=== PATIENT | female | born 1990 | race Caucasian/White ===

== ENCOUNTER → 2019-11-21 10:37 | Outpatient (BNVA) | payer OTHER, SELFPAY | PROVIDERS: Family Provider Registered Nurse; PCP Nurse Practitioner; Referring Provider Obstetrics & Gynecology; Visit Provider Obstetrics & Gynecology | DX: Z32.01 Encounter for pregnancy test, result positive (principal) | CPT/HCPCS: 81025 ==

== ENCOUNTER → 2019-12-12 12:41 | Outpatient (BNVA) | payer OTHER, SELFPAY | PROVIDERS: Family Provider Registered Nurse; PCP Nurse Practitioner; Visit Provider Nurse Practitioner Women's Health | DX: Z01.89 Encounter for other specified special examinations (principal) | CPT/HCPCS: 84315 ==

== ENCOUNTER 2019-12-14 10:42 | Emergency (ER) | payer OTHER, SELFPAY ==
[2019-12-14 11:02] VITALS: BP 132/90; PULSE 96; RESP 17; TEMP 36.7; O2SAT 100; BMI 20.9
--- NOTE | 2019-12-14 11:08 | ED_ITS ---
Entered by Brian Trevino, acting as scribe for Fernando Almeida DO HPI - Abdominal Pain General: Chief Complaint: Abdominal Pain Stated Complaint: 8WEEKS AND CRAMPING Time Seen by Provider: 12/14/19 11:09 History of Present Illness: HPI narrative: 29 yo female presents with abd pain and spotting. Pt states that the spotting has stopped but her abdomen is still hurting. Pt states that she will have some nausea and vomiting. Patient is currently suspect she is about 6 to 8 weeks along. MD elicited complaint: abdominal pain Pertinent past history: none Pain Consistency: intermittent Location: LUQ Severity: mild Quality: cramping Migration to: no migration Exacerbating factors: nothing Relieving factors: nothing Associated Symptoms: Denies chills, coffee ground emesis, constipation, GI cramping, diarrhea, dysuria, fever(s), heartburn, hematochezia, hematuria, hematemesis, melena, nausea, syncope and vomiting Review of Systems Const: Denies: fever, chills, body aches, fatigue, malaise or night sweats Eyes: Denies: change in vision or blurry vision ENMT: Denies: throat pain, oral sores/lesions, dental pain, nasal discharge or nasal congestion Card: Denies: chest pain, palpitations, irregular heart rhythm, edema, syncope, shortness of breath on exertion, shortness of breath when lying down or leg pain with exertion Resp: Denies: shortness of breath, productive cough, non-productive cough or wheezing GI: Denies: abdominal pain, nausea, vomiting, vomiting blood, coffee grounds in vomit, difficulty swallowing, heartburn/indigestion, diarrhea, constipation, cramping, blood in stool or black tarry stool : Denies: flank pain, painful urination, urinary frequency, urinary urgency, urinary incontinence or blood in urine Musc: Denies: neck pain, back pain, extremity pain, extremity swelling, joint pain or joint swelling Skin/Breast: Denies: rash, itching or redness Neuro: Denies: headache, numbness in extremities, weakness in extremities, changes in sensation, lack of coordination, difficulty walking, frequent falls, dizziness, vertigo or confusion Psych: Denies: anxiety, depression, loss of interest, visual hallucinations, auditory hallucinations, suicidal ideation or homicidal ideation Endo: Denies: excessive urination, excessive thirst, tired all the time or cold intolerance Lb/Lymph: Denies: easy bruising, easy bleeding, petechiae, enlarged lymph nodes or tender lymph nodes PFSH ED PFSH: Medical History Endometriosis determined by laparoscopy (~2013) History of PID (~2017) Surgical History H/O laparoscopy 2013--ov cyst removal; caut of endometriosis 2014-- cautery of endometriosis History of appendectomy (~2017) History of cholecystectomy (~2011) Family History Mother Hyperlipidemia Hypertension Family history of thyroid problem Denies family history of Diabetes Cancer Stroke Social History Smoking and tobacco status: never smoked Alcohol intake: former Former alcohol use details: Social before Physical Exam Const: COMMON NORMALS: average body habitus, oriented x3 and alert GENERAL APPEARANCE: cooperative, comfortable, well kempt and well developed NUTRITIONAL APPEARANCE: not obese ORIENTATION/CONSCIOUSNESS: Yes awake, Yes oriented to person and Yes oriented to place HENMT: COMMON NORMALS: normocephalic, head/scalp atraumatic, EAC's normal, TM's normal bilaterally, external nose normal, moist oral mucous membranes and oropharynx normal HEAD & SCALP: normocephalic and atraumatic NOSE: external nose normal EXTERNAL AUDITORY CANAL: EAC's normal TYMPANIC MEMBRANE: TM's normal bilaterally MOUTH: oral and palatal mucosa normal, lip normal and tongue normal THROAT: posterior oropharynx normal and tonsils normal Eye: COMMON NORMALS: PERRL, EOMs intact bilaterally, conjunctivae normal and no scleral icterus CONJUNCTIVA: Yes conjunctivae normal PUPIL: Yes PERRL Neck/C-Spine: COMMON NORMALS: full ROM, no lymphadenopathy, supple, no meningeal signs and thyroid normal THYROID: thyroid normal and asymmetrical Lymph: LYMPHATIC: no lymphadenopathy noted Resp: COMMON NORMALS: normal respiratory effort, no retractions, no use of accessory muscles and clear to auscultation bilaterally AUSCULTATION: clear to auscultation bilaterally Cardio: COMMON NORMALS: regular rate and regular rhythm RATE: regular rate RHYTHM: regular rhythm HEART SOUNDS: no murmurs GI: COMMON NORMALS: normal to inspection, nondistended, normoactive bowel sounds and soft to palpation PALPATION: Yes soft and Yes tender (lower abdomen ) : COMMON NORMALS: Yes no CVA tenderness BLADDER/KIDNEY EXAM: Yes no CVA tenderness Back/Pelvis: COMMON NORMALS: no CVA tenderness LUMBAR SPINE/LOWER BACK: Yes normal to inspection Extremity: COMMON NORMALS: no clubbing, cyanosis or edema, no calf tenderness and no pedal edema Neuro: COMMON NORMALS: oriented x3 SENSORIUM/ORIENTATION: Yes alert, Yes oriented to person and Yes oriented to place MENINGEAL SIGNS: Yes no meningeal signs Psych: APPEARANCE: Yes well kempt Skin: COMMON NORMALS: no rashes or lesions noted and skin turgor normal GENERAL SKIN EXAM: no rashes or lesions noted and turgor normal Course ED course: Pelvic exam unremarkable there is no blood at the eyes ultrasound confirms intrauterine with subchorionic hemorrhage. Discussed findings with the patient follow-up with primary care doctor in the next within the next week fizzing worsening of bleeding or recurrent Kathrin recheck. Vital Signs: Vital signs: Vital Signs Temperature 98.1 F 12/14/19 11:02 Pulse Rate 87 12/14/19 12:32 Respiratory Rate 15 12/14/19 12:32 Blood Pressure 121/72 12/14/19 12:32 Pulse Oximetry 100 12/14/19 12:32 MDM - Abdominal Pain Lab Data: Labs: Lab Results 12/14/19 12/14/19 12/14/19 Range/Units 11:18 11:18 11:27 WBC (4.0-10.0) 10^3/ uL RBC (4.1-5.3) 10^6/u L Hgb (11.5-15.3) g/dL Hct (37.0-47.0) % MCV (81-99) fL MCH (28.0-34.0) pg MCHC (30.0-36.0) g/dL RDW (12.1-15.1) % Plt Count (130-400) 10^3/c mm MPV (7.4-10.4) fL Neut % (Auto) % Lymph % (Auto) % [place] % (Auto) % Eos % (Auto) % Baso % (Auto) % Neut # (Auto) (1.8-7.7) 10^3/u L Lymph # (Auto) (0.8-4.8) 10^3/u L [place] # (Auto) (0.2-0.9) 10^3/u L Eos # (Auto) (0.0-0.8) 10^3/u L Baso # (Auto) (0.0-0.1) 10^3/u L Nucleated RBC % (a uto) % Nucleated RBCs # /100WBC Sodium (136-145) mmol/L Potassium (3.5-5.1) mmol/L Chloride (98-107) mmol/L Carbon Dioxide (22-29) mmol/L Anion Gap (5-19) BUN (6-20) mg/dL Creatinine (0.5-0.9) mg/dL GFR Calculation (90-130) mL/min Glucose (65-115) mg/dL Calcium (8.5-10.5) mg/dL Total Bilirubin (0.15-1.2) mg/dL AST (0-32) U/L ALT (0-33) U/L Alkaline Phosphata se (35-105) IU/L Total Protein (6.6-8.7) g/dL Albumin (3.5-5.2) g/dL Globulin (1.3-4.6) g/dL HCG, Qual Positive H (Negative) Ser , Chaz i-Qnt mIU/mL Urine Color Straw (Yellow) Urine Appearance Clear (CLEAR) Urine pH 7.0 (5-7) Ur Specific Gravit y 1.010 (1.005-1.030) Urine Protein Neg (Negative) Urine Glucose (UA) Norm (Normal) Urine Ketones Negative (Negative) Urine Blood Neg (Negative) Urine Nitrate Negative (Negative) Urine Bilirubin Neg (NEGATIVE) Urine Urobilinogen Norm (Negative) mg/dL Ur Leukocyte Geovanna ase Negative (Negative) Rho(D) Type Positive 12/14/19 12/14/19 Range/Units 11:27 11:27 WBC 7.7 (4.0-10.0) 10^3/ uL RBC 3.88 L (4.1-5.3) 10^6/u L Hgb 11.8 (11.5-15.3) g/dL Hct 35.5 L (37.0-47.0) % MCV 91.5 (81-99) fL MCH 30.4 (28.0-34.0) pg MCHC 33.2 (30.0-36.0) g/dL RDW 12.5 (12.1-15.1) % Plt Count 202 (130-400) 10^3/c mm MPV 9.8 (7.4-10.4) fL Neut % (Auto) 69.9 % Lymph % (Auto) 18.2 % [place] % (Auto) 10.7 % Eos % (Auto) 0.7 % Baso % (Auto) 0.1 % Neut # (Auto) 5.4 (1.8-7.7) 10^3/u L Lymph # (Auto) 1.4 (0.8-4.8) 10^3/u L [place] # (Auto) 0.8 (0.2-0.9) 10^3/u L Eos # (Auto) 0.1 (0.0-0.8) 10^3/u L Baso # (Auto) 0.0 (0.0-0.1) 10^3/u L Nucleated RBC % (a uto) 0 % Nucleated RBCs # 0.0 /100WBC Sodium 136 (136-145) mmol/L Potassium 4.1 (3.5-5.1) mmol/L Chloride 102 (98-107) mmol/L Carbon Dioxide 22 (22-29) mmol/L Anion Gap 16.1 (5-19) BUN 7 (6-20) mg/dL Creatinine 0.6 (0.5-0.9) mg/dL GFR Calculation 118.2 (90-130) mL/min Glucose 96 (65-115) mg/dL Calcium 9.8 (8.5-10.5) mg/dL Total Bilirubin 0.4 (0.15-1.2) mg/dL AST 12 (0-32) U/L ALT 7 (0-33) U/L Alkaline Phosphata se 38 (35-105) IU/L Total Protein 7.5 (6.6-8.7) g/dL Albumin 4.3 (3.5-5.2) g/dL Globulin 3.2 (1.3-4.6) g/dL HCG, Qual (Negative) Ser , Chaz i-Qnt 04063.00 mIU/mL Urine Color (Yellow) Urine Appearance (CLEAR) Urine pH (5-7) Ur Specific Gravit y (1.005-1.030) Urine Protein (Negative) Urine Glucose (UA) (Normal) Urine Ketones (Negative) Urine Blood (Negative) Urine Nitrate (Negative) Urine Bilirubin (NEGATIVE) Urine Urobilinogen (Negative) mg/dL Ur Leukocyte Geovanna ase (Negative) Rho(D) Type Discharge Plan Discharge Patient Disposition: Home, Self-Care Clinical Impression: Subchorionic hemorrhage in first trimester Condition: Stable Prescriptions: No Action No Known Home Medications RF: 0 Discharge Orders: Discharge Order (Routine); Ordered 12/14/19 Ordered By: Fernando Almeida Referrals: Juliane Sood FNP [Primary Care Provider] - Faith Daniel FNP [Family Provider] - Discharge Diet: Usual diet Discharge Activity: Limit activity as instructed Activity Restrictions/Additional Instructions: Follow-up with your OB doctor early next week. Discharge Date/Time: 12/14/19 12:33 Coding Level of Care Code ED Automotive Technician for Chg Fwd Exam Comprehensive The documentation recorded by the Uriel miranda Kialy, accurately reflects the service I personally performed and the decisions made by Juan Pablo dumont Curtis L, DO Dec 14, 2019 10:42
[2019-12-14 11:12] VITALS: PULSE 76; RESP 16; O2SAT 97
[2019-12-14 11:14] VITALS: RESP 16
[2019-12-14 11:23] LABS: Add Urine Microscopic? NO
--- NOTE | 2019-12-14 11:27 | US_ITS ---
WS: [id number] OB ultrasound, 12/14/2019 Clinical Data: viability Comparison: None. Findings: There is a single intrauterine . There is an IUD in the endometrium. The crown-rump length i s 1.02 cm consistent with a 7 week 1 day gestational age with an SHARYN of 07/31/2020. heart rate is 144 bpm There is a small subchorionic hematoma which measures 0.38 x 0.46 x 0.99 cm. The uterus measures 4.1 x 8.1 cm. The right ovary is 2.26 x 2.49 x 3.83 cm with a simple cyst within measuring 1.0 x 1.7 x 1.68 cm. The left ovary measures 1.98 x 2.47 x 3.29 cm and has a small cyst lenny suring 1.09 x 1.12 x 1.89 cm. US/ OB limited [id number] Impression: 1. Single intrauterine .. 2. Estimated gestational age 7w1d with an SHARYN of 07/31/2020. 3. heart rate 144 beats per minute.
[2019-12-14 11:44] LABS: Basophils % 0.1 %; Eosinophils # 0.1 10^3/uL (0.0-0.8); Eosinophils % 0.7 %; Hematocrit 35.5 % (37.0-47.0); Hemoglobin 11.8 g/dL (11.5-15.3); Lymphocytes # 1.4 10^3/uL (0.8-4.8); Lymphocytes % 18.2 %; Mean Corpuscular HGB Conc 33.2 g/dL (30.0-36.0); Mean Corpuscular Hemoglobin 30.4 pg (28.0-34.0); Mean Corpuscular Volume 91.5 fL (81-99); Mean Platelet Volume 9.8 fL (7.4-10.4); Monocytes # 0.8 10^3/uL (0.2-0.9); Monocytes % 10.7 %; Neutrophils # 5.4 10^3/uL (1.8-7.7); Neutrophils % 69.9 %; Nucleated Red Blood Cells % 0 %; Platelet Count 202 10^3/cmm (130-400); Red Blood Count 3.88 10^6/uL (4.1-5.3); Red Cell Distribution Width 12.5 % (12.1-15.1); White Blood Count 7.7 10^3/uL (4.0-10.0)
[2019-12-14 11:51] LABS: HCG Qualitative Urine. Positive (Negative)
[2019-12-14 11:52] LABS: Bilirubin Urine Neg (NEGATIVE); Blood Urine Neg (Negative); Glucose Urine UA Norm (Normal); Ketones Urine Negative (Negative); Leukocyte Esterase Urine Negative (Negative); Nitrate Urine Negative (Negative); Protein Urine Neg (Negative); Urine Appearance Clear (CLEAR); Urine Color Straw (Yellow); Urobilinogen Urine Norm (Negative)
[2019-12-14 12:08] LABS: Alanine Aminotransferase 7 U/L (0-33); Albumin Level 4.3 g/dL (3.5-5.2); Alkaline Phosphatase 38 IU/L (35-105); Anion Gap 16.1 (5-19); Aspartate Amino Transferase 12 U/L (0-32); Blood Urea Nitrogen 7 mg/dL (6-20); Calcium 9.8 mg/dL (8.5-10.5); Carbon Dioxide 22 mmol/L (22-29); Chloride 102 mmol/L (98-107); Globulin 3.2 g/dL (1.3-4.6); Glomerular Filtration Rate 118.2 mL/min (90-130); Glucose 96 mg/dL (65-115); Potassium 4.1 mmol/L (3.5-5.1); Sodium 136 mmol/L (136-145); Total Bilirubin 0.4 mg/dL (0.15-1.2); Total Protein 7.5 g/dL (6.6-8.7)
[2019-12-14 12:32] VITALS: BP 121/72; PULSE 87; RESP 15; O2SAT 100
== END 2019-12-14 12:33 | disposition home or self-care (01) ==
PROVIDERS: Emergency Provider Family Medicine; Family Provider Registered Nurse; PCP Nurse Practitioner
DX: O46.8X1 Other antepartum hemorrhage, first trimester (principal); Z3A.01 Less than 8 weeks gestation of pregnancy
CPT/HCPCS: 36415; 76815; 80053; 81003; 81025; 84702; 85025; 87210; 87491; 87591; 87661; 99281; 99283; E0352

== ENCOUNTER → 2020-01-01 11:11 | Outpatient (BNVA) | payer OTHER, SELFPAY | PROVIDERS: Family Provider Registered Nurse; PCP Nurse Practitioner; Visit Provider Obstetrics & Gynecology | DX: Z01.89 Encounter for other specified special examinations (principal) | CPT/HCPCS: 84315 ==

== ENCOUNTER 2020-03-14 14:11 | Outpatient (CLI) | payer OTHER, MEDICAID, SELFPAY ==
--- NOTE | 2020-03-14 14:15 | US_ITS ---
WS: [id number] OBSTETRICAL ULTRASOUND COMPLETE HISTORY: ANATOMY COMPARISON: 12/14/2019 Single intrauterine gestation in variable presentation. Cervix is not well visualized. Normal amount of amniotic fluid surrounds the fetus. Placenta: Posterior and fundal. No previa or abruption. Placenta grade 0 Heart: 141 BPM. Four chambers are identified. Anatomy: Intracranial structures are limited due to positioning. Cervical spine is not well visualize d. The remaining spine is negative. kidneys, stomach and urinary bladder are unremarkable. Abdo jos wall, three-vessel cord and cord insertion site are normal. 4 extremities are present. profile: Not well visualized. Gender: Female. measurements: BPD = 4.7 cm = 20w1d HC = 17.6 cm = 20w1d AC = 14.7 cm = 20w0d FL = 3.3 cm = 20w1d EFW: 332 g., AGA by ultrasound: 20w1d SHARYN by ultrasound: 07/31/2020 US/US OB >= 14 weeks fetus [id number] IMPRESSION: 1. Single intrauterine gestation of 20w1d with an SHARYN of 07/31/2020. Appropria te growth since the prior ultrasound. 2. Poor evaluation of the cervix, profile, cervical spine and intracrani al structures. Recommend short-term follow-up. The remaining anatomy is negativ e.
== END 2020-03-14 14:12 | disposition home or self-care (01) ==
LOC: RAD 14:14
PROVIDERS: PCP Registered Nurse; Visit Provider Family Medicine
DX: Z34.80 Encounter for supervision of other normal pregnancy, unspecified trimester (principal); Z3A.20 20 weeks gestation of pregnancy
CPT/HCPCS: 76805

== ENCOUNTER 2020-04-18 13:27 | Outpatient (CLI) | payer OTHER, MEDICAID, SELFPAY ==
--- NOTE | 2020-04-18 13:33 | US_ITS ---
WS: [id number] ULTRASOUND OB LIMITED TECHNIQUE: Limited ultrasound examination of the fetus. CLINICAL INFORMATION: SUPERVISION NORMAL COMPARISON: March 14, 2020 FINDINGS: Intracranial contents appear normal today. Normal cervical spine. profile not seen to day. Cervix measures 2.5 cm. Single interuterine gestation. presentation is cephalic Placental location is posterior. Placenta grade: 0. heart rate 157 BPM. EGA by ultrasound: 25 weeks 1 day SHARYN by ultrasound: July 31, 2020 [place] [id number] IMPRESSION: 1. Intracranial contents appear normal today. Cervical spine normal. 2. profile again not well seen today. 3. Cervix measures 2.5 CM.
== END 2020-04-18 13:28 | disposition home or self-care (01) ==
LOC: RAD 13:29
PROVIDERS: PCP Registered Nurse; Visit Provider Family Medicine
DX: Z34.80 Encounter for supervision of other normal pregnancy, unspecified trimester (principal)
CPT/HCPCS: 76816

== ENCOUNTER 2020-05-06 08:50 | Observation (INO) | payer SELFPAY ==
[2020-05-06 09:05] VITALS: BMI 24.4
[2020-05-06 09:23] VITALS: RESP 20; TEMP 36.8
[2020-05-06 09:58] LABS: Basophils % 0.2 %; Eosinophils # 0.4 10^3/uL (0.0-0.8); Eosinophils % 4.3 %; Hematocrit 35.2 % (37.0-47.0); Hemoglobin 11.5 g/dL (11.5-15.3); Lymphocytes # 1.3 10^3/uL (0.8-4.8); Lymphocytes % 12.2 %; Mean Corpuscular HGB Conc 32.7 g/dL (30.0-36.0); Mean Corpuscular Hemoglobin 30.3 pg (28.0-34.0); Mean Corpuscular Volume 92.9 fL (81-99); Mean Platelet Volume 9.8 fL (7.4-10.4); Monocytes # 0.9 10^3/uL (0.2-0.9); Monocytes % 8.9 %; Neutrophils # 7.57 10^3/uL (1.8-7.7); Neutrophils % 73.5 %; Nucleated Red Blood Cells % 0 %; Platelet Count 171 10^3/cmm (130-400); Red Blood Count 3.79 10^6/uL (4.1-5.3); White Blood Count 10.3 10^3/uL (4.0-10.0)
[2020-05-06] MEDS: lactated ringers 1,000 ML 999 ML IV (09:58)
--- NOTE | 2020-05-06 10:06 | PC.NURSE ---
PT HERE WITH C/O SHORTNESS OF BREATH FOR PAST 2 DAYS. DENIES COUGHING ANYTHING UP, SOUNDS VERY NASAL CONGESTION, PT STATES BLEW HER NOSE THIS AM HAD CLEAR DISCHARGE. PT STATES CHEST FEELS TIGHT ACROSS STERNUM. SHE SAYS THIS SHORTNESS OF BREATH HAS BEEN GOING ON FOR THE PAST 2 DAYS.
[2020-05-06 10:25] LABS: Add Urine Culture? No; Bacteria Urine TRACE; Bilirubin Urine Neg (NEGATIVE); Blood Urine 2+ (Negative); Glucose Urine UA Norm (Normal); Ketones Urine Negative (Negative); Leukocyte Esterase Urine Negative (Negative); Nitrate Urine Negative (Negative); Protein Urine 1+ (Negative); Specific Gravity, Urine 1.015 (1.005-1.030); Squamous Epithelial Cell Urine 0-4 (0-5); Urine Appearance Clear (CLEAR); Urine Color Straw (Yellow); Urobilinogen Urine Norm (Negative); WBC Urine 0-4 /hpf (0-5); pH Urine 7 (5-7)
[2020-05-06 10:27] LABS: Alanine Aminotransferase 9 U/L (0-33); Albumin Level 3.8 g/dL (3.5-5.2); Alkaline Phosphatase 51 IU/L (35-105); Anion Gap 14.4 (5-19); Aspartate Amino Transferase 15 U/L (0-32); Blood Urea Nitrogen 6 mg/dL (6-20); Calcium 8.8 mg/dL (8.5-10.5); Carbon Dioxide 19 mmol/L (22-29); Chloride 106 mmol/L (98-107); Glomerular Filtration Rate 145.9 mL/min (90-130); Glucose 89 mg/dL (65-115); Osmolality Calculated 277 mOsm/kg (285-295); Potassium 3.4 mmol/L (3.5-5.1); Sodium 136 mmol/L (136-145); Total Bilirubin 0.3 mg/dL (0.15-1.2); Total Protein 6.8 g/dL (6.6-8.7)
[2020-05-06 11:38] VITALS: BP 113/67; PULSE 85; RESP 20; TEMP 36.8; O2SAT 100
== END 2020-05-06 11:20 | disposition home or self-care (01) ==
PROVIDERS: Admitting Provider Family Medicine; PCP Registered Nurse; Visit Provider Family Medicine
DX: O26.899 Other specified pregnancy related conditions, unspecified trimester (principal); Z3A.00 Weeks of gestation of pregnancy not specified; R06.02 Shortness of breath; R42 Dizziness and giddiness
CPT/HCPCS: 36415; 80053; 81001; 85025; 85378; 86141; 87635; 99211; G0378; G0379

== ENCOUNTER 2020-05-16 12:52 | Outpatient (CLI) | payer OTHER, MEDICAID, SELFPAY ==
--- NOTE | 2020-05-16 12:57 | XR_ITS ---
WS: [id number] CHEST 2 VIEWS HISTORY: DYSPNEA COMPARISON: 12/24/2010 Lungs: Clear with no abnormality. No pleural effusion or pneumothorax. Cardiac size: Normal. Mediastinum/Aorta: Normal mediastinum. Bones: Normal. Patient shielded. XR/XR chest 2V* [id number] IMPRESSION: Normal chest.
== END 2020-05-16 12:53 | disposition home or self-care (01) ==
LOC: RADWPI 12:56
PROVIDERS: Family Provider Registered Nurse; PCP Registered Nurse; Visit Provider Family Medicine
DX: R06.00 Dyspnea, unspecified (principal)
CPT/HCPCS: 71046

== ENCOUNTER 2020-05-17 12:40 | Outpatient (CLI) | payer OTHER, MEDICAID, SELFPAY ==
[2020-05-17 12:58] VITALS: BP 104/64; PULSE 80
[2020-05-17 13:13] VITALS: BP 104/67; PULSE 84
[2020-05-17 13:23] VITALS: BP 103/64; PULSE 88
[2020-05-17 13:31] VITALS: RESP 15; TEMP 36.7
[2020-05-17 13:31] LABS: Glucose Point of Care 93 mg/dL (70-110)
[2020-05-17 13:32] VITALS: BMI 23.9
[2020-05-17 13:33] VITALS: BP 100/59; PULSE 84
--- NOTE | 2020-05-17 13:35 | PC.NURSE ---
pt off monitors to be sent to ER for evaluation
[2020-05-17 13:36] VITALS: BP 105/67; PULSE 93
== END 2020-05-17 13:40 | disposition home or self-care (01) ==
LOC: OPOB 12:44 → OBGYN 12:45
PROVIDERS: Family Provider Registered Nurse; PCP Registered Nurse; Visit Provider Family Medicine
DX: O26.899 Other specified pregnancy related conditions, unspecified trimester (principal); Z3A.00 Weeks of gestation of pregnancy not specified; H54.7 Unspecified visual loss
CPT/HCPCS: 36416; 59025; 82962; 99211

== ENCOUNTER 2020-05-17 13:51 | Emergency (ER) | payer OTHER, MEDICAID, SELFPAY ==
[2020-05-17 13:57] VITALS: BP 111/67; PULSE 84; RESP 18; TEMP 36.9; O2SAT 100; BMI 24.6
--- NOTE | 2020-05-17 13:58 | ECG_ITS ---
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 Measurements Intervals [place] Rate: 78 P: 31 MD: 156 QRS: 27 QRSD: 96 T: 33 QT: 363 QTc: 413 Interpretive Statements SINUS RHYTHM No previous ECG available for comparison Electronically Signed On 05-17-2020 16:07:11 CDT by Julien Dickerson M.D. [id number]
--- NOTE | 2020-05-17 13:58 | CT_ITS ---
WS: [id number] CT HEAD TECHNIQUE: Noncontrast CT of the head obtained from the skullbase to the vertex. CLINICAL INFORMATION: Symptoms of Acute Stroke COMPARISON: None. DLP: 707.[address] scans at [facility] use at least one of these dose optimization techniques: automat ed exposure control; mA and/or kV adjustment per patient size (includes targeted exams where dose is matched to clinical indication); or iterative reconstruction. FINDINGS: No evidence of intracranial hemorrhage or mass effect. Ventricular system and basal cisterns are quijano nt. 2 small periventricular lesions in the periventricular white matter suspicious for chronic lacuna r infarcts or less likely sequelae from migraine headaches or demyelinating lesions. This could be fo llowed up with MRI. No other suspicious findings. Paranasal sinuses and mastoid air cells are well aerated. .Normal visualized soft tissues. Notified Fernando Almeida DO at 05/17/2020 2:[address]/CT head wo con* [id number] IMPRESSION: 1. No evidence of intracranial hemorrhage or mass effect 2. 2 small low-attenuation lesions in the bilateral periventricular white reese er suspicious for chronic ischemia/lacunar infarcts or less likely sequelae fro m migraine headaches or demyelinating disease. This can be followed up with MRI on an elective basis. 3. No acute intracranial findings.
--- NOTE | 2020-05-17 14:32 | W.ED.NEUROSD ---
HPI - Neuro Symptoms/Deficit General: Chief Complaint: Eye Problems Stated Complaint: blurred vision/29 weeks preg Time Seen by Provider: 05/17/20 13:58 History of Present Illness: HPI Narrative: 29-year-old female G5, P3 SAB 1 is at 29 weeks gestation sent in by her OB for acute vision changes symptoms. They are no longer present but she has had episodes where she has had scotoma and what she describes as wavy lines at the periphery of her vision. She is was evaluated in the office today for preeclampsia and had no significant findings in terms of blood pressure or proteinuria or edema. She had a known previous neuro deficits or strokes. Onset (ago): day(s) Timing confirmed by: family member Location: altered (Vision) History of same: Yes Severity: moderate Quality: weak Relieving factors: none Exacerbating factors: none Context: gradual onset On Anticoagulants: Yes Associated symptoms: Reports headache(s); Deny chest pain, malaise, nausea or vomiting Treatments Prior to Arrival: none Review of Systems Const: Denies: fever(s), chills, body aches, change in appetite, fatigue or malaise ENMT: Denies: throat pain, ear or mastoid pain, nasal discharge or nasal congestion Card: Denies: chest pain, edema, dyspnea on exertion or orthopnea Resp: Denies: dyspnea, productive cough or non-productive cough GI: Denies: abdominal pain, nausea, vomiting, hematemesis, coffee ground emesis, diarrhea, constipation, bloating, hematochezia or melena : Denies: flank pain, difficulty voiding, dysuria, urinary frequency or urinary urgency Skin/Breast: Denies: rash or pruritus Neuro: Reports: headache(s) PFSH ED PFSH: Medical History Endometriosis determined by laparoscopy (~2013) History of PID (~2017) Surgical History H/O laparoscopy 2013--ov cyst removal; caut of endometriosis 2014-- cautery of endometriosis History of appendectomy (~2017) laparosopic History of cholecystectomy (~2011) Laparoscopic Family History Mother Hyperlipidemia Hypertension Family history of thyroid problem Denies family history of Diabetes Cancer Stroke Social History Smoking and tobacco status: never smoked Alcohol intake: former Former alcohol use details: Social before Physical Exam Const: COMMON NORMALS: no acute distress GENERAL APPEARANCE: cooperative and comfortable ORIENTATION/CONSCIOUSNESS: Yes awake, Yes oriented to person, Yes oriented to place and Yes oriented to time HENMT: COMMON NORMALS: normocephalic, atraumatic, hearing grossly normal bilaterally, external ears normal, EAC's normal, TM's normal bilaterally, Normal nasal mucous membranes and turbinates present, moist oral mucous membranes and oropharynx normal HEAD & SCALP: normocephalic and atraumatic NOSE: Normal nasal mucous membranes and turbinates present EXTERNAL EAR: Yes external ears normal EXTERNAL AUDITORY CANAL: EAC's normal TYMPANIC MEMBRANE: TM's normal bilaterally Eye: COMMON NORMALS: Equal, round and reactive pupils present, EOMs intact bilaterally, conjunctivae normal and no scleral icterus CONJUNCTIVA: Yes conjunctivae normal PUPIL: Yes Equal, round and reactive pupils present Neck/C-Spine: COMMON NORMALS: full ROM, no lymphadenopathy, supple and no JVD Lymph: LYMPHATIC: no lymphadenopathy noted and no lymphedema noted Resp: COMMON NORMALS: normal respiratory effort, No retractions, No use of accessory muscles and clear to auscultation bilaterally AUSCULTATION: clear to auscultation bilaterally Cardio: COMMON NORMALS: no JVD, regular rate, regular rhythm and No murmurs present (Cardio) RATE: regular rate RHYTHM: regular rhythm GI: COMMON NORMALS: Soft to palpation and No hepatosplenomegaly present AUSCULTATION: Yes normoactive bowel sounds PALPATION: Yes Soft to palpation, No Tenderness to palpation present (GI), No Guarding due to palpation present (GI) and Yes No hepatosplenomegaly present Extremity: COMMON NORMALS: normal to inspection, capillary refill normal, no clubbing, cyanosis or edema, no calf tenderness and no pedal edema Neuro: SENSORIUM/ORIENTATION: Yes oriented to person, Yes oriented to place and Yes oriented to time Skin: COMMON NORMALS: no rashes or lesions noted GENERAL SKIN EXAM: no rashes or lesions noted Course Vital Signs: Vital signs: Vital Signs Temperature 98.5 F 05/17/20 13:57 Pulse Rate 87 05/17/20 17:36 Respiratory Rate 18 05/17/20 17:36 Blood Pressure 97/60 05/17/20 17:36 Pulse Oximetry 99 05/17/20 17:36 MDM - Neuro Symptoms/Deficit MDM Narrative: Medical decision making narrative: Discussed CT findings with the patient. Peter need an MRI and possible neurological consult after delivery. Called and discussed with Dr. Pennington. Made him aware of the CT findings and the concerns from radiology. Also made aware the recommendation with MRI of her head after she delivers. Suspect some of her visual symptoms may be due to migraine variant after discussion with Dr. isabella Pennington decided to start a low-dose amitriptyline and he may adjust dose to the office. Discussed with the patient she should do follow-up with Dr. Pennington within the next week. Lab Data: Labs: Lab Results 05/17/20 05/17/20 05/17/20 Range/Units 14:46 14:46 14:46 WBC 10.7 H (4.0-10.0) 10^3/ uL RBC 3.42 L (4.1-5.3) 10^6/u L Hgb 10.7 L (11.5-15.3) g/dL Hct 32.1 L (37.0-47.0) % MCV 93.9 (81-99) fL MCH 31.3 (28.0-34.0) pg MCHC 33.3 (30.0-36.0) g/dL RDW 12.7 (12.1-15.1) % Plt Count 163 (130-400) 10^3/c mm MPV 9.4 (7.4-10.4) fL Neut % (Auto) 77.9 % Lymph % (Auto) 13.4 % [place] % (Auto) 7.0 % Eos % (Auto) 0.9 % Baso % (Auto) 0.2 % Neut # (Auto) 8.37 H (1.8-7.7) 10^3/u L Lymph # (Auto) 1.4 (0.8-4.8) 10^3/u L [place] # (Auto) 0.8 (0.2-0.9) 10^3/u L Eos # (Auto) 0.1 (0.0-0.8) 10^3/u L Baso # (Auto) 0.0 (0.0-0.1) 10^3/u L Nucleated RBC % (a uto) 0 % Nucleated RBCs # 0.0 /100WBC PT 12.50 (10.5-13.3) SECO NDS INR 0.90 (0.8-1.2) APTT 28.1 (23.9-36.7) SECO NDS Sodium 135 L (136-145) mmol/L Potassium 3.6 (3.5-5.1) mmol/L Chloride 105 (98-107) mmol/L Carbon Dioxide 21 L (22-29) mmol/L Anion Gap 12.6 (5-19) BUN 6 (6-20) mg/dL Creatinine 0.5 (0.5-0.9) mg/dL GFR Calculation 145.9 H (90-130) mL/min Glucose 85 (65-115) mg/dL Calculated Osmolal ity 275 L (285-295) mOsm/k g Calcium 9.2 (8.5-10.5) mg/dL Total Bilirubin 0.5 (0.15-1.2) mg/dL AST 16 (0-32) U/L ALT 8 (0-33) U/L Alkaline Phosphata se 48 (35-105) IU/L Total Protein 6.7 (6.6-8.7) g/dL Albumin 4.0 (3.5-5.2) g/dL Globulin 2.7 (1.3-4.6) g/dL Discharge Plan Discharge Patient Disposition: Home Clinical Impression: Transient vision disturbance, Headache, variant migraine, Lacunar infarction Condition: Stable Prescriptions: New amitriptyline 10 mg tablet 10 mg PO DAILY Qty: 30 RF: 0 No Action prenat.vits,bi,[id number] Tablet 1 tab PO DAILY RF: 0 ferrous sulfate 325 mg (65 mg iron) tablet,delayed release (DR/EC) 325 mg PO DAILY RF: 0 Discharge Orders: Discharge Order (Routine); Ordered 05/17/20 Ordered By: Fernando Almeida Referrals: Faith Daniel, KARELY [Primary Care Provider] - Discharge Diet: Advance as tolerated Discharge Activity: Increase activity as tolerated Activity Restrictions/Additional Instructions: Follow-up with Dr. Pennington next week Discharge Date/Time: 05/17/20 17:36 Coding Level of Care Code ED Store Administrative Assistant for Chg Fwd Exam Comprehensive
[2020-05-17 14:56] LABS: Basophils % 0.2 %; Eosinophils # 0.1 10^3/uL (0.0-0.8); Eosinophils % 0.9 %; Hematocrit 32.1 % (37.0-47.0); Hemoglobin 10.7 g/dL (11.5-15.3); Lymphocytes # 1.4 10^3/uL (0.8-4.8); Lymphocytes % 13.4 %; Mean Corpuscular HGB Conc 33.3 g/dL (30.0-36.0); Mean Corpuscular Hemoglobin 31.3 pg (28.0-34.0); Mean Corpuscular Volume 93.9 fL (81-99); Mean Platelet Volume 9.4 fL (7.4-10.4); Monocytes # 0.8 10^3/uL (0.2-0.9); Neutrophils # 8.37 10^3/uL (1.8-7.7); Neutrophils % 77.9 %; Nucleated Red Blood Cells % 0 %; Platelet Count 163 10^3/cmm (130-400); Red Blood Count 3.42 10^6/uL (4.1-5.3); Red Cell Distribution Width 12.7 % (12.1-15.1); White Blood Count 10.7 10^3/uL (4.0-10.0)
[2020-05-17 15:03] VITALS: BP 105/69; PULSE 88; RESP 18; O2SAT 100
[2020-05-17 15:06] LABS: Partial Thromboplastin Time 28.1 SECONDS (23.9-36.7)
[2020-05-17 15:11] LABS: Alanine Aminotransferase 8 U/L (0-33); Alkaline Phosphatase 48 IU/L (35-105); Anion Gap 12.6 (5-19); Aspartate Amino Transferase 16 U/L (0-32); Blood Urea Nitrogen 6 mg/dL (6-20); Calcium 9.2 mg/dL (8.5-10.5); Carbon Dioxide 21 mmol/L (22-29); Chloride 105 mmol/L (98-107); Creatinine Clr Calc Pharmacy 148.4954; Globulin 2.7 g/dL (1.3-4.6); Glomerular Filtration Rate 145.9 mL/min (90-130); Glucose 85 mg/dL (65-115); Osmolality Calculated 275 mOsm/kg (285-295); Potassium 3.6 mmol/L (3.5-5.1); Sodium 135 mmol/L (136-145); Total Bilirubin 0.5 mg/dL (0.15-1.2); Total Protein 6.7 g/dL (6.6-8.7)
--- NOTE | 2020-05-17 15:56 | CTR_ITS ---
PROCEDURE INFORMATION: Exam: CT Angiography Head With Contrast Exam date and time: 05/17/2020 4:12 PM Age: 29 years old Clinical indication: Visual disturbance; Other visual defect; Patient HX: 29 wks preg C/O R frontal PICKETT and blurred vision; Additional info: Tia's TECHNIQUE: Imaging protocol: Computed tomography angiography of the head with intravenous contrast. 3D rendering: MIP and/or 3D reconstructed images were created by the technologist. Radiation optimization: All CT scans at this facility use at least one of these dose optimization techniques: automated exposure control; mA and/or kV adjustment per patient size (includes targeted exams where dose is matched to clinical indication); or iterative reconstruction. Contrast material: VISI 320; Contrast volume: 95 ml; Contrast route: INTRAVENOUS (IV); COMPARISON: CT head wo con* [id number] 05/17/2020 2:03 PM RADIATION DOSE METRICS: Total DLP (mGy-cm): 1504.43 FINDINGS: ANTERIOR CIRCULATION: Right internal carotid artery: Unremarkable. Intracranial segment is patent with no significant stenosis. No aneurysm. Right middle cerebral artery: Unremarkable. No occlusion or significant stenosis. No aneurysm. Right anterior cerebral artery: Unremarkable. No occlusion or significant stenosis. No aneurysm. Left internal carotid artery: Unremarkable. Intracranial segment is patent with no significant stenosis. No aneurysm. Left middle cerebral artery: Unremarkable. No occlusion or significant stenosis. No aneurysm. Left anterior cerebral artery: Unremarkable. No occlusion or significant stenosis. No aneurysm. POSTERIOR CIRCULATION: Right vertebral artery: Unremarkable. No occlusion or significant stenosis. No aneurysm. Left vertebral artery: Unremarkable. No occlusion or significant stenosis. No aneurysm. Basilar artery: Unremarkable. No occlusion or significant stenosis. No aneurysm. Right posterior cerebral artery: Unremarkable. No occlusion or significant stenosis. No aneurysm. Left posterior cerebral artery: Unremarkable. No occlusion or significant stenosis. No aneurysm. IMPRESSION: No large vessel stenosis or occlusion. PROCEDURE INFORMATION: Exam: CT Angiography Neck With Contrast Exam date and time: 05/17/2020 4:12 PM Age: 29 years old Clinical indication: Visual disturbance; Other visual defect; Patient HX: 29 wks preg C/O R frontal PICKETT and blurred vision; Additional info: Tia's TECHNIQUE: Imaging protocol: Computed tomography angiography of the neck with intravenous contrast. 3D rendering: MIP and/or 3D reconstructed images were created by the technologist. Radiation optimization: All CT scans at this facility use at least one of these dose optimization techniques: automated exposure control; mA and/or kV adjustment per patient size (includes targeted exams where dose is matched to clinical indication); or iterative reconstruction. Contrast material: VISI 320; Contrast volume: 95 ml; Contrast route: INTRAVENOUS (IV); COMPARISON: CT head wo con* [id number] 05/17/2020 2:03 PM RADIATION DOSE METRICS: Total DLP (mGy-cm): 1504.43 FINDINGS: Right common carotid artery: No stenosis. No dissection or occlusion. Right internal carotid artery: No stenosis of the extracranial segment. No dissection or occlusion. Right external carotid artery: No occlusion or stenosis of the origin. Right vertebral artery: No stenosis. No dissection or occlusion. Left common carotid artery: No stenosis. No dissection or occlusion. Left internal carotid artery: No stenosis of the extracranial segment. No dissection or occlusion. Left external carotid artery: No occlusion or stenosis of the origin. Left vertebral artery: The left vertebral artery origin is from the aortic arch. The artery is patent. There is no stenosis. Bones/joints: No acute fracture. Soft tissues: Normal. No significant soft tissue swelling. CT/CT angio headneck* [id number] IMPRESSION: No acute abnormality. REFERENCES: NASCET CRITERIA. The degree of internal carotid artery stenosis is based on NASCET criteria. Normal is no stenosis. Mild is less than 50% stenosis. Moderate is 50-69% stenosis. Severe is 70% to 99% stenosis. Total occlusion is no detectable patent lumen. Radiation Dose CTDIVOL = (mGy): DLP = 1504.43~1504.43 (mGy-cm)
[2020-05-17] MEDS: iodixanol 320 mg/mL 100mL Btl IV (16:18)
[2020-05-17 17:36] VITALS: BP 97/60; PULSE 87; RESP 18; O2SAT 99
--- NOTE | 2020-05-20 14:52 | PC.SOCIAL ---
Spoke with Samantha at Dr Ellison office regarding ED referral for vision changes. Appointment scheduled for June 12, 2020 4:30pm. Updated patient of this information.
--- NOTE | 2020-07-17 12:32 | DCPLANNER ---
Patient did not attend appointment scheduled for 06.12.[address] Ellison.
== END 2020-05-17 17:36 | disposition home or self-care (01) ==
PROVIDERS: Emergency Provider Family Medicine; PCP Registered Nurse
DX: H53.8 Other visual disturbances (principal); G43.809 Other migraine, not intractable, without status migrainosus; I63.81 Other cerebral infarction due to occlusion or stenosis of small artery
CPT/HCPCS: 12345; 70450; 70496; 70498; 80053; 85025; 85610; 85730; 93005; 99283; 99284; Q9967

== ENCOUNTER 2020-06-21 15:07 | Outpatient (CLI) | payer OTHER, MEDICAID, SELFPAY ==
--- NOTE | 2020-06-21 15:13 | US_ITS ---
WS: [id number] LIMITED OBSTETRICAL ULTRASOUND UMBILICAL ARTERY DOPPLER EVALUATION HISTORY: SMALL FOR GESTATIONAL AGE COMPARISON: 2019, 03/14/2020 and 12/14/2019 Presentation: Breech. Cervix: Closed and normal length. Placenta: Posterior and fundal. No previa or abruption. Grade: 1 HEART: FHR of 144 BPM. measurements: BPD = 8.6 cm = 34w4d HC = 31.5 cm = 35w3d AC = 29.6 cm = 33w4d FL = 6.5 cm = 33w2d MALINDA: 11.5 cm; near the 50th percentile. EFW: 2282 g; 50th %. AGA by ultrasound: 34w2d SHARYN by ultrasound: 07/31/2020 UMBILICAL ARTERY DOPPLER Waveform analysis: Normal systolic and diastolic velocities. Diastolic velocity remains above the bas ronnie. Normal upstroke of waveform. SD ratios: SD ratios range from 1.6 -2.0 Resistivity indices: 0.37-0.50 US/US OB F/U with umb art IMPRESSION: 1. Single intrauterine gestation of 34 weeks 2 days with an EDC of 07/31/2020. Appropriate growth since the first trimester ultrasound. 2. Estimated weight at the 50th percentile for age. 3. Normal amniotic fluid. 4. Normal umbilical artery Doppler evaluation.
== END 2020-06-21 15:08 | disposition home or self-care (01) ==
LOC: RAD 15:10
PROVIDERS: PCP Registered Nurse; Visit Provider Family Medicine
DX: Z36.4 Encounter for antenatal screening for fetal growth retardation (principal)
CPT/HCPCS: 76816; 76820

== ENCOUNTER 2020-06-24 11:10 | Outpatient (CLI) | payer OTHER, MEDICAID, SELFPAY ==
[2020-06-24] VITALS (8 sets, daily range): BP systolic 86–109; BP diastolic 59–74; PULSE 73–96; RESP 17; TEMP 36.5; BMI 25.8
--- NOTE | 2020-06-24 12:09 | USR_ITS ---
PROCEDURE INFORMATION: Exam: US Biophysical Profile Without Non-Stress Test Exam date and time: 06/24/2020 12:40 PM Age: 29 years old Clinical indication: Abnormal findings; Abnormal lab test; Other: Abnormal hr strip; Third; ; Additional info: Non reactive tracing after 28 minutes TECHNIQUE: Imaging protocol: US biophysical profile without non-stress testing. COMPARISON: US OB >= 14 weeks fetus [id number] 03/14/2020 2:16 PM FINDINGS: BIOPHYSICAL PROFILE: Breathin/2 Gross body movements: 2/2 tone: 2/2 Qualitative amniotic fluid: 2/2 Biophysical Profile Score: 8/8 US/US OB BPP wo NST [id number] IMPRESSION: 1. Biophysical profile score is 8 out of 8. 2. Normal 16.4 cm amniotic fluid index. 3. Cephalic presentation. 4. heart beat 144 bpm.
--- NOTE | 2020-06-24 12:40 | PC.NURSE ---
Gil from ultrasound BPP- 05/25, MALINDA 15
[2020-06-24 12:53] LABS: Add Urine Microscopic? YES; Bilirubin Urine Neg (NEGATIVE); Blood Urine 3+ (Negative); Glucose Urine UA Norm (Normal); Ketones Urine Negative (Negative); Leukocyte Esterase Urine 1+ (Negative); Nitrate Urine Negative (Negative); Protein Urine Neg (Negative); Urine Appearance Hazy (CLEAR); Urine Color Yellow (Yellow); Urobilinogen Urine Norm (Negative); pH Urine 7 (5-7)
[2020-06-24 12:58] LABS: RBC Urine 25-40 /hpf (0-2)
[2020-06-24 12:59] LABS: Squamous Epithelial Cell Urine 15-25 (0-5); WBC Urine 0-4 /hpf (0-5)
[2020-06-24 13:00] LABS: Add Urine Culture? No; Bacteria Urine 1+; Coarse Granular Casts Urine 0-4 /lpf; Mucus Urine TRACE; Red Blood Cell Casts Urine 0-4 /lpf
== END 2020-06-24 13:43 | disposition home or self-care (01) ==
LOC: OPOB 11:16 → OBGYN 11:17
PROVIDERS: PCP Registered Nurse; Visit Provider Family Medicine
DX: O26.899 Other specified pregnancy related conditions, unspecified trimester (principal); Z3A.00 Weeks of gestation of pregnancy not specified; R10.2 Pelvic and perineal pain
CPT/HCPCS: 76819; 81001; 99211

== ENCOUNTER → 2020-07-10 13:30 | Outpatient (BNVA) | payer OTHER, MEDICAID, SELFPAY | PROVIDERS: PCP Registered Nurse; Visit Provider Family Medicine | DX: Z20.828 Contact with and (suspected) exposure to other viral communicable diseases (principal) | CPT/HCPCS: 87635 ==

== ENCOUNTER 2020-07-18 09:27 | Outpatient (CLI) | payer OTHER, MEDICAID, SELFPAY ==
--- NOTE | 2020-07-18 09:35 | US_ITS ---
WS: [id number] LIMITED OBSTETRICAL ULTRASOUND HISTORY: SMALL FOR GESTATIONAL AGE COMPARISON: 12/14/2019, 03/14/2020 Presentation: Vertex. Cervix: Closed and normal length. Placenta: Fundal, no previa or abruption. Grade: 2 HEART: FHR of 153 BPM. measurements: BPD = 8.7 cm = 35w1d HC = 32.8 cm = 37w2d AC = 31.3 cm = 35w1d FL = 7.2 cm = 36w4d MALINDA: 12.8 cm EFW: 2771 g; 26 %. AGA by ultrasound: 36w0d SHARYN by ultrasound: 08/15/2020 Fetus measuring just greater than 2 weeks smaller in size in expected as compared to the [facility]. Up DOS circumference and BPD are concordant. Head circumference is measuring slightly greater than the remaining parameters but I believe this is due to the dolichocephalic appearance of the head US/[place] [id number] IMPRESSION: 1. Single intrauterine gestation of 36 weeks 0 days with an EDC of 08/15/2020. 2. weight measuring up to 26 percentile for age. 3. Fetus measuring approximately 2 weeks smaller than expected.
== END 2020-07-18 09:28 | disposition home or self-care (01) ==
LOC: RAD 09:33
PROVIDERS: PCP Registered Nurse; Visit Provider Family Medicine
DX: Z3A.36 36 weeks gestation of pregnancy (principal); O36.5930 Maternal care for other known or suspected poor fetal growth, third trimester, not applicable or unspecified
CPT/HCPCS: 76816

== ENCOUNTER → 2020-07-19 16:33 | Outpatient (BNVA) | payer OTHER, MEDICAID, SELFPAY | PROVIDERS: PCP Registered Nurse; Visit Provider Family Medicine | DX: Z20.828 Contact with and (suspected) exposure to other viral communicable diseases (principal) | CPT/HCPCS: 87635 ==

== ENCOUNTER 2020-07-20 22:20 | Inpatient (IN) | payer OTHER, MEDICAID, SELFPAY ==
[2020-07-20] VITALS (8 sets, daily range): BP systolic 0–132; BP diastolic 0–85; PULSE 72–88; RESP 16–18; TEMP 36.8–36.9; BMI 27.4
[2020-07-20] MEDS: ondansetron 2 mg/ML SDV 2 mL 4 MG IVP (23:08)
[2020-07-20] MEDS: dextrose 5%-lactated ringers 1,000 ML 125 ML IV (23:11)
[2020-07-20] MEDS: ampicillin 2,000 MG in sodium chloride 0.9% (plus) 50 ML 100 MG IV (23:11)
[2020-07-20 23:25] LABS: Basophils % 0.3 %; Eosinophils # 0.1 10^3/uL (0.0-0.8); Eosinophils % 1.1 %; Hematocrit 33.8 % (37.0-47.0); Hemoglobin 10.7 g/dL (11.5-15.3); Lymphocytes # 1.9 10^3/uL (0.8-4.8); Lymphocytes % 16.8 %; Mean Corpuscular HGB Conc 31.7 g/dL (30.0-36.0); Mean Corpuscular Hemoglobin 28.3 pg (28.0-34.0); Mean Corpuscular Volume 89.4 fL (81-99); Mean Platelet Volume 10.2 fL (7.4-10.4); Monocytes % 8.9 %; Neutrophils # 8.31 10^3/uL (1.8-7.7); Neutrophils % 72.5 %; Nucleated Red Blood Cells % 0 %; Platelet Count 214 10^3/cmm (130-400); Red Blood Count 3.78 10^6/uL (4.1-5.3); Red Cell Distribution Width 12.5 % (12.1-15.1); White Blood Count 11.5 10^3/uL (4.0-10.0)
[2020-07-20] MEDS: alum-mag-hydroxide-sime 30 mL UDC PO (23:52)
[2020-07-21] VITALS (91 sets, daily range): BP systolic 0–159; BP diastolic 0–110; PULSE 66–102; RESP 14–18; TEMP 36.6–36.9; O2SAT 91–100
[2020-07-21] MEDS: ampicillin 1,000 MG in sodium chloride 0.9% (plus) 50 ML 100 MG IV ×2 (03:01→07:27)
[2020-07-21] MEDS: alum-mag-hydroxide-sime 30 mL UDC PO (04:25)
[2020-07-21] MEDS: dextrose 5%-lactated ringers 1,000 ML 125 ML IV (07:23)
[2020-07-21] MEDS: oxytocin 30 UNIT/500 ML BAG 4 UNIT IV (07:24)
[2020-07-21] MEDS: lactated ringers 1,000 ML 999 ML IV ×2 (08:10→09:27)
--- NOTE | 2020-07-21 09:42 | ANES.PREANE2 ---
Pre-Anesthetic Assessment Pre-Anesthetic Assessment: Height/Weight: Height 1.6 m Weight 70.307 kg Temp Pulse Resp BP Pulse Ox 98.2 F 70 18 107/67 98 07/21/20 06:30 07/21/20 09:40 07/21/20 06:30 07/21/20 09:40 07/21/20 09:16 Preop Diagnosis: IUP Was Beta Ade taken within 24 hours: N/A Social: Social History: Tobacco and No alcohol Exam: Pre-Anes Outpt Exam: alert and oriented x 3 Airway: Submandibular: WNL History/ROS: No significant history except as noted Pulmonary: Pulmonary: None reported CV/HEM: CV/HEM: HTN : : None reported Hepatic: Hepatic: None reported GI: GI: None reported Metabolic: Metabolic: None reported Musc/skel: Musc/skel: None reported Neuropsych: Neuropsych: Depression Anesthetic Plan: ASA status: 2 Anesthesia: Regional (specify below) Other: Labor Epidural Risk of > 500 ml blood loss (7ml/kg in children): Yes, adequate IV access and fluids planned Meds/Allergies Current Medications: Current Medications Generic Name Dose Route Start Last Admin Trade Name Freq PRN Reason Stop Dose Admin Al Hydrox/Mg [place] x/Simethicone 30 ml 07/20/20 22:13 07/21/20 04:25 Maalox PO 30 ml Q4H PRN Administration INDIGESTION Dextrose/Lactated Ringer's 1,000 mls @ 125 m ls/hr 07/20/20 22:15 07/21/20 07:23 Dextrose 5%-Lact ated Ringers IV 125 mls/hr .Q8H ROLANDA Administration Ampicillin Sodium 1,000 mg/ 50 mls @ 100 mls/ hr 07/21/20 02:27 07/21/20 07:27 Sodium Chloride IV 100 mls/hr Q4H ROLANDA Administration Protocol Oxytocin 30 unit in 500 ml s @ 4 mls/hr 07/21/20 07:30 07/21/20 07:24 Pitocin IV 4 milliunit/min .Q24H ROLANDA 4 mls/hr Administration Protocol 4 MILLIUNIT/MIN Ropivacaine 200 mg in 100 mls @ 13 mls/hr 07/21/20 08:30 07/21/20 09:20 Naropin Premix EPIDURAL 13 mls/hr .Q7H42M ROLANDA Administration Ondansetron HCl 4 mg 07/20/20 22:13 07/20/20 23:08 Zofran IVP 4 mg Q4H PRN Administration NAUSEA AND VOMITI NG PFSH Anesthesia PFSH: Medical History (Updated 05/25/20 @ 00:00 by ) Endometriosis determined by laparoscopy (~2013) History of PID (~2017) Surgical History H/O laparoscopy 2013--ov cyst removal; caut of endometriosis 2014-- cautery of endometriosis History of appendectomy (~2017) laparosopic History of cholecystectomy (~2011) Laparoscopic Family History Mother Hyperlipidemia Hypertension Family history of thyroid problem Denies family history of Diabetes Cancer Stroke Social History Smoking and tobacco status: never smoked Alcohol intake: former Former alcohol use details: Social before Female Reproductive History: : 5 Data Anesthesia CBC & Chem 7: 07/20/20 22:47 Other Labs: Laboratory Results - last 48 hr 07/20/20 22:47 WBC 11.5 H RBC 3.78 L Hgb 10.7 L Hct 33.8 L MCV 89.4 MCH 28.3 MCHC 31.7 RDW 12.5 Plt Count 214 MPV 10.2 Neut % (Auto) 72.5 Lymph % (Auto) 16.8 [place] % (Auto) 8.9 Eos % (Auto) 1.1 Baso % (Auto) 0.3 Neut # (Auto) 8.31 H Lymph # (Auto) 1.9 [place] # (Auto) 1.0 H Eos # (Auto) 0.1 Baso # (Auto) 0.0 Nucleated RBC % (auto) 0 Nucleated RBCs # 0.0 Cardiac Studies: No Data to Display
--- NOTE | 2020-07-21 09:44 | ANES.PROC ---
Anesthesia Procedures Procedure/Date: 07/21/20 Epidural: Time Out Performed: Yes Consents Signed: Procedure Consent Consent: requested by attending/covering physician, risks and benefits reviewed and patient agrees to proceed Lumbar Level: L3-L4 Epidural position: sitting Epidural procedure: sterile prep of area, 1% lidocaine to numb the area, negative for paresthesia passed, neg for paresthesia, test dose given, 1.5% xylocaine 1:200k epi, no systemic response and 0.2% Ropiavacaine @ mls/hr Additional Comments: Epidural placed with ease at L4/5 but blood noted to return on aspiration of epidural catheter. Catheter was placed without difficulty at L3/4. No paresthesia or complication. Pt required repeated local anesthetic injections to remain comfortable during procedure. Of note is that her previous epidural produced one sided reaction which persisted for 24 hours.
--- NOTE | 2020-07-21 10:20 | P.HP_ITS ---
Providers/Chief Complaint Admitting Physician: Adonay Pennington MD Primary Care Provider: KARELY Sandoval Chief Complaint: contractions History of Present Illness Sangeeta Daniel is a 29 year old at 38.4 weeks gestation by 7-week ultrasound inconsistent with LMP. Her is complicated by history of kidney stones, history of hyperthyroidism, syncopal episode x2 at 19 weeks gestation, anemia, migraine on amitriptyline, GBS positive, elevated 1 hour GTT with normal 3-hour GTT. The patient began having contractions on 07/20/2020. These gradually increased and got to the point where she was having more strong contractions starting around 5:30 PM. They continued, so she presented to labor delivery triage for further evaluation. Upon admission she was 1 cm dilated, and changed to 2 cm dilation in 1 hour. For this reason she was admitted for spontaneous labor. The patient denies any chest pains, cough, shortness of breath, fever, nausea, vomiting, diarrhea, constipation, dysuria, leakage of fluid, vaginal bleeding. She had a negative screening COVID test on 07/10/2020. The test was done then because she typically delivers between 37 and 38 weeks gestation with spontaneous labor. The patient was scheduled for induction of labor on 07/24/2020 and had another COVID swab pending from 07/19/2020 since the other would have been too old to be valid. Medications/Allergies Home Medications Medication Instructions Recorded Confirmed Last Taken Type amitriptyline 10 mg PO DAILY #30 tab 05/17/20 07/20/20 07/19/20 21:00 Rx ferrous sulfate 325 mg (65 mg 325 mg PO DAILY 05/17/20 07/20/20 07/19/20 21:00 History iron) tablet,delayed release Allergies Allergy/AdvReac Type Severity Reaction Status Date / Time latex Allergy ALGY-Rash Verified 05/17/20 14:01 metoclopramide [From Reglan] AdvReac ADR-Anxiety Verified 05/17/20 14:01 PFSH Acute PFSH: Medical History (Updated 07/21/20 @ 10:29 by Adonay Pennington MD) Endometriosis determined by laparoscopy (~2013) History of PID (~2017) Migraine Surgical History H/O laparoscopy 2013--ov cyst removal; caut of endometriosis 2014-- cautery of endometriosis History of appendectomy (~2017) laparosopic History of cholecystectomy (~2011) Laparoscopic Family History Mother Hyperlipidemia Hypertension Family history of thyroid problem Denies family history of Diabetes Cancer Stroke Social History Smoking and tobacco status: never smoked Alcohol intake: former Former alcohol use details: Social before Female Reproductive History: : 5 Vitals/I&O/Wt Last Vital Signs Temp 98.2 F 07/21/20 06:30 Pulse 77 07/21/20 10:19 Resp 18 07/21/20 06:30 BP 96/57 07/21/20 10:19 Pulse Ox 98 07/21/20 09:16 07/20/20 07/21/20 07/21/20 22:59 06:59 14:59 Intake Total 50 / 50 1999 Balance 50 / 50 1999 Weight last 48 hrs Weight 155 lb Weight 155 lb Physical Exam Narrative: EXAM NARRATIVE: General: Alert and oriented x3 Eyes: Pupils equal round and reactive to light and accommodation Mouth: Mucous membranes moist, pharynx non-erythematous Cardiac: Regular rate and rhythm without murmurs Lungs: Clear to auscultation bilaterally without wheezes, crackles or rhonchi Abdomen: Soft, non-tender, fundus is small for gestational age Extremities: +1 pitting edema in the bilateral lower extremities Data : 07/20/20 22:47 A&P Assessment and plan (1) Intrauterine : Status: Acute (2) Positive GBS test: Status: Acute (3) Spontaneous onset of labor: Status: Acute Additional A&P Information Sangeeta Daniel is a 29 year old at 38.4 weeks gestation by 7-week ultrasound inconsistent with LMP. Her is complicated by history of kidney stones, history of hyperthyroidism, syncopal episode x2 at 19 weeks gestation, anemia, migraine on amitriptyline, GBS positive, elevated 1 hour GTT with normal 3-hour GTT. The patient was admitted with spontaneous labor overnight. She is changed from 1 cm upon admission to 4 cm this morning. The patient is currently 4 to 5 cm dilation. She is on IV Pitocin for augmentation of labor at this time. She currently has bulging bag of fluid. heart tones are category 1 with good accelerations and moderate variability. Contractions are every 3 to 5 minutes. We will continue with routine intrapartum management. All questions were answered. Attestations Medical Necessity Statement*: The patient will be here for greater than 2 midnights due to routine intrapartum and management of labor and delivery. Coding Level of Care Code Acute Community Outreach Manager for Chg Fwd Diagnoses Intrauterine Z34.90 Positive GBS test B95.1 Spontaneous onset of labor
[2020-07-21] MEDS: hyDROXYzine 25 mg Capsule 50 MG PO (10:35)
[2020-07-21] MEDS: ampicillin 1,000 MG in sodium chloride 0.9% (plus) 50 ML 50 MG IV (10:35)
--- NOTE | 2020-07-21 11:50 | P.PCNOB_ITS ---
Delivery Note: Date of delivery: July 21, 2020 Pre-delivery diagnoses: 1. Intrauterine at 38.4 weeks gestation 2. Syncopal episode x2 at 19 weeks 3. Migraine headache on amitriptyline 4. Anemia 5. GBS positive 6. Elevated 1 hour GTT with normal 3-hour GTT Post-delivery diagnoses: 1. Intrauterine status post spontaneous vaginal delivery at 38.4 weeks gestation 2. Syncopal episode x2 at 19 weeks 3. Migraine headache on amitriptyline 4. Anemia 5. GBS positive 6. Elevated 1 hour GTT with normal 3-hour GTT 7. Delivery of healthy infant female weighing 6 pounds 11 ounces with Apgars of 8 and 8 Procedure: Spontaneous vaginal delivery Op report anesthesia: Epidural Delivering Physician: Adonay Pennington MD Estimated blood loss (mL): 125 Findings: Sangeeta Daniel is a 29 year old G5 now P4 status post spontaneous vaginal delivery at 38.4 weeks gestation by 7-week ultrasound inconsistent with LMP. Her was complicated by history of kidney stones, history of hyperthyroidism, syncopal episode x2 at 19 weeks gestation, anemia, migraine on amitriptyline, GBS positive, elevated 1 hour GTT with normal 3-hour GTT. Pre-Delivery Course: The patient presented to labor and delivery with spontaneous contractions that started on the evening of 07/20/2020. She made steady change on her own to approximately 4 cm by the morning of 07/21/2020. The patient was placed on IV Pitocin to augment labor and was given a laboring epidural. The patient's heart tones remained with a category 1 tracing throughout the process. The patient had SROM at approximately 1104 on 07/21/2020. Clear fluid was noted. She was complete at the same time. Delivery: The patient began pushing at 11:12 AM on 07/21/2020. The patient pushed well and the delivered in the OA position at 11:23 AM on 07/21/2020. The left shoulder was the anterior shoulder and it delivered with ease. Rest of the delivered without complication. The 's mouth and nose were bulb suctioned by myself and the was crying immediately after delivery. The infant was placed on the mother's chest where the nurses were waiting to care for her. The cord was clamped by myself after approximately 1 minute and cut by the infant's father. The cord blood was obtained. The cord was then drained of blood and traction was placed on the umbilical cord. Uterine massage was done and the placenta delivered without complication at 11:27 AM on 07/21/2020. The placenta was noted to be intact with a central umbilical cord insertion site. The uterus was massaged and there was little bleeding. The cervix was inspected and no lacerations were noted. The vaginal wall was inspected and there was a mild abrasion in the perineal region. This did not need suturing. Currently both the mother and are doing well. A&P Assessment and plan (1) Intrauterine : Status: Acute (2) Positive GBS test: Status: Acute (3) Spontaneous onset of labor: Status: Acute Coding Level of Care Code Acute [place] Worker for g Fwd Diagnoses Intrauterine Z34.90 Positive GBS test B95.1 Spontaneous onset of labor
[2020-07-21] MEDS: benzocaine-menthol 78 gm Canister 1 SPRAY TOPICAL (14:48)
[2020-07-21] MEDS: ibuprofen 800 mg tablet PO ×2 (14:48→20:30)
[2020-07-21] MEDS: lanolin oint 7 gm 1 APPLIC TOPICAL (14:49)
[2020-07-21] MEDS: acetaminophen 325 mg Tablet 650 MG PO (16:08)
[2020-07-21] MEDS: HYDROcodone-acetaminophen 5-325 mg Tablet PO ×2 (17:29→20:30)
[2020-07-21] MEDS: docusate sodium 100 mg Capsule PO (17:29)
[2020-07-21 23:23] LABS: Hematocrit 28.5 % (37.0-47.0); Hemoglobin 9.1 g/dL (11.5-15.3); Mean Corpuscular HGB Conc 31.9 g/dL (30.0-36.0); Mean Corpuscular Hemoglobin 28.8 pg (28.0-34.0); Mean Corpuscular Volume 90.2 fL (81-99); Mean Platelet Volume 10.1 fL (7.4-10.4); Platelet Count 168 10^3/cmm (130-400); Red Blood Count 3.16 10^6/uL (4.1-5.3); Red Cell Distribution Width 12.6 % (12.1-15.1); White Blood Count 11.5 10^3/uL (4.0-10.0)
[2020-07-22 01:30] VITALS: BP 109/72; PULSE 79; RESP 16; O2SAT 97
[2020-07-22] MEDS: HYDROcodone-acetaminophen 5-325 mg Tablet PO (01:53)
[2020-07-22 04:30] VITALS: BP 111/70; PULSE 78; RESP 16; O2SAT 98
--- NOTE | 2020-07-22 07:50 | PM.DCS ---
Discharge Providers Date of Admission: 07/20/20 22:20 Date of Discharge: July 22, 2020 Attending Provider at Admission: Adonay Pennington MD Attending Provider at Discharge: Adonay Pennington MD Primary Care Provider: KARELY Sandoval Diagnoses at Discharge Discharge Diagnosis (1) Intrauterine : Status: Acute (2) Positive GBS test: Status: Acute (3) Spontaneous onset of labor: Status: Acute Other Information Additional DC diagnoses/information: 1. Intrauterine status post spontaneous vaginal delivery at 38.4 weeks gestation 2. Syncopal episode x2 at 19 weeks 3. Migraine headache on amitriptyline 4. Anemia 5. GBS positive 6. Elevated 1 hour GTT with normal 3-hour GTT 7. Delivery of healthy infant female weighing 6 pounds 11 ounces with Apgars of 8 and 8 Reason for Visit Reason for Visit: contractions Hospital Course Hospital Course: Pre-Delivery Course: The patient presented to labor and delivery with spontaneous contractions that started on the evening of 07/20/2020. She made steady change on her own to approximately 4 cm by the morning of 07/21/2020. The patient was placed on IV Pitocin to augment labor and was given a laboring epidural. The patient's heart tones remained with a category 1 tracing throughout the process. The patient had SROM at approximately 1104 on 07/21/2020. Clear fluid was noted. She was complete at the same time. Delivery: The patient began pushing at 11:12 AM on 07/21/2020. The patient pushed well and the infant delivered in the OA position at 11:23 AM on 07/21/2020. The left shoulder was the anterior shoulder and it delivered with ease. Rest of the delivered without complication. The 's mouth and nose were bulb suctioned by myself and the was crying immediately after delivery. The was placed on the mother's chest where the nurses were waiting to care for her. The cord was clamped by myself after approximately 1 minute and cut by the infant's father. The cord blood was obtained. The cord was then drained of blood and traction was placed on the umbilical cord. Uterine massage was done and the placenta delivered without complication at 11:27 AM on 07/21/2020. The placenta was noted to be intact with a central umbilical cord insertion site. The uterus was massaged and there was little bleeding. The cervix was inspected and no lacerations were noted. The vaginal wall was inspected and there was a mild abrasion in the perineal region. This did not need suturing. : The patient has done very well without any complications. Her bleeding is well controlled. Her pain is well controlled other than some mild to moderate pain in the back at the site of the epidural. She is ambulating, voiding, tolerating food and passing gas. Her bleeding has been very little. Overall the patient is doing well and can be discharged home later today at 24 hours post-delivery. Routine instructions were discussed. All questions were answered. Physical Exam Narrative: EXAM NARRATIVE: General: Alert and oriented x3 Cardiac: Regular rate and rhythm without murmurs Lungs: Clear to auscultation bilaterally without wheezes, crackles or rhonchi Abdomen: Soft, nontender, uterus is firm and 3 cm below the umbilicus. Extremities: +1 pitting edema in the bilateral lower extremities Back: Tenderness over the site of the epidural. Urinary Catheter Management^: Mancia Latex Free: Cath Placed During This Visit: yes, but has since been removed by the nurse Reason for Continuing Indwelling Catheter: Decision to DC Catheter Urinary Catheter Date of Insertion: 07/21/20 Urinary Catheter Time of Insertion: 09:50 Date Urinary Catheter Removed: 07/21/20 Time Urinary Catheter Discontinued: 10:15 Discharge Data Data Completed and Pending: Labs from last 24 hours 07/21/20 22:25 WBC 11.5 H RBC 3.16 L Hgb 9.1 L Hct 28.5 L MCV 90.2 MCH 28.8 MCHC 31.9 RDW 12.6 Plt Count 168 MPV 10.1 Vitals: Last Vital Signs Temp 98.2 F 07/21/20 21:30 Pulse 78 07/22/20 04:30 Resp 16 07/22/20 04:30 BP 111/70 07/22/20 04:30 Pulse Ox 98 07/22/20 04:30 Discharge Plan Discharge Patient Disposition: Home Condition: Good Prescriptions: New ibuprofen 800 mg Tablet 800 mg PO TID Qty: 60 RF: 0 Continued amitriptyline 10 mg tablet 10 mg PO DAILY Qty: 30 RF: 0 Changed ferrous sulfate 325 mg (65 mg iron) tablet,delayed release (DR/EC) 325 mg PO BID Qty: 60 RF: 0 Discharge Orders: Discharge Order (Routine); Ordered 07/22/20 Ordered By: Adonay Pennington Referrals: Adonay Pennington MD [Physician] - 6 Weeks Discharge Diet: Regular Discharge Activity: Increase activity as tolerated Activity Restrictions/Additional Instructions: Nothing per vagina for 6 weeks. If you have any concerns prior to your follow-up appointment, please call for sooner appointment. Discharge Attestations Time Spent in Discharge Care*: greater than 30 min Quality Metrics Clinical Quality Measures During this hospital stay, did patient experience: None Coding Level of Care Code Acute Right Of [employer] for [employer]g Fwd Diagnoses Intrauterine Z34.90 Positive GBS test B95.1 Spontaneous onset of labor
[2020-07-22] MEDS: docusate sodium 100 mg Capsule PO (09:36)
[2020-07-22] MEDS: ibuprofen 800 mg tablet PO (09:36)
[2020-07-22] MEDS: prenatal vitamin Capsule 1 CAP PO (09:36)
[2020-07-22 10:44] VITALS: BP 112/74; PULSE 82; RESP 16; TEMP 36.8
[2020-07-22 14:42] VITALS: BP 113/79; PULSE 87; RESP 16
[2020-07-22 14:52] VITALS: BP 113/79; PULSE 87; RESP 16
== END 2020-07-22 14:55 | disposition home or self-care (01) | DRG 807 ==
LOC: OBGYN 22:27 → OPOB 22:27 → OBGYN 22:27
PROVIDERS: Admitting Provider Family Medicine; PCP Registered Nurse; Visit Provider Family Medicine
DX: O42.02 Full-term premature rupture of membranes, onset of labor within 24 hours of rupture (principal); Z37.0 Single live birth; O99.824 Streptococcus B carrier state complicating childbirth; Z3A.38 38 weeks gestation of pregnancy; O99.02 Anemia complicating childbirth; D64.9 Anemia, unspecified
CPT/HCPCS: 12345; 36415; 51702; 59025; 59409; 85025; 85027; 96375; 99211; J0290; J2405; J2795

== ENCOUNTER → 2020-08-29 12:20 | Outpatient (BNVA) | payer OTHER, MEDICAID, SELFPAY | PROVIDERS: PCP Registered Nurse; Visit Provider Obstetrics & Gynecology | DX: Z20.828 Contact with and (suspected) exposure to other viral communicable diseases (principal); Z01.812 Encounter for preprocedural laboratory examination | CPT/HCPCS: 87635 ==

== ENCOUNTER 2020-09-03 05:45 | Day surgery (SDC) | payer OTHER, MEDICAID, SELFPAY ==
--- NOTE | 2020-08-30 12:21 | ANES.PREANE2 ---
Pre-Anesthetic Assessment Pre-Anesthetic Assessment: Height/Weight: Height 1.6 m Weight 59.874 kg Preop Diagnosis: IUP Proposed Procedure: Operation Date: 09/03/20 07:00 Proposed Procedures p Laparoscopic Tubal Fulguration 71406 z30.09(Bilateral) - Thierry Rich MD s Salpingectomy(Not Applicable) - Thierry Rich MD Social: Social History: No alcohol and No tobacco Exam: Pre-Anes Outpt Exam: alert, oriented x 3, clear to auscultation bilaterally and regular rate & rhythm Airway: Submandibular: WNL Cervical ROM: WNL History/ROS: No significant history except as noted and No significant complaints Pulmonary: Pulmonary: None reported CV/HEM: CV/HEM: None reported : : None reported Hepatic: Hepatic: None reported GI: GI: None reported Metabolic: Metabolic: None reported Musc/skel: Musc/skel: None reported Neuropsych: Neuropsych: None reported Anesthetic Plan: ASA status: 1 Anesthesia: Anesthesia Evaluation and General Risk of > 500 ml blood loss (7ml/kg in children): No PFSH Anesthesia PFSH: Medical History Endometriosis determined by laparoscopy (~2013) History of PID (~2017) Migraine Surgical History H/O laparoscopy 2013--ov cyst removal; caut of endometriosis 2014-- cautery of endometriosis History of appendectomy (~2017) laparosopic History of cholecystectomy (~2011) Laparoscopic Family History Mother Hyperlipidemia Hypertension Family history of thyroid problem Denies family history of Diabetes Cancer Stroke Social History (Updated 08/29/20 @ 10:00 by Peng Gridley) Smoking and tobacco status: never smoked Alcohol intake: former Former alcohol use details: Social before Data Anesthesia Cardiac Studies: No Data to Display
[2020-09-03] VITALS (9 sets, daily range): BP systolic 120–139; BP diastolic 68–97; PULSE 49–78; RESP 18–25; TEMP 36.1–37.1; O2SAT 98–100
[2020-09-03 06:12] LABS: OR HCG Qualitative Urine Negative (Negative)
[2020-09-03] MEDS: sodium chloride 0.9% 1,000 ML 30 ML IV (06:32)
[2020-09-03] MEDS: ketorolac 30 mg/mL INJ IVP (06:33)
[2020-09-03] MEDS: gabapentin 300 mg Capsule PO (06:33)
--- NOTE | 2020-09-03 06:38 | P.ANESUD_ITS ---
Pre-Anesthetic Update Pre-Anesthetic Assessment: Date of Surgery/Procedure: 09/03/20 Preop Dawna gnosis: Undesired fertility Proposed Procedure: Operation Date: 09/03/20 07:00 Proposed Procedures p Laparoscopic Tubal Fulguration 10179 z30.09(Bilateral) - Thierry Rich MD s Salpingectomy(Not Applicable) - Thierry Rich MD Any changes to Pre-Anesthetic Assessment?: No Last Intake: Intake Last Liquid Date 09/02/20 Last Liquid Time 18:00 Last Solid Date 09/02/20 Last Solid Time 18:00 Labs Last 48hrs: Laboratory Results - last 48 hr 09/03/20 06:02 Urine HCG, Qual Negative Vitals: Temperature 97 F L 09/03/20 06:16 Temperature Source Temporal Artery S can 09/03/20 06:16 Pulse Rate 73 09/03/20 06:16 Pulse Rhythm 09/03/20 06:13 Pulse Strength 3+ Normal 09/03/20 06:13 Respiratory Rate 18 09/03/20 06:16 Blood Pressure 134/94 09/03/20 06:16 Blood Pressure Jing n 107 09/03/20 06:16 Pulse Oximetry 98 09/03/20 06:16 Oxygen Delivery Me thod 09/03/20 06:16 Exam: Pre-Anes Outpt Exam: alert, oriented x 3, clear to auscultation bilaterally and regular rate & rhythm Cardiac Studies: No Data to Display
--- NOTE | 2020-09-03 06:44 | P.HPUD_ITS ---
Surgery/Procedure H&P Update DATE OF PROCEDURE: September 03, 2020 DATE H&P PERFORMED: 08/29/20 H&P UPDATE INFORMATION: I have reviewed H&P completed within last 30 days, I have examined patient prior to procedure, No changes to prior documentation and H&P is in [facility] EMR on date indicated PREOP DIAGNOSIS: Undesired fertility PLANNED PROCEDURE: Operation Date: 09/03/20 07:00 Proposed Procedures p Laparoscopic Tubal Fulguration 82315 z30.09(Bilateral) - Thierry Rich MD s Salpingectomy(Not Applicable) - Thierry Rich MD
--- NOTE | 2020-09-03 07:54 | PM.OP ---
Operative Report Date of procedure: September 03, 2020 Pre-op Diagnosis: Undesired fertility Post-op Diagnosis: Undesired fertility, Pelvic endometriosis Procedure Done: Laparoscopic bilateral tubal fulguration with complete salpingectomy, Cauterization of pelvic peritoneal endometriosis Specimens removed/disposition: Right and left fallopian tubes Surgeon: Thierry Rich Affirmative Action Specialist: None Anesthesia: General Estimated blood loss (mL): 2 IV fluids (mL): 300 Urine output (mL): 20 Complications: None Findings: First to second-degree uterine prolapse under anesthesia. Normal-appearing uterus, tubes, and ovaries. A small right ovarian fibroma noted. Within the posterior cul-de-sac were 3 areas of powder burn lesion with clear areas surrounding it. Consistent with endometriosis. No other areas of endometriosis noted. Brief History: Patient is a 29-year-old female 5, para 4-0-1-4 who is approximately 6 weeks from a vaginal delivery. She had decided during the that she did not want any further children and was wanting to proceed with sterilization. Medicaid consent form has been signed on 05/17/2020. She is presenting for laparoscopic sterilization with complete removal of tubes at this time. I have reviewed with her that this is considered a permanent and not reversible method. Failure rates and risk for ectopic were reviewed. Questions were answered. She still wished to proceed with the surgery. Procedure: Patient was taken to the operating room were general anesthesia was obtained. She was prepped and draped in the usual sterile fashion in the dorsal supine position with legs in Brock style stirrups. Sequential compression boots were placed prior to starting the case. Catheter was inserted and bladder was drained. Exam under anesthesia was performed and patient was found to have first to second-degree uterine prolapse. Weighted speculum was placed in the vagina and the cervix was grasped with a single-tooth tenaculum. A ZUMI was placed. The infraumbilical region was injected with 2% lidocaine with epinephrine. Skin incision was made with the knife in the lower edge of the navel and a size 5 trocar and sheath were inserted under direct visualization using an Optiview type technique. Trocar was removed and replaced with a laparoscope confirming intra-abdominal placement. The abdomen was inflated with carbon dioxide. The anterior abdominal wall was inspected and noted to be free of adhesions. In the left and right lower quadrants lateral to the inferior epigastric vessels, the skin was injected with 2% lidocaine with epinephrine. Skin incisions were made with a knife and a 5 mm trocar and sheath were inserted under direct visualization at each site. The pelvis was thoroughly inspected and she was noted to have powder burn and clear lesions within the posterior cul-de-sac, consistent with endometriosis. No other areas of endometriosis noted. The uterus, tubes, and ovaries were normal in appearance. She did have a small right ovarian fibroma noted.. Using the Voyant sealing device, starting on the right side at the fimbriated end of the tube, the mesosalpinx was sealed and cut along the length of the tube. At the proximal end of the tube, the tube itself was sealed and cut. The fallopian tube was brought out through the port. Using the Voyant sealing device, starting on the left side at the fimbriated end of the tube, the mesosalpinx was sealed and cut along the length of the tube. At the proximal end of the tube, the tube itself was sealed and cut. The fallopian tube was brought out through the port. The dissection area was thoroughly inspected and noted to be hemostatic. The abdomen was deflated and the ports removed. The 5 mm sites were closed with single stitches of 4-0 Vicryl suture. Skin glue was applied. The ZUMI was removed and there was minimal bleeding from the tenaculum site. Patient tolerated the procedure well. Sponge, needle and instrument counts were correct. DRAINS: None POSTOPERATIVE STATUS: The patient was transferred to the recovery room in satisfactory condition. DISPOSITION: Discharge to home when criteria was met. FOLLOWUP APPOINTMENT: Followup appointment is scheduled in my office on 09/20/2020. MEDICATIONS: Patient received prescriptions for: [place] 5/325 mg, 1 to 2 tablets every 6 hours as needed for pain, #20, 0 refills Ibuprofen 800 mg, 1 tablet 3 times a day as needed for pain, #30, 0 refills
[2020-09-03] MEDS: fentaNYL 50 mcg/mL INJ 2mL IVP (08:04)
[2020-09-03] MEDS: HYDROcodone-acetaminophen 5-325 mg Tablet 1 TAB PO (08:46)
--- NOTE | 2020-09-03 14:26 | ANE.PACU2 ---
Inpatient post-anesthesia follow up: Airway intact: Yes Vital signs: Temperature 97.4 F Pulse Rate 66 Respiratory Rate 18 Blood Pressure 125/86 Pulse Oximetry 98 Oxygen Delivery Me thod Room Air Oxygen Flow Rate 8 Fraction of Inspir ed Oxygen Hydration adequate: Yes Nausea and vomiting: No Pain level: 3 Mental status: Baseline
== END 2020-09-03 09:07 | disposition home or self-care (01) ==
PROVIDERS: PCP Registered Nurse; Visit Provider Obstetrics & Gynecology
PROC: (CPT 58999; 2020-09-03 07:00)
PROC: (CPT 58661; 2020-09-03 07:00)
DX: Z30.2 Encounter for sterilization (principal); N80.3 Endometriosis of pelvic peritoneum
CPT/HCPCS: 58670; 12345; 81025; 84703; 88302; 96374; J0131; J1885; J2710; J3010; J3490; J7030

== ENCOUNTER → 2020-09-07 14:48 | Outpatient (BNVA) | payer OTHER, MEDICAID, SELFPAY | PROVIDERS: PCP Registered Nurse; Visit Provider Nurse Practitioner | DX: S92.912A Unspecified fracture of left toe(s), initial encounter for closed fracture (principal); X58.XXXA Exposure to other specified factors, initial encounter | CPT/HCPCS: 73630 ==

== ENCOUNTER → 2020-10-21 10:33 | Outpatient (BNVA) | payer OTHER, MEDICAID, SELFPAY | PROVIDERS: PCP Registered Nurse | DX: Z20.828 Contact with and (suspected) exposure to other viral communicable diseases (principal) | CPT/HCPCS: 87635 ==

== ENCOUNTER 2020-12-24 11:34 | Emergency (ER) | payer OTHER, SELFPAY ==
--- NOTE | 2020-12-24 11:46 | XRR_ITS ---
PROCEDURE INFORMATION: Exam: XR Abdomen Exam date and time: 12/24/2020 11:47 AM Age: 30 years old Clinical indication: Abdominal pain; Additional info: Abd pain, ? kidney stone TECHNIQUE: Imaging protocol: XR of the abdomen. Views: Frontal supine view of the abdomen. 1 View. COMPARISON: ES surgery / GI images 09/03/2020 7:20 AM FINDINGS: Gastrointestinal tract: bowel gas pattern is nonspecific. Air filled large bowel including distal rectal gas. Moderate amount stool throughout the large bowel. Intraperitoneal space: Limited exam as much of the pelvis is not included on the radiograph. Organs: Surgical clips are present in the region of the gallbladder fossa. No clearly visualized renal calculus. Bowel gas and stool limits this exam. Bones/joints: Unremarkable. XR/XR KUB [id number] IMPRESSION: Limited exam. Pelvis not included. 1. Bowel gas pattern is nonspecific. Air filled large bowel including distal rectal gas. 2. Moderate amount stool throughout the large bowel. 3. No clearly visualized renal calculus. Bowel gas and stool limits this exam.
[2020-12-24 12:06] VITALS: BP 132/87; PULSE 79; RESP 18; TEMP 36.3; O2SAT 95; BMI 23.0
--- NOTE | 2020-12-24 13:19 | CT_ITS ---
WS: [id number] CT ABDOMEN AND PELVIS NONCONTRAST HISTORY: flank pain, RIGHT lower quadrant pain. TECHNIQUE: Imaging performed through the abdomen and pelvis. Coronal and sagittal reformats are submi tted. All CT scans at [facility] use at least one of these dose optimization techniques: automated exposure control; mA and/or kV adjustment per patient size (includes targeted exams where d ose is matched to clinical indication); or iterative reconstruction. DLP: 768.3 mGy.cm COMPARISON: None available. Lower thorax: Lung bases are clear. Visualized heart is normal. No hiatal hernia. Liver: Normal size liver. No mass or bile duct dilatation. Gallbladder: Prior cholecystectomy. Pancreas: Normal size and attenuation. Normal pancreatic duct. No pancreatitis or mass. Spleen: Normal. Adrenal glands: Normal. No mass. Right kidney: Normal size RIGHT kidney. There is very mild dilatation of the renal pelvis and the bi yces. No stones are identified. There is very mild dilatation of the proximal and mid RIGHT ureter. B ecause of the mild dilatation is not evident. Left kidney: Numerous nonobstructing calcifications in the LEFT kidney. The largest in the lower pole measures 9 mm. No hydronephrosis or hydroureter. Aorta: Normal abdominal aorta, no aneurysm or atherosclerosis. No free fluid, intraperitoneal air or significant lymphadenopathy. GI tract: The appendix is been surgically removed. Diffuse moderate fecal retention with no obstructi on. No acute inflammatory process. Abdominal wall: Negative. No hernia. Pelvis: Small amount of free fluid in the pelvis. Uterus is mildly enlarged measuring approximately 1 0 cm in length. RIGHT ovarian cyst measures 2.5 x 2.3 cm. Smaller follicles in the LEFT ovary. Normal ly distended urinary bladder. Osseous structures: Unremarkable. CT/CT kidney stone [id number] IMPRESSION: 1. Prior appendectomy. 2. Very mild dilatation of the RIGHT renal pelvis and ureter. No obstructing c alcification identified. Cause of the mild hydronephrosis and hydroureter is no t evident. Possible etiologies to consider are nonradiopaque ureteral calcifica tion, transient dilatation of the pelvis or obstructing neoplasm/stricture of t he distal ureter. Consider follow-up ultrasound of the kidneys in 1-2 weeks if symptoms persist. 3. Nonobstructing calcifications LEFT kidney. 4. Prior cholecystectomy. 5. Diffuse constipation. 6. Mild uterine enlargement and RIGHT ovarian cyst.
--- NOTE | 2020-12-24 13:20 | ED_ITS ---
HPI - General Adult General: Chief complaint: General Medical Stated complaint: AB PAIN, SUSPECTS KIDNEY STONE Time Seen by Provider: 12/24/20 12:47 History of Present Illness: HPI narrative: 30-year-old female presents with right-sided flank pain. She thought she had passed a kidney stone at home 2 days ago and then began having more symptoms again. She did have a little bit of hematuria late last week. This is been going on for about the last 4 days no w. She has previously had a cholecystectomy and an appendectomy. She is also had a tubal ligation. She denies any fever sweats or chills no shortness of breath. She has had some nausea and vomiting. Mild dysuria no fever. Onset (ago): day(s) (4) Location: back, abdomen and right Severity: moderate Quality: stabbing Relieving factors: none Exacerbating factors: none Associated symptoms: Reports decreased appetite, nausea and vomiting; Deny chest pain, confusion, cough, diaphoresis, dyspnea, fevers/chills, headache(s), malaise, rash, palpitations, seizures, short of breath, syncope or weakness Treatments prior to arrival: none Review of Systems Const: Denies: malaise or diaphoresis ENMT: Denies: throat pain, ear or mastoid pain, nasal discharge or nasal conge stion Card: Denies: chest pain, palpitations or syncope Resp: Denies: dyspnea GI: Reports: nausea and vomiting : Denies: flank pain, difficulty voiding, dysuria, urinary frequency or urinary urgency Skin/Breast: Denies: rash Neuro: Denies: headache(s) or confusion PFS ED PFSH: Medical History Endometriosis determined by laparoscopy (~2013) Initially diagnosed with endometriosis in 2013 by laparoscopy. 09/03/2020: Laparoscopy with cauterization of endometriosis History of PID (~2017) Migraine Surgical History H/O laparoscopy 2013--ov cyst removal; caut of endometriosis 2014-- cautery of endometriosis H/O tubal ligation (09/03/20) Laparoscopic bilateral complete salpingectomy, cauterization of pelvic peritoneal endometriosis. Performed by Dr. Rich at [facility] in [place], [place] History of appendectomy (~2017) laparosopic History of cholecystectomy (~2011) Laparoscopic Family History Mother Hyperlipidemia Hypertension Family history of thyroid problem Social History Smoking and tobacco status: never smoked Alcohol intake: former Former alcohol use details: Social before Physical Exam Const: COMMON NORMALS: no acute distress GENERAL APPEARANCE: cooperative and comfortable ORIENTATION/CONSCIOUSNESS: Yes awake, Yes oriented to person, Yes oriented to place and Yes oriented to time HENMT: COMMON NORMALS: normocephalic, atraumatic, hearing grossly normal bilaterally, external ears normal, EAC's normal, TM's normal bilaterally, Normal nasal mucous membranes and turbinates present, moist oral mucous membranes and oropharynx normal HEAD & SCALP: normocephalic and atraumatic NOSE: Normal nasal mucous membranes and turbinates present EXTERNAL EAR: Yes external ears normal EXTERNAL AUDITORY CANAL: EAC's normal TYMPANIC MEMBRANE: TM's normal bilaterally Eye: COMMON NORMALS: Equal, round and reactive pupils present, EOMs intact bilaterally, conjunctivae normal and no scleral icterus CONJUNCTIVA: Yes conjunctivae normal PUPIL: Yes Equal, round and reactive pupils present Neck/C-Spine: COMMON NORMALS: full ROM, no lymphadenopathy, supple and no JVD Lymph: LYMPHATIC: no lymphadenopathy noted and no lymphedema noted Resp: COMMON NORMALS: normal respiratory effort, No retractions, No use of accessory muscles and clear to auscultation bilaterally AUSCULTATION: clear to auscultation bilaterally Cardio: COMMON NORMALS: no JVD, regular rate, regular rhythm and No murmurs present (Cardio) RATE: regular rate RHYTHM: regular rhythm GI: COMMON NORMALS: Soft to palpation and No hepatosplenomegaly present AUSCULTATION: Yes normoactive bowel sounds PALPATION: Yes Soft to palpation, No Tenderness to palpation present (GI), No Guarding due to palpation present (GI) and Yes No hepatosplenomegaly present Extremity: COMMON NORMALS: normal to inspection, capillary refill normal, no clubbing, cyanosis or edema, no calf tenderness and no pedal edema Neuro: SENSORIUM/ORIENTATION: Yes oriented to person, Yes oriented to place and Yes oriented to time Skin: COMMON NORMALS: no rashes or lesions noted GENERAL SKIN EXAM: no rashes or lesions noted Course Vital Signs: Vital signs: Vital Signs Temperature 97.4 F L 12/24/20 12:06 Pulse Rate 78 12/24/20 14:52 Respiratory Rate 18 12/24/20 14:52 Blood Pressure 129/81 12/24/20 14:52 Pulse Oximetry 997 H 12/24/20 14:52 MDM - General Adult MDM Narrative: Medical decision making narrative: T shows right hydronephrosis but no infection urine does not show any sign infection white count is normal at this point equal discharge home with pain medications with renal colic we will get her set up to follow-up with Calvin will have her strain her urine she reports having an episode of that she sounds like she essentially passed a stone is also possible that is still showing some hydronephrosis from that. Lab Data: Labs: Lab Results 12/24/20 12/24/20 12/24/20 Range/Units 12:52 12:52 12:52 WBC 5.7 (4.0-10.0) 10^3/ uL RBC 4.07 L (4.1-5.3) 10^6/u L Hgb 12.6 (11.5-15.3) g/dL Hct 37.3 (37.0-47.0) % MCV 91.6 (81-99) fL MCH 31.0 (28.0-34.0) pg MCHC 33.8 (30.0-36.0) g/dL RDW 12.0 L (12.1-15.1) % Plt Count 186 (130-400) 10^3/c mm MPV 9.6 (7.4-10.4) fL Neut % (Auto) 58.4 % Lymph % (Auto) 28.8 % Hendry % (Auto) 9.3 % Eos % (Auto) 3.0 % Baso % (Auto) 0.5 % Neut # (Auto) 3.34 (1.8-7.7) 10^3/u L Lymph # (Auto) 1.7 (0.8-4.8) 10^3/u L Hendry # (Auto) 0.5 (0.2-0.9) 10^3/u L Eos # (Auto) 0.2 (0.0-0.8) 10^3/u L Baso # (Auto) 0.0 (0.0-0.1) 10^3/u L Nucleated RBC % (a uto) 0 % Nucleated RBCs # 0.0 /100WBC Sodium 134 L (136-145) mmol/L Potassium 3.3 L (3.5-5.1) mmol/L Chloride 102 (98-107) mmol/L Carbon Dioxide 24 (22-29) mmol/L Anion Gap 11.3 (5-19) BUN 8 (6-20) mg/dL Creatinine 0.7 (0.5-0.9) mg/dL GFR Calculation 98.3 (90-130) mL/min Glucose 75 (65-115) mg/dL Calculated Osmolal ity 275 L (285-295) mOsm/k g Calcium 8.7 (8.5-10.5) mg/dL Total Bilirubin 0.5 (0.15-1.2) mg/dL AST 13 (0-32) U/L ALT 9 (0-33) U/L Alkaline Phosphata se 46 (35-105) IU/L Total Protein 7.0 (6.6-8.7) g/dL Albumin 4.4 (3.5-5.2) g/dL Globulin 2.6 (1.3-4.6) g/dL HCG, Qual Negative (Negative) Urine Color (Yellow) Urine Appearance (CLEAR) Urine pH (5-7) Ur Specific Gravit y (1.005-1.030) Urine Protein (Negative) Urine Glucose (UA) (Normal) Urine Ketones (Negative) Urine Blood (Negative) Urine Nitrate (Negative) Urine Bilirubin (Negative) Urine Urobilinogen (Negative) mg/dL Ur Leukocyte Geovanna ase (Negative) Urine RBC (0-2) /hpf Urine WBC (0-5) /hpf Ur Squamous Epith Cells (0-5) /hpf Amorphous Sediment Urine Bacteria (NONE) /hpf 12/24/20 Range/Units 13:13 WBC (4.0-10.0) 10^3/ uL RBC (4.1-5.3) 10^6/u L Hgb (11.5-15.3) g/dL Hct (37.0-47.0) % MCV (81-99) fL MCH (28.0-34.0) pg MCHC (30.0-36.0) g/dL RDW (12.1-15.1) % Plt Count (130-400) 10^3/c mm MPV (7.4-10.4) fL Neut % (Auto) % Lymph % (Auto) % Hendry % (Auto) % Eos % (Auto) % Baso % (Auto) % Neut # (Auto) (1.8-7.7) 10^3/u L Lymph # (Auto) (0.8-4.8) 10^3/u L Hendry # (Auto) (0.2-0.9) 10^3/u L Eos # (Auto) (0.0-0.8) 10^3/u L Baso # (Auto) (0.0-0.1) 10^3/u L Nucleated RBC % (a uto) % Nucleated RBCs # /100WBC Sodium (136-145) mmol/L Potassium (3.5-5.1) mmol/L Chloride (98-107) mmol/L Carbon Dioxide (22-29) mmol/L Anion Gap (5-19) BUN (6-20) mg/dL Creatinine (0.5-0.9) mg/dL GFR Calculation (90-130) mL/min Glucose (65-115) mg/dL Calculated Osmolal ity (285-295) mOsm/k g Calcium (8.5-10.5) mg/dL Total Bilirubin (0.15-1.2) mg/dL AST (0-32) U/L ALT (0-33) U/L Alkaline Phosphata se (35-105) IU/L Total Protein (6.6-8.7) g/dL Albumin (3.5-5.2) g/dL Globulin (1.3-4.6) g/dL HCG, Qual (Negative) Urine Color Yellow (Yellow) Urine Appearance Clear (CLEAR) Urine pH 5 (5-7) Ur Specific Gravit y 1.015 (1.005-1.030) Urine Protein Neg (Negative) Urine Glucose (UA) Norm (Normal) Urine Ketones Negative (Negative) Urine Blood 2+ H (Negative) Urine Nitrate Negative (Negative) Urine Bilirubin Neg (Negative) Urine Urobilinogen Norm (Negative) mg/dL Ur Leukocyte Geovanna ase Negative (Negative) Urine RBC 0-4 H (0-2) /hpf Urine WBC 0-4 H (0-5) /hpf Ur Squamous Epith Cells 5-10 H (0-5) /hpf Amorphous Sediment Not Reportable Urine Bacteria Trace (NONE) /hpf Discharge Plan Discharge Patient Disposition: Home Clinical Impression: Hydronephrosis of right kidney, Renal colic Condition: Stable Prescriptions: New hydrocodone-acetaminophen 5-325 mg tablet 1 tab PO Q6H PRN (Reason: pain) Qty: 2 RF: 0 No Action amitriptyline 10 mg Tablet 10 mg PO BEDTIME RF: 0 Iron (ferrous sulfate) 325 mg (65 mg iron) Tablet 325 mg PO BEDTIME RF: 0 ibuprofen 800 mg tablet 800 mg PO TID PRN (Reason: pain) Qty: 30 RF: 0 Discharge Orders: Discharge ED (Routine); Ordered 12/24/20 Ordered By: Fernando Almeida Referrals: Adonay Pennington MD [Primary Care Provider] - Patient Instructions: Opioid Safety Activity Restrictions/Additional Instructions: Follow-up with Dr. Simpson later this week. Coding Level of Care Code ED Charger Operator for Zenaida Fwd Exam Comprehensive
[2020-12-24 13:29] LABS: Basophils % 0.5 %; Eosinophils # 0.2 10^3/uL (0.0-0.8); Hematocrit 37.3 % (37.0-47.0); Hemoglobin 12.6 g/dL (11.5-15.3); Lymphocytes # 1.7 10^3/uL (0.8-4.8); Lymphocytes % 28.8 %; Mean Corpuscular HGB Conc 33.8 g/dL (30.0-36.0); Mean Corpuscular Volume 91.6 fL (81-99); Mean Platelet Volume 9.6 fL (7.4-10.4); Monocytes # 0.5 10^3/uL (0.2-0.9); Monocytes % 9.3 %; Neutrophils # 3.34 10^3/uL (1.8-7.7); Neutrophils % 58.4 %; Nucleated Red Blood Cells % 0 %; Platelet Count 186 10^3/cmm (130-400); Red Blood Count 4.07 10^6/uL (4.1-5.3); White Blood Count 5.7 10^3/uL (4.0-10.0)
[2020-12-24 13:36] LABS: Alanine Aminotransferase 9 U/L (0-33); Albumin Level 4.4 g/dL (3.5-5.2); Alkaline Phosphatase 46 IU/L (35-105); Anion Gap 11.3 (5-19); Aspartate Amino Transferase 13 U/L (0-32); Blood Urea Nitrogen 8 mg/dL (6-20); Calcium 8.7 mg/dL (8.5-10.5); Carbon Dioxide 24 mmol/L (22-29); Chloride 102 mmol/L (98-107); Creatinine Clr Calc Pharmacy 102.0834; Globulin 2.6 g/dL (1.3-4.6); Glomerular Filtration Rate 98.3 mL/min (90-130); Glucose 75 mg/dL (65-115); Osmolality Calculated 275 mOsm/kg (285-295); Potassium 3.3 mmol/L (3.5-5.1); Sodium 134 mmol/L (136-145); Total Bilirubin 0.5 mg/dL (0.15-1.2)
[2020-12-24 13:38] LABS: Add Urine Microscopic? YES; Bilirubin Urine Neg (Negative); Blood Urine 2+ (Negative); Glucose Urine UA Norm (Normal); Ketones Urine Negative (Negative); Leukocyte Esterase Urine Negative (Negative); Nitrate Urine Negative (Negative); Protein Urine Neg (Negative); Specific Gravity, Urine 1.015 (1.005-1.030); Urine Appearance Clear (CLEAR); Urine Color Yellow (Yellow); Urobilinogen Urine Norm (Negative); pH Urine 5 (5-7)
[2020-12-24 13:41] LABS: HCG, Serum Qual Negative (Negative)
[2020-12-24 13:51] LABS: Add Urine Culture? No; Bacteria Urine TRACE /hpf; RBC Urine 0-4 /hpf (0-2); WBC Urine 0-4 /hpf (0-5)
[2020-12-24 14:48] VITALS: RESP 18
[2020-12-24] MEDS: morphine 4 mg/mL SDV 1 mL IVP (14:48)
[2020-12-24] MEDS: ondansetron 2 mg/ML SDV 2 mL 4 MG IVP (14:48)
[2020-12-24 14:52] VITALS: BP 129/81; PULSE 78; RESP 18; O2SAT 997
== END 2020-12-24 15:16 | disposition home or self-care (01) ==
PROVIDERS: Nurse Practitioner Family; Emergency Provider Family Medicine; PCP Family Medicine
DX: N13.30 Unspecified hydronephrosis (principal); N23 Unspecified renal colic
CPT/HCPCS: 74018; 74176; 80053; 81001; 84703; 85025; 96374; 96375; 99283; J2270; J2405

== ENCOUNTER 2020-12-30 13:06 | Outpatient (CLI) | payer OTHER, SELFPAY ==
--- NOTE | 2020-12-30 15:00 | XR_ITS ---
WS: [id number] XR KUB [id number] REASON FOR EXAM: HYDRONEPHROSIS FINDINGS: Previous cholecystectomy. Unremarkable bowel gas pattern. No findings for urinary tract calculi. The exam is limited due to the large amount of fecal material in the colon overlying the kidneys. Left renal calculi were identified on the CT scan of 12/24/2020. There is significant distention of the urinary bladder. XR/XR KUB [id number] IMPRESSION: Urinary calculi are not identified on this examination.
== END 2020-12-30 13:07 | disposition home or self-care (01) ==
LOC: RAD 13:08
PROVIDERS: PCP Family Medicine; Visit Provider Nurse Practitioner Family
DX: N13.30 Unspecified hydronephrosis (principal)
CPT/HCPCS: 74018; 81003

== ENCOUNTER 2021-01-15 07:51 | Outpatient (CLI) | payer OTHER, SELFPAY ==
--- NOTE | 2021-01-15 08:00 | US_ITS ---
WS: [id number] RENAL ULTRASOUND HISTORY: HYDRONEPHROSIS OF KIDNEY COMPARISON: None available. TECHNIQUE: 2-D and color Doppler imaging of the kidney submitted. Right kidney: 10.9 cm x 5.3 cm x 3.9 cm. Normal size kidney. There is no residual hydronephrosis identified. Very mild diffuse cortical thinni ng. No mass or calcification. Left kidney: 9.5 cm x 3.9 cm x 4.4 cm. Normal echogenicity with no hydronephrosis or mass. Aorta: Normal. Urinary Bladder: Normal distention. US/US renal BI* [id number] IMPRESSION: 1. No residual RIGHT hydronephrosis. 2. Negative renal ultrasound.
== END 2021-01-15 07:52 | disposition home or self-care (01) ==
PROVIDERS: PCP Family Medicine; Visit Provider Urology
DX: N13.30 Unspecified hydronephrosis (principal)
CPT/HCPCS: 76770; 81003

== ENCOUNTER 2021-01-23 13:39 | Outpatient (CLI) | payer OTHER, SELFPAY ==
--- NOTE | 2021-01-23 13:44 | MR_ITS ---
WS: [id number] MRI HEAD WITHOUT CONTRAST TECHNIQUE: Sagittal T1, T2 axial, T2 axial FLAIR, axial and coronal T1 images, axial susceptibility w eighted imaging, axial diffusion weighted images, and coronal T2 images were obtained. CLINICAL INFORMATION: LACUNAR STROKE COMPARISON: CT May 17, 2020 FINDINGS: Correlation to prior CT May 17, 2020 No evidence of restricted diffusion to suggest acute ischemia. Ventricular system and basal cisterns are patent. Normal barriga-white differentiation. Again seen are the small periventricular white matter lesions in the bilateral parietal white matter. No evidence of surrounding gliosis. Appearance is con sistent with benign incidental perivascular spaces. No lacunar infarcts or other suspicious lesions. Normal posterior fossa. Normal vascular flow voids at the skull base. No extra axial fluid collection s. Paranasal sinuses and mastoid air cells are well aerated. No hemosiderin on susceptibly weighted images. Normal optic chiasm and pituitary infundibulum. Cavernous sinuses and Meckel's cave are normal in jonatan earance. Temporal lobes and hippocampal formations are normal in appearance. Proximal 7th and 8th crane engineer nial nerves appear normal. MR/MR head wo con* [id number] IMPRESSION: 1. No evidence of restricted diffusion to suggest acute ischemia. 2. Incidental benign prominent perivascular spaces in the periventricular hermila etal white matter correspond to the lesion seen on the recent CT. These are inc idental and benign. 3. No suspicious intracranial signal abnormalities. 4. No hemosiderin on the susceptibility images. 5. Mild mucosal thickening in the sphenoid sinus. Paranasal sinuses and mastoi d air cells are otherwise well aerated.
== END 2021-01-23 13:40 | disposition home or self-care (01) ==
LOC: RADSHAW 13:41
PROVIDERS: PCP Family Medicine; Visit Provider Family Medicine
DX: I63.9 Cerebral infarction, unspecified (principal)
CPT/HCPCS: 70551

== ENCOUNTER 2021-04-08 14:22 | Outpatient (CLI) | payer OTHER, SELFPAY ==
--- NOTE | 2021-04-08 14:45 | XRR_ITS ---
PROCEDURE INFORMATION: Exam: XR Abdomen Exam date and time: 04/08/2021 2:45 PM Age: 30 years old Clinical indication: Condition or disease; Kidney or ureter condition; Calculus (stone) in kidney; Prior surgery; Surgery type: Tubal, gb, appendectomy, edeometriosis; Additional info: Stones, kub ozh 04/08/21 @ 2:45 pm appt to follow TECHNIQUE: Imaging protocol: XR of the abdomen. Views: Frontal supine view of the abdomen. 1 View. COMPARISON: 1. CT abdomen pelvis wo con [id number] 04/07/2021 8:34 AM 2. CR XR KUB [id number] 12/30/2020 1:23 PM 3. CR XR KUB [id number] 12/24/2020 12:[address] kidney stone [id number] 12/24/2020 2:09 PM FINDINGS: Gastrointestinal tract: There is nonspecific dilated bowel loops in the right lower quadrant . Status post cholecystectomy. Otherwise negative examination Bones/joints: Unremarkable. XR/XR KUB [id number] IMPRESSION: 1. Dilated bowel loop right lower quadrant 2. Status post cholecystectomy 3. No acute findings.
== END 2021-04-08 14:23 | disposition home or self-care (01) ==
LOC: RAD 14:25
PROVIDERS: PCP Family Medicine; Visit Provider Urology
DX: N20.0 Calculus of kidney (principal); Z90.49 Acquired absence of other specified parts of digestive tract
CPT/HCPCS: 74018; 81003

== ENCOUNTER 2021-04-09 10:28 | Day surgery (SDC) | payer OTHER, SELFPAY ==
[2021-04-08 16:50] VITALS: BMI 22.8
--- NOTE | 2021-04-09 | SCC_ITS ---
Procedure Done: 1. Cystoscopy with left retrograde ureteropyelogram 2. Left ureteroscopy, laser lithotripsy, stent 32.3 seconds of fluoroscopic guidance, for a cumulative dose of 3.77 mGy, was provided to Dr. Simpson by the radiology department. C-arm images of the abdomen were saved for the patient's permanent record. [facility]
--- NOTE | 2021-04-09 10:58 | XR_ITS ---
WS: [id number] KUB, AP view, 04/09/2021 Clinical Data: Preop left ureteroscopy Comparison: KUB, 04/08/2021. Findings: No abnormal intraabdominal masses are seen. There is no dilatated small bowel or evidence of obstruct ion. There is a moderate amount of fecal material throughout the colon. There is a 0.6 cm calcification on the left side of the true pelvis. There are clips overlying the le ft ilium which were not present yesterday. There are right upper quadrant clips from a cholecystectom y. The bladder is full. XR/XR KUB [id number] Impression: 1. 0.6 cm calcification on the left side of the true pelvis which could be in t he distal left ureter. 2. Fecal material and colon gas obscure detail over both kidneys.
--- NOTE | 2021-04-09 11:37 | SC_ITS ---
WS: [id number] C-arm fluoroscopy for left ureteral stent placement, 04/09/2021 Clinical Data: intra-op Comparison: KUB, 04/09/2021 Findings: Left retrograde urogram was performed. A left ureteral stent was inserted. SC/C-arm FL for Urology Impression: Left ureteral stent insertion.
[2021-04-09 11:44] VITALS: BP 144/109; PULSE 82; RESP 18; TEMP 36.7; O2SAT 100
--- NOTE | 2021-04-09 11:58 | P.OP_ITS ---
Operative Report Date of procedure: April 09, 2021 Pre-op Diagnosis: Refractory 6 to 7 mm left distal ureteral stone Post-op diagnosis: same Procedure Done: 1. Cystoscopy with left retrograde ureteropyelogram 2. Left ureteroscopy, laser lithotripsy, stent Implants: Left ureteral stent Pathology: Stone fragments Surgeon: Calvin Anesthesia: General Estimated blood loss: Minimal Urine output: Not measured Complications: None Findings: Stone in the expected position. Fragmented with laser lithotripsy. Condition: stable Disposition: PACU Brief History: Sangeeta is a very pleasant 30-year-old white female recently diagnosed with a large left distal ureteral stone with refractory symptoms. She tried to pass a stone but could not during the conservative trial and was having refractory pain requiring persistent narcotics. No evidence of systemic infectious concerns. Due to the uncontrolled pain she requested intervention and she is admitted today for an URGENT endoscopic treatment of the stone. Procedure: After urgent evaluation examination and obtaining of informed consent she was taken to the operating suite on 04/09/2021 where general anesthesia was administered without difficulty after appropriate timeout was performed, SCDs confirmed to be functioning, preoperative antibiotics administered, beta-irene protocol confirmed. Prepped and draped in usual sterile fashion in dorsolithotomy position paying careful attention to avoiding pressure points. 21 St Helenian cystoscope with 30 degree lens was introduced into urethra meatus and advanced into the bladder under videoscopy. The bladder was systematically examined and found to be within normal limits. No stones were seen in the bladder. An 8 [place] Helenian cone-tip catheter was intubated to the left ureteral orifice for a left retrograde ureteropyelogram which demonstrated normal ureter caliber and course distal to the stone, filling defect consistent with a stone seen on plain x-ray, and ureter proximal to the stone was dilated. No other obvious stones were identified. A flexible tip guidewire was then advanced up the left ureter bypassing the stone. The ureter distal to the ureter was then dilated with a 15 St Helenian 4 cm balloon to just below the stone. Maximum of 4 kitty of pressure. The wire was secured to the drapes as a safety wire. A 7 [place] Helenian offset semirigid ureteroscope was then advanced up the left ureter to the level of the stone which was encountered in its expected position. A 365 ?m thulium superpulse laser fiber was utilized to fragment the stone on dusting settings into fragments that were flushed free from the ureter and removed with a combination of grasping forceps and parachute basket. Final inspection showed no residual stones as the scope was passed into the proximal ureter. The area where the stone had been located was quite edematous and for that reason a stent was left indwelling. A 7 St Helenian by 24 cm double-pigtail stent was advanced over the guidewire through the cystoscope into appropriate position as confirmed via fluoroscopy and cystoscopy. The bladder was drained and the procedure was completed. She tolerated procedure well without complications and was awakened in the operating room and returned to the room in stable condition. PLANS: 1. Anticipate discharge from outpatient surgery today with stent indwelling 2. Follow-up early next week for cystoscopy and stent removal 3. Refill pain medication for use as indicated postop pain and stent pain Associated Problem List Diagnoses (1) Left ureteral calculus:
--- NOTE | 2021-04-09 11:58 | W.PM.OPSUD ---
Surgery/Procedure H&P Update DATE OF PROCEDURE: April 09, 2021 DATE H&P PERFORMED: 04/09/21 H&P UPDATE INFORMATION: I have reviewed H&P completed within last 30 days, I have examined patient prior to procedure, No changes to prior documentation and H&P is in [facility] EMR on date indicated CHANGES TO PREVIOUS DOCUMENTATION: KUB today confirms the roughly same position of the stone seen yesterday. PREOP DIAGNOSIS: Refractory left ureteral calculus PLANNED PROCEDURE: Operation Date: 04/09/21 12:20 Proposed Procedures p Laser Lithotripsy 58591 [id number] n20.0(Not Applicable) - Chinedu Simpson MD s Cystoscopy(Not Applicable) - MD deric Rhodes Ureteral Stent Placement(Not Applicable) - MD deric Rhodes left Retrograde Pyelogram(Left) - MD deric Rhodes Ureteroscopy(Not Applicable) - Chinedu Simpson MD
--- NOTE | 2021-04-09 11:59 | ANES.PREANE2 ---
Pre-Anesthetic Assessment Pre-Anesthetic Assessment: Height/Weight: Height 1.6 m Weight 58.513 kg Temp Pulse Resp BP Pulse Ox 98.1 F 82 18 144/109 100 04/09/21 11:44 04/09/21 11:44 04/09/21 11:44 04/09/21 11:44 04/09/21 11:44 Preop Diagnosis: Refractory left ureteral calculus Proposed Procedure: Operation Date: 04/09/21 12:20 Proposed Procedures p Laser Lithotripsy 89586 [id number] 30097 n20.0(Not Applicable) - Chinedu Simpson MD s Cystoscopy(Not Applicable) - Chinedu Simpson MD s Ureteral Stent Placement(Not Applicable) - Chinedu Simpson MD s left Retrograde Pyelogram(Left) - MD deric Rhodes Ureteroscopy(Not Applicable) - Chinedu Simpson MD Familial anesthetic complications: none Was Beta Ade taken within 24 hours: N/A Was Clonidine taken within 24 hours: N/A Last intake: Intake Last Liquid Date 04/09/21 Last Liquid Time 06:30 Last Solid Date 04/08/21 Last Solid Time 22:00 Social: Social History: No alcohol and No tobacco Exam: Pre-Anes Outpt Exam: alert, oriented x 3, clear to auscultation bilaterally and regular rate & rhythm Airway: Cervical ROM: WNL MP: 1 Dentition: Full Anesthetic Plan: ASA status: 1 Anesthesia: General Risk of > 500 ml blood loss (7ml/kg in children): No PFSH Anesthesia PFSH: Medical History Endometriosis determined by laparoscopy (~2013) Initially diagnosed with endometriosis in 2013 by laparoscopy. 09/03/2020: Laparoscopy with cauterization of endometriosis History of PID (~2017) Migraine Nausea and vomiting Recurrent UTI Renal stones Surgical History H/O laparoscopy 2013--ov cyst removal; caut of endometriosis 2014-- cautery of endometriosis H/O tubal ligation (09/03/20) Laparoscopic bilateral complete salpingectomy, cauterization of pelvic peritoneal endometriosis. [place]. [place] [facility] [place] History of appendectomy (~2017) laparosopic History of cholecystectomy (~2011) Laparoscopic Family History Mother Hyperlipidemia Hypertension Family history of thyroid problem Social History Smoking and tobacco status: never smoked Alcohol intake: former Former alcohol use details: Social before Marital status: Current occupational status: employed History of recent travel: No Data Anesthesia Cardiac Studies: No Data to Display
[2021-04-09] MEDS: sodium chloride 0.9% 1,000 ML 30 ML IV (12:00)
[2021-04-09] MEDS: levofloxacin-dextrose 5 % 500 MG/100 ML PREMIX 100 MG IV (12:05)
[2021-04-09 12:50] VITALS: BP 106/66; PULSE 74; RESP 16; TEMP 36.9; O2SAT 99
[2021-04-09 12:55] VITALS: BP 103/71; PULSE 72; RESP 20; TEMP 36.9; O2SAT 98
[2021-04-09 13:11] VITALS: RESP 17
[2021-04-09] MEDS: morphine 4 mg/mL SDV 1 mL IVP (13:11)
[2021-04-09] MEDS: ondansetron 2 mg/ML SDV 2 mL 4 MG IVP (13:25)
[2021-04-09 13:45] VITALS: RESP 18; O2SAT 98
[2021-04-09] MEDS: oxyCODONE-APAP 5-325 mg Tablet 1 TAB PO (13:45)
[2021-04-09 13:46] VITALS: BP 126/83; PULSE 68; RESP 18; TEMP 36.9; O2SAT 99
--- NOTE | 2021-04-09 15:45 | ANE.PACU2 ---
Inpatient post-anesthesia follow up: Airway intact: Yes Vital signs: Temperature 98.5 F Pulse Rate 68 Respiratory Rate 18 Blood Pressure 126/83 Pulse Oximetry 99 Oxygen Delivery Me thod Room Air Oxygen Flow Rate Fraction of Inspir ed Oxygen Hydration adequate: Yes Nausea and vomiting: No Pain level: 3 Mental status: Baseline
[2021-04-14 01:57] LABS: Stone Source LEFT URETER
== END 2021-04-09 13:58 | disposition home or self-care (01) ==
PROVIDERS: PCP Family Medicine; Visit Provider Urology
PROC: (CPT 52356; principal; 2021-04-09 12:00)
PROC: 0TJB8ZZ Inspection of Bladder, Via Natural or Artificial Opening Endoscopic (ICD-10-PCS; CPT 52000; 2021-04-09 12:00)
PROC: (CPT 50605; 2021-04-09 12:00)
PROC: (CPT 74420; 2021-04-09 12:00)
PROC: 0TJ98ZZ Inspection of Ureter, Via Natural or Artificial Opening Endoscopic (ICD-10-PCS; CPT 52351; 2021-04-09 12:00)
DX: N20.1 Calculus of ureter (principal)
CPT/HCPCS: 52356; 74018; 76000; 82365; 88300; 96365; 96374; 96375; C2625; J1100; J1885; J1956; J2270; J2405; J2710; J3010; J3490; J7030

== ENCOUNTER → 2021-04-11 17:17 | Outpatient (BNVA) | payer OTHER, SELFPAY | PROVIDERS: PCP Family Medicine; Visit Provider Nurse Practitioner Family | DX: N20.1 Calculus of ureter (principal); N20.0 Calculus of kidney; N39.0 Urinary tract infection, site not specified; R50.9 Fever, unspecified | CPT/HCPCS: 81003 ==

== ENCOUNTER 2021-04-14 08:29 | Outpatient (CLI) | payer OTHER, SELFPAY ==
--- NOTE | 2021-04-14 08:35 | XRR_ITS ---
PROCEDURE INFORMATION: Exam: XR Abdomen Exam date and time: 04/14/2021 8:35 AM Age: 30 years old Clinical indication: Condition or disease; Kidney or ureter condition; Calculus (stone) in kidney; Prior surgery; Surgery type: Gb, kidney stones appy tubal; Additional info: N20.0 - calculus of kidney TECHNIQUE: Imaging protocol: XR of the abdomen. Views: Frontal supine view of the abdomen. 1 View. COMPARISON: CR XR KUB [id number] 04/09/2021 11:35 AM FINDINGS: Tubes, catheters and devices: A left ureteral stent projects in satisfactory position. Gastrointestinal tract: Normal. No bowel dilation. Organs: Clips are present in the right upper quadrant consistent with cholecystectomy. Bilateral tubal ligation clips are present. Tiny calcifications project on the left kidney measuring up to 1 mm in diameter. No stones are seen in the course of the ureters. Bones/joints: Unremarkable. XR/XR KUB [id number] IMPRESSION: 1. Satisfactory left ureteral stent position. 2. Left nephrolithiasis. 3. No ureteral calculi are seen.
== END 2021-04-14 08:30 | disposition home or self-care (01) ==
PROVIDERS: PCP Family Medicine; Visit Provider Urology
DX: N20.0 Calculus of kidney (principal)
CPT/HCPCS: 74018; 81003

== ENCOUNTER → 2021-05-01 13:49 | Outpatient (BNVA) | payer OTHER, SELFPAY | PROVIDERS: PCP Family Medicine; Visit Provider Registered Nurse | DX: R50.9 Fever, unspecified (principal); Z20.822 Contact with and (suspected) exposure to COVID-19 | CPT/HCPCS: 87635 ==

== ENCOUNTER 2021-07-03 07:31 | Outpatient (CLI) | payer OTHER, SELFPAY ==
--- NOTE | 2021-07-03 07:15 | XR_ITS ---
WS: [id number] XR KUB [id number] REASON FOR EXAM: URETERAL STENT FINDINGS: No free air or retroperitoneal air. Normal bowel gas pattern. 3. Very small calculi within the mid and lower left kidney correlating with recent CT scan. No other urinary tract calculi identified. Calculus previously demonstrated in the distal left ureter no longe r identifiable. Mild rotatory scoliosis of the lumbar spine convex left. Bony pelvis intact. XR/XR KUB [id number] IMPRESSION: Small left renal calculi as above.
== END 2021-07-03 07:32 | disposition home or self-care (01) ==
PROVIDERS: PCP Family Medicine; Visit Provider Urology
DX: Z96.0 Presence of urogenital implants (principal); N20.0 Calculus of kidney
CPT/HCPCS: 74018; 81003; 87086

== ENCOUNTER 2021-08-04 19:41 | Emergency (ER) | payer OTHER, SELFPAY ==
[2021-08-04 20:12] VITALS: BP 127/85; PULSE 110; RESP 18; TEMP 36.4; O2SAT 100; BMI 22.4
--- NOTE | 2021-08-05 00:07 | W.ED.BACK ---
HPI - Back Pain/Injury General: Chief Complaint: Back Pain/Injury Stated Complaint: Lower Back Pain Time Seen by Provider: 08/04/21 23:54 Source: patient Mode of arrival: wheelchair Limitations: no limitations History of Present Illness: HPI Narrative: Patient is a 30-year-old female who presents to ED today with a complaint of severe lower back pain. Patient tells me symptoms initially began approximately 4 to 5 days ago. She has not had any injury or trauma. She describes the pain as midline to her mid to lower lumbar. She states she was seen at [facility] ED and had lumbar XR performed which was reportedly normal. She states she was discharged home with Flexeril. She saw her PCP today and given IM Toradol and a prescription for Gabapentin. Patient tells me pain is continuing to increase. She has now noticed tingling to her right anteriomedial thigh. She does not complain of saddle anesthesia. No urinary retention or bowel incontinence. No fevers. No history of IV drug use. MD elicited complaint: back pain Onset (ago): day(s) Timing: constant Severity: severe Pain scale (0-10): 8 Similar Symptoms Previously: No Quality: burning and sharp Location: lumbar spine Radiation: right upper leg Exacerbating factors: movement and walking Relieving factors: none Associated symptoms: Reports tingling/numbness/burning (R thigh); Deny abdominal pain, chills, dysuria, fatigue, fever(s) or urinary urgency Work related injury: No Review of Systems Const: Denies: fever(s), chills, body aches, fatigue or malaise Card: Denies: chest pain Resp: Denies: dyspnea GI: Denies: abdominal pain : Denies: flank pain, dysuria, urinary frequency or urinary urgency Musc: Reports: back pain; Denies: neck pain, extremity pain, extremity swelling, joint pain, joint swelling, joint redness or joint warmth Skin/Breast: Denies: rash Neuro: Reports: sensory changes (R thigh); Denies: headache(s), weakness in extremities, lack of coordination or dizziness [facility] PFSH: Medical History Endometriosis determined by laparoscopy (~2013) Initially diagnosed with endometriosis in 2013 by laparoscopy. 09/03/2020: Laparoscopy with cauterization of endometriosis History of PID (~2017) Migraine Nausea and vomiting Recurrent UTI Renal stones Multiple small stones left kidney Surgical History H/O laparoscopy 2013--ov cyst removal; caut of endometriosis 2014-- cautery of endometriosis H/O tubal ligation (09/03/20) Laparoscopic bilateral complete salpingectomy, cauterization of pelvic peritoneal endometriosis. Performed by Dr. Rich at [facility] in [place], [place] History of appendectomy (~2017) laparosopic History of cholecystectomy (~2011) Laparoscopic Family History Mother Hyperlipidemia Hypertension Family history of thyroid problem Social History Smoking and tobacco status: never smoked Alcohol intake: former Former alcohol use details: Social before Marital status: Current occupational status: employed History of recent travel: No Physical Exam Const: COMMON NORMALS: no acute distress, average body habitus, patient oriented x3, no limitations, healthy appearing, alert and well nourished GENERAL APPEARANCE: cooperative and other (appears mildly uncomfortable ) ORIENTATION/CONSCIOUSNESS: Yes awake, Yes oriented to person, Yes oriented to place and Yes oriented to time HENMT: COMMON NORMALS: normocephalic and atraumatic HEAD & SCALP: normocephalic and atraumatic Back/Pelvis: LUMBAR SPINE/LOWER BACK: Yes lumbar spinal tenderness (mid L spine), No paraspinal muscle tenderness, No paraspinal muscle spasm and Yes straight leg raise positive right PELVIS: Yes buttocks normal and No sciatic notch tenderness SACROILIAC JOINTS: Yes SI joints normal Extremity: COMMON NORMALS: normal to inspection, full ROM, capillary refill normal, no joint enlargement, no clubbing, cyanosis or edema, no calf tenderness and no pedal edema GENERAL: Yes normal exam except as noted Neuro: LOU COMA SCALE: document GCS findings [place] coma scale eye opening: Spontaneous [place] coma scale verbal response: Orientated Lou coma scale motor response: Obey commands Lou coma scale total score: 15 COMMON NORMALS: patient oriented x3, moves all extremities, no focal motor deficits and no sensory deficits noted SENSORIUM/ORIENTATION: Yes alert, Yes oriented to person, Yes oriented to place and Yes oriented to time MOTOR EXAM: 5/5 motor strength present throughout Skin: COMMON NORMALS: no rashes or lesions noted GENERAL SKIN EXAM: no rashes or lesions noted TRAUMA: no lacerations or abrasions Course Vital Signs: Vital signs: Vital Signs Temperature 97.6 F 08/04/21 20:12 Pulse Rate 76 08/05/21 01:39 Respiratory Rate 18 08/05/21 01:39 Blood Pressure 136/70 08/05/21 01:39 Pulse Oximetry 97 08/05/21 01:39 MDM - Back Pain/Injury MDM Narrative: Medical decision making narrative: Patient had no acute neurological deficits on her exam however seeing now this is patient's third visit for medical evaluation in regards to her back pain CT imaging was obtained. This is completely normal. She has normal vital signs. Will place patient on steroids and give pain medications for home she may use for severe pain. Strict return to ED precautions given. Recommend follow up with PCP in 3-5 days if symptoms are not improving. Lab Data: Labs: Lab Results 08/05/21 08/05/21 00:00 00:00 Urine Color Yellow (Yellow) Urine Appearance Clear (CLEAR) Urine pH 5 (5-7) Ur Specific Gravit y 1.025 (1.005-1.030) Urine Protein Neg (Negative) Urine Glucose (UA) Norm (Normal) Urine Ketones 1+ H (Negative) Urine Blood Neg (Negative) Urine Nitrate Negative (Negative) Urine Bilirubin 1+ H (Negative) Urine Urobilinogen 1 mg/dL H mg/dL (Negative) Ur Leukocyte Geovanna ase Negative (Negative) Urine HCG, Qual Negative (Negative) Imaging Data^: CT lumbar: Radiologist's impression: [address] [address] [address] Scan Report Signed Patient: Sangeeta Daniel Unit #: [id number] : 1990 Age/Sex: 30 / F ADM Date: 08/04/21 Loc: ER Room/Bed: Attending Dr: Ordering Provider/Ordering MD: Nettie Humphrey Date of Service: 08/05/21 Procedure(s): CT lumbar spine wo con* [id number] Accession Number(s): [id number] Report Number: [id number] PROCEDURE INFORMATION: Exam: CT Lumbar Spine Without Contrast Exam date and time: 08/05/2021 12:06 AM Age: 30 years old Clinical indication: Low back pain; Prior surgery; Surgery type: Gb, appy; Additional info: Severe lumbar back pain; R leg paresthesias TECHNIQUE: Imaging protocol: Computed tomography images of the lumbar spine without contrast. Radiation optimization: All CT scans at this facility use at least one of these dose optimization techniques: automated exposure control; mA and/or kV adjustment per patient size (includes targeted exams where dose is matched to clinical indication); or iterative reconstruction. COMPARISON: CT abdomen pelvis wo con [id number] 04/07/2021 8:34 AM RADIATION DOSE METRICS: Total DLP (mGy-cm): 1494.89 FINDINGS: Vertebrae: No acute fracture. Normal alignment. No canal stenosis or neural foraminal narrowing is seen in the lumbar spine Kidneys and ureters: Several small renal stones are again seen in the left kidney. No hydronephrosis. Soft tissues: Unremarkable. CT/CT lumbar spine wo con* [id number] IMPRESSION: 1. No acute finding. No canal stenosis or neural foraminal narrowing is visualized in the lumbar spine. 2. Nephrolithiasis. Radiation Dose CTDIVOL = (mGy): DLP = 1494.89 (mGy-cm) Dictated By: Marcial Hancock MD Signed By: Marcial Hancock MD Signed Date/Time: 08/05/21215 DD/ 0006 Discharge Plan Discharge Patient Disposition: Home Clinical Impression: Acute lumbar radiculopathy Condition: Stable Prescriptions: New prednisone 10 mg tablet 60 mg PO DAILY 5 Days Qty: 30 RF: 0 hydrocodone-acetaminophen 5-325 mg tablet 1 tab PO Q6H PRN (Reason: pain) Qty: 14 RF: 0 No Action amoxicillin 500 mg capsule 500 mg PO TID Qty: 30 RF: 0 Discharge Orders: Discharge ED (Routine); Ordered 08/05/21 Ordered By: Nettie Humphrey Referrals: Adonay Pennington MD [Primary Care Provider] - Patient Instructions: Opioid Safety Activity Restrictions/Additional Instructions: [facility] is committed to fighting the nationwide opiate epidemic. We are providing ALL patients with information regarding opiate safety. If you received opiate pain medication during your stay or if you received a prescription for opiate pain medication-please review this handout. If not, you may disregard. Thank you. As we discussed please contact your primary care provider for follow-up appointment in 3 to 5 days if symptoms do not seem to be improving. You need to return the emergency department for severe or uncontrollable pain, inability to urinate, losing control of your bowels, fevers greater than 100.4, generally feeling unwell, or any other concerns you may have. I hope you begin to feel better soon. Coding Level of Care Code ED Lead Supply Worker for Zenaida Fwanisa Exam Detailed
[2021-08-05 00:31] LABS: Add Urine Microscopic? NO; Charge for UA Resulting for Rev
[2021-08-05 00:38] VITALS: RESP 18; O2SAT 99
[2021-08-05] MEDS: morphine 4 mg/mL SDV 1 mL IM (00:38)
[2021-08-05] MEDS: orphenadrine 30 mg/mL Inj 2 mL 60 MG IM (00:44)
[2021-08-05 00:50] LABS: Bilirubin Urine 1+ (Negative); Blood Urine Neg (Negative); Glucose Urine UA Norm (Normal); Ketones Urine 1+ (Negative); Leukocyte Esterase Urine Negative (Negative); Nitrate Urine Negative (Negative); Protein Urine Neg (Negative); Specific Gravity, Urine 1.025 (1.005-1.030); Urine Appearance Clear (CLEAR); Urine Color Yellow (Yellow); Urobilinogen Urine 1 mg/dL (Negative); pH Urine 5 (5-7)
[2021-08-05 01:39] VITALS: BP 136/70; PULSE 76; RESP 18; O2SAT 97
--- NOTE | 2021-08-05 01:40 | PC.NURSE ---
pt states pain is improved. no needs at this time. call light in reach
[2021-08-05] MEDS: HYDROcodone-acetaminophen 5-325 mg Tablet 1 TAB PO (04:06)
== END 2021-08-05 03:00 | disposition home or self-care (01) ==
PROVIDERS: Emergency Provider Physician Assistant; PCP Family Medicine
DX: M54.16 Radiculopathy, lumbar region (principal)
CPT/HCPCS: 72131; 81003; 81025; 96372; 99283; J2270; J2360

== ENCOUNTER 2021-09-28 18:14 | Emergency (ER) | payer OTHER, SELFPAY ==
[2021-09-28 19:49] VITALS: BP 129/86; PULSE 100; RESP 18; TEMP 36.7; O2SAT 100; BMI 23.0
[2021-09-28 20:31] LABS: Bilirubin Urine Neg (Negative); Blood Urine 2+ (Negative); Glucose Urine UA Norm (Normal); Ketones Urine Negative (Negative); Nitrate Urine Negative (Negative); Protein Urine Neg (Negative); Specific Gravity, Urine 1.015 (1.005-1.030); Urine Appearance Clear (CLEAR); Urine Color Yellow (Yellow); Urobilinogen Urine 1 mg/dL (Negative); pH Urine 7 (5-7)
[2021-09-28 20:32] LABS: Add Urine Culture? No; Add Urine Microscopic? YES; Bacteria Urine TRACE /hpf; Leukocyte Esterase Urine 1+ (Negative); Mucus Urine TRACE /hpf; RBC Urine 0-4 /hpf (0-2); WBC Urine 0-4 /hpf (0-5)
--- NOTE | 2021-09-28 21:49 | CTR_ITS ---
PROCEDURE INFORMATION: Exam: CT Abdomen And Pelvis Without Contrast Exam date and time: 09/28/2021 9:49 PM Age: 30 years old Clinical indication: Abdominal pain; Flank; Left; Prior surgery; Surgery date: 6+ months; Surgery type: Tubal, gb, appy; Additional info: Left flank pain, history of kidney stones TECHNIQUE: Imaging protocol: Computed tomography of the abdomen and pelvis without contrast. Total images: 419 Radiation optimization: All CT scans at this facility use at least one of these dose optimization techniques: automated exposure control; mA and/or kV adjustment per patient size (includes targeted exams where dose is matched to clinical indication); or iterative reconstruction. COMPARISON: CT abdomen pelvis wo con [id number] 04/07/2021 8:34 AM RADIATION DOSE METRICS: Total DLP (mGy-cm): 562.96 FINDINGS: Lungs: Limited assessment of the lung bases fails to reveal evidence for active cardiopulmonary process. Liver: No visible hepatic mass or cystic structure. Gallbladder and bile ducts: Status post cholecystectomy. Pancreas: Pancreas is unremarkable. No visible pancreatic ductal ectasia. Spleen: Spleen unremarkable. Adrenal glands: Adrenal glands unremarkable. Kidneys and ureters: No hydronephrosis or perinephric fluid. Three small nonobstructing calyceal nephrolithiasis foci inferior pole left kidney all under 3 mm. No visible ureterolithiasis bilaterally. No nephrolithiasis right kidney. Stomach and bowel: Nonobstructive bowel pattern. No visible adynamic or reactive ileus. Heavy fecal residue consistent with constipation. Appendix: Status post appendectomy. Intraperitoneal space: No visible pneumoperitoneum or intraperitoneal ascites. Vasculature: The abdominal aorta is nonaneurysmal. Stable phlebolith near the left ureter true pelvis since 04/07/2021. Lymph nodes: Unremarkable. No enlarged lymph nodes. Urinary bladder: Urinary bladder unremarkable. No visible bladder stone. Reproductive: Unremarkable as visualized. Bones/joints: No visible acute osseous abnormality. Soft tissues: Unremarkable. CT/CT kidney stone [id number] IMPRESSION: 1. Currently no visible evidence for acute abdominal or pelvic pathologic process. 2. Left nephrolithiasis. 3. No visible ureterolithiasis bilaterally. 4. Constipation. COMMENTS: Consistent with the [place] [employer]'s Incidental Findings Committee white paper (J Am Joe Radiol 2018): Any incidental renal lesion less than 1 cm or classified as too small to characterize, or any incidental cystic renal lesion characterized as simple-appearing, is likely benign. No follow-up imaging is recommended for these lesions per consensus recommendations based on imaging criteria.
[2021-09-28 22:22] VITALS: BP 125/75; PULSE 94; RESP 18; TEMP 36.7; O2SAT 100
--- NOTE | 2021-09-28 23:01 | W.ED.FEMALGU ---
HPI - Female Genitourinary General: Chief complaint: Urogenital-Female Stated complaint: Left Side and Back Pain Time Seen by Provider: 09/28/21 23:00 History of Present Illness: HPI Narrative: Patient is a 30-year-old female comes to the ED with UTI symptoms and left flank pain. Patient says she has a history of past kidney stones. Symptoms started on last night. She said she was having an acute left flank pain. Says the pain was similar to her past kidney stone. Pain has continued through the night and into today she endorses some nausea as well. Pain radiates down into the front of the abdomen and to the left lower quadrant. Patient also reports some pain and discomfort when she urinates. Patient does endorse having some chronic constipation but no acute change. Associated symptoms: Deny abdominal pain, headache(s) or nausea Review of Systems Const: Denies: fever(s), chills or fatigue Eyes: Denies: change in vision or eye discomfort ENMT: Denies: throat pain, odynophagia, nasal discharge or nasal congestion Card: Denies: chest pain, palpitations, edema, swelling of feet/ankles, dyspnea on exertion or orthopnea Resp: Denies: dyspnea, productive cough or non-productive cough GI: Denies: abdominal pain, nausea, vomiting, diarrhea, constipation or hematochezia : Reports: flank pain (left ) and dysuria; Denies: hematuria Musc: Denies: neck pain, back pain or extremity swelling Skin/Breast: Denies: rash or new lesions Neuro: Denies: headache(s), numbness in extremities or weakness in extremities PFSH ED PFSH: Medical History Endometriosis determined by laparoscopy (~2013) Initially diagnosed with endometriosis in 2013 by laparoscopy. 09/03/2020: Laparoscopy with cauterization of endometriosis History of PID (~2017) Migraine Nausea and vomiting Psychiatric care Recurrent UTI Renal stones Multiple small stones left kidney Surgical History H/O laparoscopy 2013--ov cyst removal; caut of endometriosis 2014-- cautery of endometriosis H/O tubal ligation (09/03/20) Laparoscopic bilateral complete salpingectomy, cauterization of pelvic peritoneal endometriosis. Performed by Dr. Rich at [facility] in [place], [place] History of appendectomy (~2017) laparosopic History of cholecystectomy (~2011) Laparoscopic Family History Mother Hyperlipidemia Hypertension Family history of thyroid problem Social History Smoking and tobacco status: never smoked Alcohol intake: former Former alcohol use details: Social before Marital status: Current occupational status: employed History of recent travel: No Physical Exam Const: COMMON NORMALS: no acute distress, patient oriented x3, healthy appearing and alert GENERAL APPEARANCE: cooperative and comfortable HENMT: COMMON NORMALS: normocephalic HEAD & SCALP: normocephalic MOUTH: Normal oral and palatal mucosa present THROAT: posterior oropharynx normal and uvula midline Eye: COMMON NORMALS: Equal, round and reactive pupils present PUPIL: Yes Equal, round and reactive pupils present Neck/C-Spine: COMMON NORMALS: supple GENERAL: Yes normal visual inspection Resp: COMMON NORMALS: normal respiratory effort, No retractions, No use of accessory muscles and clear to auscultation bilaterally AUSCULTATION: clear to auscultation bilaterally Cardio: COMMON NORMALS: regular rate, regular rhythm, S1 normal heart sound present, S2 normal heart sound present, No gallops present (Cardio), No clicks present (Cardio), No murmurs present (Cardio) and Peripheral pulses 2+ throughout RATE: regular rate RHYTHM: regular rhythm HEART SOUNDS: S1 normal heart sound present and S2 normal heart sound present PERIPHERAL PULSES: Peripheral pulses 2+ throughout GI: COMMON NORMALS: Normal to inspection, nondistended, normoactive bowel sounds present, Soft to palpation, non-tender and no masses PALPATION: Yes Soft to palpation : BLADDER/KIDNEY EXAM: Yes CVA tenderness Back/Pelvis: GENERAL BACK: Yes CVA tenderness CVA tenderness: left Extremity: COMMON NORMALS: normal to inspection Neuro: COMMON NORMALS: patient oriented x3 and moves all extremities SENSORIUM/ORIENTATION: Yes alert Skin: GENERAL SKIN EXAM: dry skin Course Vital Signs: Vital signs: Vital Signs Temperature 98.1 F 09/28/21 23:41 Pulse Rate 94 09/28/21 23:41 Respiratory Rate 18 09/28/21 23:41 Blood Pressure 125/75 09/28/21 23:41 Pulse Oximetry 100 09/28/21 23:41 MDM - Female MDM Narrative: Medical decision making narrative: Patient is a 30-year-old female comes to the ED with left flank pain and UTI symptoms. Vitals stable. Patient appears nontoxic and in no acute distress or pain. She does have some left CVA tenderness. UA shows some blood. CT kidney stone shows no acute abdominal or pelvic process noted. Patient does have some left nephrolithiasis that is nonobstructive. Patient was diagnosed with UTI symptoms and left nephrolithiasis. She was given a dose of hydrocodone, Zofran and Rocephin while here in the ED. Patient was discharged home with a prescription for Bactrim, Zofran and some hydrocodone for pain. She was told to follow-up with her PCP in 5 to 7 days reevaluation. Return ED precautions given. Patient understood agree with plan. Lab Data: Attestation: I reviewed the patient's lab results. Labs: Lab Results 09/28/21 20:03 Urine Color Yellow (Yellow) Urine Appearance Clear (CLEAR) Urine pH 7 (5-7) Ur Specific Gravit y 1.015 (1.005-1.030) Urine Protein Neg (Negative) Urine Glucose (UA) Norm (Normal) Urine Ketones Negative (Negative) Urine Blood 2+ H (Negative) Urine Nitrate Negative (Negative) Urine Bilirubin Neg (Negative) Urine Urobilinogen 1 mg/dL H mg/dL (Negative) Ur Leukocyte Geovanna ase 1+ H (Negative) Urine RBC 0-4 /hpf H /hpf (0-2) Urine WBC 0-4 /hpf H /hpf (0-5) Ur Squamous Epith Cells 5-10 /hpf H /hpf (0-5) Amorphous Sediment Not Reportable Urine Bacteria Trace /hpf /hpf (NONE) Urine Mucus Trace /hpf /hpf Imaging Data: CT Abd/Pel: Attestation: I personally reviewed and interpreted this imaging study as follows: Radiologist's impression: [address] [address] [address] Scan Report Signed Patient: Sangeeta Daniel Unit #: [id number] : 1990 Age/Sex: 30 / F ADM Date: 09/28/21 Loc: ER Room/Bed: Attending Dr: Ordering Provider/Ordering MD: Adonay Spears Date of Service: 09/28/21 Procedure(s): CT kidney stone [id number] Accession Number(s): [id number] Report Number: [id number] PROCEDURE INFORMATION: Exam: CT Abdomen And Pelvis Without Contrast Exam date and time: 09/28/2021 9:49 PM Age: 30 years old Clinical indication: Abdominal pain; Flank; Left; Prior surgery; Surgery date: 6+ months; Surgery type: Tubal, gb, appy; Additional info: Left flank pain, history of kidney stones TECHNIQUE: Imaging protocol: Computed tomography of the abdomen and pelvis without contrast. Total images: 419 Radiation optimization: All CT scans at this facility use at least one of these dose optimization techniques: automated exposure control; mA and/or kV adjustment per patient size (includes targeted exams where dose is matched to clinical indication); or iterative reconstruction. COMPARISON: CT abdomen pelvis wo con [id number] 04/07/2021 8:34 AM RADIATION DOSE METRICS: Total DLP (mGy-cm): 562.96 FINDINGS: Lungs: Limited assessment of the lung bases fails to reveal evidence for active cardiopulmonary process. Liver: No visible hepatic mass or cystic structure. Gallbladder and bile ducts: Status post cholecystectomy. Pancreas: Pancreas is unremarkable. No visible pancreatic ductal ectasia. Spleen: Spleen unremarkable. Adrenal glands: Adrenal glands unremarkable. Kidneys and ureters: No hydronephrosis or perinephric fluid. Three small nonobstructing calyceal nephrolithiasis foci inferior pole left kidney all under 3 mm. No visible ureterolithiasis bilaterally. No nephrolithiasis right kidney. Stomach and bowel: Nonobstructive bowel pattern. No visible adynamic or reactive ileus. Heavy fecal residue consistent with constipation. Appendix: Status post appendectomy. Intraperitoneal space: No visible pneumoperitoneum or intraperitoneal ascites. Vasculature: The abdominal aorta is nonaneurysmal. Stable phlebolith near the left ureter true pelvis since 04/07/2021. Lymph nodes: Unremarkable. No enlarged lymph nodes. Urinary bladder: Urinary bladder unremarkable. No visible bladder stone. Reproductive: Unremarkable as visualized. Bones/joints: No visible acute osseous abnormality. Soft tissues: Unremarkable. CT/CT kidney stone [id number] IMPRESSION: 1. Currently no visible evidence for acute abdominal or pelvic pathologic process. 2. Left nephrolithiasis. 3. No visible ureterolithiasis bilaterally. 4. Constipation. COMMENTS: Consistent with the [place] [employer]'s Incidental Findings Committee white paper (J Am Joe Radiol 2018): Any incidental renal lesion less than 1 cm or classified as too small to characterize, or any incidental cystic renal lesion characterized as simple-appearing, is likely benign. No follow-up imaging is recommended for these lesions per consensus recommendations based on imaging criteria. Dictated By: Omer Tsai Signed By: Omer Tsai Signed Date/Time: 09/28/212249 DD/ 48 Discharge Plan Discharge Patient Disposition: Home Clinical Impression: UTI symptoms, Left nephrolithiasis Condition: Stable Prescriptions: New Zofran 4 mg tablet 4 mg PO Q8H PRN (Reason: nausea and vomiting) Qty: 15 RF: 0 Bactrim DS 800-160 mg tablet 1 tab PO BID 5 Days Qty: 10 RF: 0 No Action amoxicillin 500 mg capsule 500 mg PO TID Qty: 30 RF: 0 venlafaxine [Effexor XR] 75 mg capsule,extended release 24hr 50 mg PO BID RF: 0 quetiapine [Seroquel] 25 mg tablet 25 mg PO DAILY RF: 0 gabapentin 100 mg capsule 100 mg PO TID RF: 0 hydrocodone-acetaminophen 5-325 mg tablet 1 tab PO Q6H PRN (Reason: pain) Qty: 14 RF: 0 Discharge Orders: Discharge ED (Routine); Ordered 09/28/21 Ordered By: Adonay Spears Referrals: Adonay Pennington MD [Primary Care Provider] - Discharge Diet: Regular Discharge Activity: Increase activity as tolerated Patient Instructions: Kidney Stones (ED), Urinary Tract Infection in Women (DC), Opioid Safety Activity Restrictions/Additional Instructions: Follow-up with medical provider as directed. Contact your PCP to schedule follow-up with them in the next 5 to 7 days. You can also contact Dr. Simpson to get an appointment set up with them for further evaluation as well. Drink plenty of fluids and stay hydrated. Take medications as prescribed. Return to the ER or your medical provider if condition worsens. Please read and understand discharge instructions. Thank you for choosing [facility] for your healthcare needs today. Please realize this is an emergency room and that we are providing you with a medical screening exam and this may not be complete and all inclusive of all the testing and or work up that you may need to determine your ailment or severity of your illness. It is very important that you follow up as instructed or that you return to the Emergency Department should you have concerns or if your condition changes or worsens in any way. Coding Level of Care Code ED Manager [employer] for Zenaida Hairston Exam Comprehensive
[2021-09-28] MEDS: cefTRIAXone 1,000 MG in lidocaine 1% 2.1 ML 2 MG IM (23:18)
[2021-09-28] MEDS: ondansetron 4 MG Tablet PO (23:20)
[2021-09-28] MEDS: HYDROcodone-acetaminophen 7.5-325 mg Tablet 1 TAB PO (23:20)
[2021-09-28] MEDS: HYDROcodone-acetaminophen 5-325 mg Tablet 1 TAB PO (23:26)
[2021-09-28 23:41] VITALS: BP 125/75; PULSE 94; RESP 18; TEMP 36.7; O2SAT 100
== END 2021-09-28 23:43 | disposition home or self-care (01) ==
PROVIDERS: Emergency Provider Physician Assistant; PCP Family Medicine
DX: N20.0 Calculus of kidney (principal); Z87.440 Personal history of urinary (tract) infections; Z87.442 Personal history of urinary calculi
CPT/HCPCS: 74176; 81001; 96372; 99283; J0696; Q0162

== ENCOUNTER 2022-04-24 13:25 | Emergency (ER) | payer OTHER, BC, MEDICAID, SELFPAY ==
[2022-04-24 14:12] VITALS: BP 128/84; PULSE 85; RESP 16; TEMP 36.6; O2SAT 100; BMI 22.1
--- NOTE | 2022-04-24 14:44 | CT_ITS ---
WS: [id number] CT ABDOMEN PELVIS TECHNIQUE: Noncontrast CT of the abdomen and pelvis with coronal and sagittal reformatted images. CLINICAL INFORMATION: L flank pain COMPARISON: CT April 22, 2022 DLP: 790.[address] scans at [facility] use at least one of these dose optimization techniques: automated e xposure control; mA and/or kV adjustment per patient size (includes targeted exams where dose is matc hed to clinical indication); or iterative reconstruction. FINDINGS: Prior cholecystectomy. Subcentimeter nonobstructing LEFT calyceal tip calculi. No obstructing renal o r ureteral calculi bilaterally. Prominent RIGHT extrarenal pelvis is unchanged. No hydronephrosis in either kidney. Adrenal glands are normal. Normal caliber abdominal aorta. Tiny fat-containing umbilic al hernia. Prior appendectomy. Urine distended bladder. Prominent uterus with thickened endometrium. Lung bases are well aerated. Mu ltifollicular ovaries bilaterally. Noncontrast spleen is normal. Rectosigmoid constipation. CT/CT kidney stone 40488 IMPRESSION: 1. No obstructing renal or ureteral calculi. 2. Nonobstructing tiny subcentimeter LEFT calyceal calculi unchanged from prev ious. 3. Prominent urinary distention of the bladder. 4. Multifollicular ovaries bilaterally. 5. Prominent uterus with thickened endometrium. 6. No free fluid in the pelvis. 7. Rectosigmoid constipation.
--- NOTE | 2022-04-24 14:44 | ED_ITS ---
HPI - Female Genitourinary General: Chief complaint: Back Pain/Injury Stated complaint: lower back pain Time Seen by Provider: 04/24/22 14:37 Source: patient Mode of arrival: ambulatory Limitations: no limitations History of Present Illness: Patient is a 31-year-old female presents to ED today with a complaint of left flank pain that began yesterday. Patient states she does have a history of left kidney and ureter stones and states her pain feels similar today. She is not complaining of any dysuria or hematuria. She does complain of feeling nauseous but has not had any episodes of emesis. She is having normal bowel movements. No fever/chills. MD elicited complaint: flank pain Pertinent past history: other (kidney/ureter stones) Onset (ago): day(s) (yesterday) Severity: severe Female Urogenital Radiation: L Flank Quality of pain: sharp Consistency: constant Vaginal discharge: none Vaginal bleeding: none Urinary symptoms: Flank Pain Exacerbating factors: none Relieving factors: none Associated symptoms: Reports nausea; Deny abdominal pain or headache(s) Treatment prior to arrival: none Patient : No Review of Systems Const: Denies: fever(s), chills, body aches, fatigue or malaise Card: Denies: chest pain Resp: Denies: dyspnea GI: Reports: nausea; Denies: abdominal pain, vomiting, diarrhea or change in bowel habits : Reports: flank pain; Denies: difficulty voiding, dysuria or hematuria Musc: Reports: back pain (L flank); Denies: neck pain, extremity pain or joint pain Skin/Breast: Denies: rash Neuro: Denies: headache(s), numbness in extremities, weakness in extremities or sensory changes PFS ED PFSH: Medical History Endometriosis determined by laparoscopy (~2013) Initially diagnosed with endometriosis in 2013 by laparoscopy. 09/03/2020: Laparoscopy with cauterization of endometriosis History of PID (~2017) Migraine Nausea and vomiting Psychiatric care Recurrent UTI Renal stones Multiple small stones left kidney Surgical History H/O laparoscopy 2013--ov cyst removal; caut of endometriosis 2014-- cautery of endometriosis H/O tubal ligation (09/03/20) Laparoscopic bilateral complete salpingectomy, cauterization of pelvic peritoneal endometriosis. Performed by Dr. Rich at [facility] in [place], [place] History of appendectomy (~2017) laparosopic History of cholecystectomy (~2011) Laparoscopic Family History Mother Hyperlipidemia Hypertension Family history of thyroid problem Social History Smoking and tobacco status: never smoked Second hand smoke exposure: Yes Alcohol intake: former Former alcohol use details: Social before Marital status: Current occupational status: employed History of recent travel: No Physical Exam Const: COMMON NORMALS: patient oriented x3, no limitations and alert GENERAL APPEARANCE: cooperative and in distress (appears uncomfortable) ORIENTATION/CONSCIOUSNESS: Yes awake, Yes oriented to person and Yes oriented to time HENMT: COMMON NORMALS: normocephalic and atraumatic HEAD & SCALP: normal to inspection, normocephalic and atraumatic Resp: COMMON NORMALS: normal respiratory effort and clear to auscultation bilaterally AUSCULTATION: clear to auscultation bilaterally Cardio: COMMON NORMALS: regular rate and regular rhythm RATE: regular rate RHYTHM: regular rhythm GI: COMMON NORMALS: Normal to inspection, nondistended, normoactive bowel sounds present, Soft to palpation, non-tender, No hepatosplenomegaly present and no masses INSPECTION: Yes normal to inspection PALPATION: Yes Soft to palpation and Yes No hepatosplenomegaly present : BLADDER/KIDNEY EXAM: Yes CVA tenderness on the left Back/Pelvis: COMMON NORMALS: thoracic and lumbar spine normal to inspection, no thoracic nor lumbar tenderness and thoraco-lumbar ROM normal GENERAL BACK: Yes CVA tenderness Extremity: COMMON NORMALS: normal to inspection GENERAL: Yes normal exam except as noted Neuro: LOU COMA SCALE: document GCS findings Lou coma scale eye opening: Spontaneous Lou coma scale verbal response: Orientated Baudette coma scale motor response: Obey commands Lou coma scale total score: 15 COMMON NORMALS: patient oriented x3, moves all extremities, no focal motor deficits, no sensory deficits noted and gait normal SENSORIUM/ORIENTATION: Yes alert, Yes oriented to person and Yes oriented to time Skin: COMMON NORMALS: no rashes or lesions noted GENERAL SKIN EXAM: no rashes or lesions noted Course Vital Signs: Vital signs: Vital Signs Temperature 97.8 F 04/24/22 14:12 Pulse Rate 85 04/24/22 14:12 Respiratory Rate 16 04/24/22 15:39 Blood Pressure 128/84 04/24/22 14:12 Pulse Oximetry 100 04/24/22 14:12 MDM - Female Medical Decision Making Patient CT scan does not show any obstructing renal or ureter calculi. She does have chronic left calyceal calculi unchanged from previous exams. CT was otherwise normal. Her vital signs are stable. She has a normal white count. Chemistry panel is unremarkable. UA is negative. I suspect her symptoms are secondary to some left renal colic. We will have her follow-up with Dr. Simpson who she has seen previously. We will treat her with pain/nausea medications. Return to ED precautions given. Lab Data : 04/24/22 15:02 04/24/22 15:02 Radiology Impressions Abdomen/Pelvis CT 04/24/22 14:44 IMPRESSION: 1. No obstructing renal or ureteral calculi. 2. Nonobstructing tiny subcentimeter LEFT calyceal calculi unchanged from previous. 3. Prominent urinary distention of the bladder. 4. Multifollicular ovaries bilaterally. 5. Prominent uterus with thickened endometrium. 6. No free fluid in the pelvis. 7. Rectosigmoid constipation. Laboratory Results WBC 7.4 10^3/uL (4.0-10.0) 04/24/22 15:02 RBC 4.89 10^6/uL (4.1-5.3) 04/24/22 15:02 Hgb 15.6 g/dL (11.5-15.3) H 04/24/22 15:02 Hct 45.0 % (37.0-47.0) 04/24/22 15:02 MCV 92.0 fl (81-99) 04/24/22 15:02 MCH 31.9 pg (28.0-34.0) 04/24/22 15:02 MCHC 34.7 g/dL (30.0-36.0) 04/24/22 15:02 RDW 11.9 % (12.1-15.1) L 04/24/22 15:02 Plt Count 261 10^3/cmm (130-400) 04/24/22 15:02 MPV 9.4 fL (7.4-10.4) 04/24/22 15:02 Neut % (Auto) 73.0 % 04/24/22 15:02 Lymph % (Auto) 20.6 % 04/24/22 15:02 [place] % (Auto) 4.6 % 04/24/22 15:02 Eos % (Auto) 1.4 % 04/24/22 15:02 Baso % (Auto) 0.3 % 04/24/22 15:02 Neut # (Auto) 5.40 10^3/uL (1.8-7.7) 04/24/22 15:02 Lymph # (Auto) 1.5 10^3/uL (0.8-4.8) 04/24/22 15:02 [place] # (Auto) 0.3 10^3/uL (0.2-0.9) 04/24/22 15:02 Eos # (Auto) 0.1 10^3/uL (0.0-0.8) 04/24/22 15:02 Baso # (Auto) 0.0 10^3/uL (0.0-0.1) 04/24/22 15:02 Nucleated RBC % (auto) 0 % 04/24/22 15:02 Nucleated RBCs # 0.0 /100WBC 04/24/22 15:02 Sodium 139 mmol/L (136-145) 04/24/22 15:02 Potassium 3.8 mmol/L (3.5-5.1) 04/24/22 15:02 Chloride 101 mmol/L (98-107) 04/24/22 15:02 Carbon Dioxide 24 mmol/L (22-29) 04/24/22 15:02 Anion Gap 17.8 (5-19) 04/24/22 15:02 BUN 9 mg/dL (6-20) 04/24/22 15:02 Creatinine 0.6 mg/dL (0.5-0.9) 04/24/22 15:02 GFR Calculation 116.6 mL/min (90-130) 04/24/22 15:02 Glucose 95 mg/dL (65-115) 04/24/22 15:02 Calculated Osmolality 286 mOsm/kg (285-295) 04/24/22 15:02 Calcium 9.9 mg/dL (8.5-10.5) 04/24/22 15:02 Total Bilirubin 0.5 mg/dL (0.15-1.2) 04/24/22 15:02 AST 15 U/L (0-32) 04/24/22 15:02 ALT 8 U/L (0-33) 04/24/22 15:02 Alkaline Phosphatase 49 IU/L (35-105) 04/24/22 15:02 Total Protein 8.9 g/dL (6.6-8.7) H 04/24/22 15:02 Albumin 5.5 g/dL (3.5-5.2) H 04/24/22 15:02 Globulin 3.4 g/dL (1.3-4.6) 04/24/22 15:02 HCG, Qual Negative (Negative) 04/24/22 15:30 Urine Color Yellow (Yellow) 04/24/22 15:02 Urine Appearance Clear (CLEAR) 04/24/22 15:02 Urine pH 6 (5-7) 04/24/22 15:02 Ur Specific [place] 1.015 (1.005-1.030) 04/24/22 15:02 Urine Protein Neg (Negative) 04/24/22 15:02 Urine Glucose (UA) Norm (Normal) 04/24/22 15:02 Urine Ketones Negative (Negative) 04/24/22 15:02 Urine Blood Neg (Negative) 04/24/22 15:02 Urine Nitrate Negative (Negative) 04/24/22 15:02 Urine Bilirubin 1+ (Negative) H 04/24/22 15:02 Urine Urobilinogen Norm mg/dL (Negative) 04/24/22 15:02 Ur Leukocyte Esterase Negative (Negative) 04/24/22 15:02 Discharge Plan Discharge Patient Disposition: Home Clinical Impression: Renal colic on left side Condition: Stable Prescriptions: New hydrocodone-acetaminophen 5-325 mg tablet 1 tab PO Q6H PRN (Reason: pain) Qty: 14 0RF ondansetron 4 mg tablet,disintegrating 4 mg PO Q8H PRN (Reason: nausea and vomiting) Qty: 14 0RF No Action venlafaxine [Effexor XR] 37.5 mg capsule,extended release 24hr 37.5 mg PO DAILY Qty: 30 0RF duloxetine [Cymbalta] 30 mg capsule,delayed release(DR/EC) 30 mg PO DAILY Qty: 30 2RF trazodone 100 mg tablet 200 mg PO .HS PRN (Reason: insomnia) Qty: 60 2RF Discharge Orders: Discharge ED (Routine); Ordered 04/24/22 Ordered By: Nettie Humphrey Referrals: Adonay Pennington MD [Primary Care Provider] - Patient Instructions: Kidney Stones (ED), Renal Colic (ED), Opioid Safety Coding Level of Care Code ED Certified Ophthalmic Assistant for Zenaida Hairston
[2022-04-24 15:17] LABS: Add Urine Microscopic? NO; Charge for UA Resulting for Rev
[2022-04-24 15:18] LABS: Basophils % 0.3 %; Eosinophils # 0.1 10^3/uL (0.0-0.8); Eosinophils % 1.4 %; Hemoglobin 15.6 g/dL (11.5-15.3); Lymphocytes # 1.5 10^3/uL (0.8-4.8); Lymphocytes % 20.6 %; Mean Corpuscular HGB Conc 34.7 g/dL (30.0-36.0); Mean Corpuscular Hemoglobin 31.9 pg (28.0-34.0); Mean Platelet Volume 9.4 fL (7.4-10.4); Monocytes # 0.3 10^3/uL (0.2-0.9); Monocytes % 4.6 %; Nucleated Red Blood Cells % 0 %; Platelet Count 261 10^3/cmm (130-400); Red Blood Count 4.89 10^6/uL (4.1-5.3); Red Cell Distribution Width 11.9 % (12.1-15.1); White Blood Count 7.4 10^3/uL (4.0-10.0)
[2022-04-24 15:23] LABS: Bilirubin Urine 1+ (Negative); Blood Urine Neg (Negative); Glucose Urine UA Norm (Normal); Ketones Urine Negative (Negative); Leukocyte Esterase Urine Negative (Negative); Nitrate Urine Negative (Negative); Protein Urine Neg (Negative); Specific Gravity, Urine 1.015 (1.005-1.030); Urine Appearance Clear (CLEAR); Urine Color Yellow (Yellow); Urobilinogen Urine Norm (Negative); pH Urine 6 (5-7)
[2022-04-24 15:36] LABS: Alanine Aminotransferase 8 U/L (0-33); Albumin Level 5.5 g/dL (3.5-5.2); Alkaline Phosphatase 49 IU/L (35-105); Anion Gap 17.8 (5-19); Aspartate Amino Transferase 15 U/L (0-32); Blood Urea Nitrogen 9 mg/dL (6-20); Calcium 9.9 mg/dL (8.5-10.5); Carbon Dioxide 24 mmol/L (22-29); Chloride 101 mmol/L (98-107); Globulin 3.4 g/dL (1.3-4.6); Glomerular Filtration Rate 116.6 mL/min (90-130); Glucose 95 mg/dL (65-115); Osmolality Calculated 286 mOsm/kg (285-295); Potassium 3.8 mmol/L (3.5-5.1); Sodium 139 mmol/L (136-145); Total Bilirubin 0.5 mg/dL (0.15-1.2); Total Protein 8.9 g/dL (6.6-8.7)
[2022-04-24 15:39] VITALS: RESP 16
[2022-04-24] MEDS: morphine 4 mg/mL SDV 1 mL IVP (15:39)
[2022-04-24] MEDS: sodium chloride 0.9% 1,000 ML 999 ML IV (15:40)
[2022-04-24] MEDS: ondansetron 2 mg/ML SDV 2 mL 4 MG IVP (15:40)
[2022-04-24 15:57] LABS: HCG, Serum Qual Negative (Negative)
--- NOTE | 2022-04-27 15:38 | DCPLANNER ---
Addendum entered by Michelle Szymanski 05/11/22 18:19: Patient had a follow up appointment scheduled for 04.29.22 with urology - patient did attend appointment. Original Note: manager in home had message to schedule a follow up appointment for patient with urology. manager in home sent patients information to the front office staff at urology. Patients information will be printed and reviewed. Clinic will call patient with appointment information.
== END 2022-04-24 16:34 | disposition home or self-care (01) ==
PROVIDERS: Emergency Provider Physician Assistant; PCP Family Medicine
DX: N23 Unspecified renal colic (principal)
CPT/HCPCS: 74176; 80053; 81003; 84703; 85025; 96374; 96375; 99284; J2270; J2405; J7030

== ENCOUNTER 2022-04-29 12:33 | Outpatient (CLI) | payer OTHER, BC, MEDICAID, SELFPAY ==
--- NOTE | 2022-04-29 12:30 | XR_ITS ---
WS: [id number] KUB, AP view, 04/29/2022 Clinical Data: Kidney Stone Comparison: KUB, 07/03/2021. Findings: No abnormal intraabdominal masses or calcifications are seen. There is no dilatated small bowel or ev idence of obstruction. There is a large amount of fecal material throughout the colon which obscures detail over the left ki dney. There are clips in the right upper quadrant from a cholecystectomy. XR/XR KUB [id number] Impression: Negative KUB.
== END 2022-04-29 12:34 | disposition home or self-care (01) ==
LOC: RAD 12:33
PROVIDERS: PCP Family Medicine; Visit Provider Nurse Practitioner Family
DX: N23 Unspecified renal colic (principal); N39.0 Urinary tract infection, site not specified
CPT/HCPCS: 74018; 81003; 87086

== ENCOUNTER 2022-08-19 10:51 | Emergency (ER) | payer BC, MEDICAID, SELFPAY ==
[2022-08-19] VITALS (8 sets, daily range): BP systolic 111–138; BP diastolic 68–91; PULSE 87–128; RESP 16–18; TEMP 36.6; O2SAT 100; BMI 21.2
--- NOTE | 2022-08-19 11:38 | ED_ITS ---
HPI - Female Genitourinary General: Chief complaint: Urogenital-Female Stated complaint: abd pain/back pains Time Seen by Provider: 08/19/22 11:30 Source: patient and family Mode of arrival: ambulatory Limitations: no limitations History of Present Illness: This patient comes to the emergency department with left flank pain that began last evening and continues today. She states the pain begins in her left back left abdomen and radiates down to her left groin. She states is very similar to pain she is experienced in the past when she had a kidney stone. She has had 2 known kidney stones in the past last summer in a year prior with the latter of the 2 requiring urologic intervention. She denies any fevers. She denies any back injury. She denies numbness weakness etc. She dates her urine does not appear normal in color appears to be pinkish in tinge. Her last menstrual period was last week. She had a prior appendectomy as well as a cholecystectomy as well as lysis of adhesions from endometriosis. No known exposure to infectious disease no diarrhea. Has been nauseated and vomited. Location of symptoms: flank Severity: moderate Female Urogenital Radiation: LLQ Quality of pain: sharp and aching Consistency: progressively worsening Vaginal discharge: none Vaginal bleeding: none Urinary symptoms: Hematuria Associated symptoms: Reports abdominal pain and nausea; Deny headache(s) or vaginal discharge Treatment prior to arrival: NSAIDs Patient : No Date of Last Menstrual Period: 08/14/22 Review of Systems Const: Denies: fever(s) or chills Eyes: Denies: change in vision ENMT: Denies: throat pain, odynophagia, nasal discharge or nasal congestion Card: Denies: chest pain or palpitations Resp: Denies: dyspnea, productive cough or non-productive cough GI: Reports: abdominal pain, nausea and vomiting : Reports: flank pain and hematuria; Denies: vaginal bleeding or vaginal discharge Musc: Reports: back pain; Denies: neck pain, extremity pain or extremity swelling Skin/Breast: Denies: rash or pruritus Neuro: Denies: headache(s), numbness in extremities or weakness in extremities Lb/Lymph: Denies: easy bruising or easy bleeding PFSH ED PFSH: Medical History Endometriosis determined by laparoscopy (~2013) Initially diagnosed with endometriosis in 2013 by laparoscopy. 09/03/2020: Laparoscopy with cauterization of endometriosis History of PID (~2017) Migraine Nausea and vomiting Psychiatric care Recurrent UTI Renal stones Multiple small stones left kidney Surgical History H/O laparoscopy 2013--ov cyst removal; caut of endometriosis 2014-- cautery of endometriosis H/O tubal ligation (09/03/20) Laparoscopic bilateral complete salpingectomy, cauterization of pelvic peritoneal endometriosis. Performed by Dr. Rich at [facility] in [place], [place] History of appendectomy (~2017) laparosopic History of cholecystectomy (~2011) Laparoscopic Family History Mother Hyperlipidemia Hypertension Family history of thyroid problem Social History Smoking and tobacco status: never smoked Second hand smoke exposure: Yes Alcohol intake: former Former alcohol use details: Social before Marital status: Current occupational status: employed History of recent travel: No Female Reproductive History: Date of last menstrual period: 08/14/22 Physical Exam Narrative: EXAM NARRATIVE: Patient is alert but appears to be uncomfortable and answers questions in a goal-directed and fluent fashion. Const: COMMON NORMALS: average body habitus, patient oriented x3 and healthy appearing GENERAL APPEARANCE: in distress HENMT: COMMON NORMALS: normocephalic, Normal nasal mucous membranes and turbinates present and moist oral mucous membranes HEAD & SCALP: normocephalic NOSE: Normal nasal mucous membranes and turbinates present Eye: COMMON NORMALS: Equal, round and reactive pupils present, EOMs intact bilaterally and conjunctivae normal CONJUNCTIVA: Yes conjunctivae normal PUPIL: Yes Equal, round and reactive pupils present Neck/C-Spine: COMMON NORMALS: full ROM and no lymphadenopathy Resp: COMMON NORMALS: normal respiratory effort, No retractions, No use of accessory muscles and clear to auscultation bilaterally AUSCULTATION: clear to auscultation bilaterally Cardio: COMMON NORMALS: regular rate, regular rhythm, No murmurs present (Cardio) and Peripheral pulses 2+ throughout RATE: regular rate RHYTHM: regular rhythm PERIPHERAL PULSES: Peripheral pulses 2+ throughout GI: INSPECTION: Yes normal to inspection PALPATION: Yes Guarding due to palpation present (GI) (Left flank left lower abdomen) : BLADDER/KIDNEY EXAM: Yes CVA tenderness on the left Back/Pelvis: COMMON NORMALS: thoracic and lumbar spine normal to inspection, thoraco-lumbar ROM normal and straight leg raise negative bilaterally GENERAL BACK: Yes CVA tenderness THORACIC SPINE/UPPER BACK: Yes paraspinal muscle tenderness Thoracic paraspinal muscle tenderness: left Extremity: COMMON NORMALS: normal to inspection, full ROM and capillary refill normal Neuro: COMMON NORMALS: patient oriented x3, moves all extremities, no focal motor deficits and no sensory deficits noted Skin: COMMON NORMALS: no rashes or lesions noted, no wounds and turgor normal GENERAL SKIN EXAM: no rashes or lesions noted and turgor normal Course Reevaluation(s): Reevaluation #1: Patient is improved. Pain is controlled and she is tolerating fluids. No emesis etc. No new or focal findings on repeat examination. Renal ultrasound was reassuring and therefore will be sent home on antibiotics and pain control with close follow-up. She voiced understanding the plan of care. Her words were this is not her first time of having the symptoms . Time: 16:13 Vital Signs: Vital signs: Vital Signs Temperature 97.8 F 08/19/22 11:10 Pulse Rate 100 08/19/22 15:45 Respiratory Rate 18 08/19/22 15:45 Blood Pressure 119/84 08/19/22 15:45 Pulse Oximetry 100 08/19/22 15:45 Oxygen Delivery Me thod 08/19/22 14:29 MDM - Female Medical Decision Making Patient presented to our emergency department with left flank pain very similar to that she is experienced with ureterolithiasis in the past. Her work-up today was reassuring and that there was no evidence of hydronephrosis and she had preserved renal function on testing today. She did have hematuria with no bact eria but minimal pyuria. Her symptoms are controlled in the emergency department. No evidence of overwhelming infection or other ongoing emergency medical condition at this time. She is being discharged on a 5-day course of cephalexin as well as antispasmodics with follow-up and return precautions discussed. Medical Records I reviewed the patient's medical records. Patient with left flank pain consistent with prior episodes of similar symptoms associated with renal lithiasis. Symptoms were controlled with analgesics in the emergency department. Her renal ultrasound did not show any evidence of hydronephrosis, renal abscess or other concerning findings at this time. She did have hematuria with minimal pyuria and actually no bacteria in her urine however we will put her on a 5-day course of antibiotics in addition to analgesics and follow her response. She is clinically stable without any evidence of other ongoing emergency medical conditions at this time. She vocalized understanding the plan of care. Lab Data I reviewed the patient's lab results. : 08/19/22 11:43 08/19/22 11:43 Radiology Impressions Renal Ultrasound 08/19/22 13:01 IMPRESSION: Normal renal ultrasound Laboratory Results WBC 8.5 10^3/uL (4.0-10.0) 08/19/22 11:43 RBC 4.37 10^6/uL (4.1-5.3) 08/19/22 11:43 Hgb 14.0 g/dL (11.5-15.3) 08/19/22 11:43 Hct 40.3 % (37.0-47.0) 08/19/22 11:43 MCV 92.2 fl (81-99) 08/19/22 11:43 MCH 32.0 pg (28.0-34.0) 08/19/22 11:43 MCHC 34.7 g/dL (30.0-36.0) 08/19/22 11:43 RDW 11.6 % (12.1-15.1) L 08/19/22 11:43 Plt Count 214 10^3/cmm (130-400) 08/19/22 11:43 MPV 9.2 fL (7.4-10.4) 08/19/22 11:43 Neut % (Auto) 74.5 % 08/19/22 11:43 Lymph % (Auto) 17.6 % 08/19/22 11:43 [place] % (Auto) 5.4 % 08/19/22 11:43 Eos % (Auto) 1.9 % 08/19/22 11:43 Baso % (Auto) 0.2 % 08/19/22 11:43 Neut # (Auto) 6.32 10^3/uL (1.8-7.7) 08/19/22 11:43 Lymph # (Auto) 1.5 10^3/uL (0.8-4.8) 08/19/22 11:43 [place] # (Auto) 0.5 10^3/uL (0.2-0.9) 08/19/22 11:43 Eos # (Auto) 0.2 10^3/uL (0.0-0.8) 08/19/22 11:43 Baso # (Auto) 0.0 10^3/uL (0.0-0.1) 08/19/22 11:43 Nucleated RBC % (auto) 0 % 08/19/22 11:43 Nucleated RBCs # 0.0 /100WBC 08/19/22 11:43 Sodium 136 mmol/L (136-145) 08/19/22 11:43 Potassium 2.9 mmol/L (3.5-5.1) L 08/19/22 11:43 Chloride 103 mmol/L (98-107) 08/19/22 11:43 Carbon Dioxide 22 mmol/L (22-29) 08/19/22 11:43 Anion Gap 13.9 (5-19) 08/19/22 11:43 BUN 10 mg/dL (6-20) 08/19/22 11:43 Creatinine 0.7 mg/dL (0.5-0.9) 08/19/22 11:43 GFR Calculation 97.6 mL/min (90-130) 08/19/22 11:43 Glucose 83 mg/dL (65-115) 08/19/22 11:43 Calculated Osmolality 280 mOsm/kg (285-295) L 08/19/22 11:43 Calcium 9.6 mg/dL (8.5-10.5) 08/19/22 11:43 Total Bilirubin 0.6 mg/dL (0.15-1.2) 08/19/22 11:43 AST 12 U/L (0-32) 08/19/22 11:43 ALT 7 U/L (0-33) 08/19/22 11:43 Alkaline Phosphatase 44 U/L (35-105) 08/19/22 11:43 Total Protein 8.0 g/dL (6.6-8.7) 08/19/22 11:43 Albumin 4.9 g/dL (3.5-5.2) 08/19/22 11:43 Globulin 3.1 g/dL (1.3-4.6) 08/19/22 11:43 HCG, Qual Negative (Negative) 08/19/22 11:43 Urine Color Red (Yellow) 08/19/22 11:43 Urine Appearance Cloudy (CLEAR) A 08/19/22 11:43 Urine pH 5 (5-7) 08/19/22 11:43 Ur Specific [place] 1.010 (1.005-1.030) 08/19/22 11:43 Urine Protein 1+ (Negative) H 08/19/22 11:43 Urine Glucose (UA) Norm (Normal) 08/19/22 11:43 Urine Ketones 1+ (Negative) H 08/19/22 11:43 Urine Blood 3+ (Negative) H 08/19/22 11:43 Urine Nitrate Negative (Negative) 08/19/22 11:43 Urine Bilirubin Neg (Negative) 08/19/22 11:43 Urine Urobilinogen Norm mg/dL (Negative) 08/19/22 11:43 Ur Leukocyte Esterase Negative (Negative) 08/19/22 11:43 Urine RBC Too numerous to cnt /hpf (0-2) H 08/19/22 11:43 Urine WBC 0-4 /hpf (0-5) H 08/19/22 11:43 Ur Squamous Epith Cells 0-4 /hpf (0-5) H 08/19/22 11:43 Amorphous Sediment Not Reportable 08/19/22 11:43 Urine Bacteria None /hpf (NONE) 08/19/22 11:43 Discharge Plan Discharge Patient Disposition: Home Clinical Impression: Renal colic on left side Condition: Stable Prescriptions: New Levsin 0.125 mg tablet 0.125 mg PO Q6H PRN (Reason: spasms) Qty: 30 0RF cephalexin 500 mg capsule 500 mg PO TID 5 Days Qty: 15 0RF No Action omeprazole 40 mg capsule,delayed release(DR/EC) 40 mg PO DAILY Qty: 30 1RF Rx Instructions: for stomach discomfort ketorolac 30 mg/mL solution 60 mg IM ONCE Qty: 2 0RF gabapentin 300 mg capsule 300 mg PO TID tramadol 50 mg tablet 50 mg PO Q6H PRN (Reason: pain) 5 Days Qty: 20 0RF cyclobenzaprine 5 mg tablet 5 mg PO TID PRN (Reason: muscle spasm) Qty: 30 2RF ondansetron 4 mg tablet,disintegrating 4 mg PO Q8H PRN (Reason: nausea and vomiting) Qty: 14 0RF Discharge Orders: Discharge ED (Routine); Ordered 08/19/22 Ordered By: Christiano Hancock Referrals: Adonay Pennington MD [Primary Care Provider] - 2 weeks Discharge Diet: Usual diet Discharge Activity: Resume usual activity Patient Instructions: Abdominal Pain (ED), Opioid Safety, Pain Management Activity Restrictions/Additional Instructions: We have prescribed medication for your renal colic to include antispasmodics and antibiotics. Take those as prescribed. Make sure you are drinking at least 2 quarts of water daily. If you develop high fevers, worsening pain or any other concerns return to this emergency department for reevaluation. Follow-up with your doctor in 2 weeks for reevaluation if necessary Coding Level of Care Code ED Egg Separator for Zenaida Fwd Exam Comprehensive
[2022-08-19 12:02] LABS: Basophils % 0.2 %; Eosinophils # 0.2 10^3/uL (0.0-0.8); Eosinophils % 1.9 %; Hematocrit 40.3 % (37.0-47.0); Lymphocytes # 1.5 10^3/uL (0.8-4.8); Lymphocytes % 17.6 %; Mean Corpuscular HGB Conc 34.7 g/dL (30.0-36.0); Mean Corpuscular Volume 92.2 fl (81-99); Mean Platelet Volume 9.2 fL (7.4-10.4); Monocytes # 0.5 10^3/uL (0.2-0.9); Monocytes % 5.4 %; Neutrophils # 6.32 10^3/uL (1.8-7.7); Neutrophils % 74.5 %; Nucleated Red Blood Cells % 0 %; Platelet Count 214 10^3/cmm (130-400); Red Blood Count 4.37 10^6/uL (4.1-5.3); Red Cell Distribution Width 11.6 % (12.1-15.1); White Blood Count 8.5 10^3/uL (4.0-10.0)
[2022-08-19] MEDS: ondansetron 2 mg/ML SDV 2 mL 4 MG IVP (12:02)
[2022-08-19] MEDS: ketorolac 30 mg/mL INJ IM (12:02)
[2022-08-19] MEDS: morphine 4 mg/mL SDV 1 mL IVP ×2 (12:02→15:42)
[2022-08-19] MEDS: sodium chloride 0.9% 1,000 ML 999 ML IV (12:06)
[2022-08-19 12:08] LABS: HCG Qualitative Urine. Negative (Negative)
[2022-08-19 12:22] LABS: Alanine Aminotransferase 7 U/L (0-33); Albumin Level 4.9 g/dL (3.5-5.2); Alkaline Phosphatase 44 U/L (35-105); Anion Gap 13.9 (5-19); Aspartate Amino Transferase 12 U/L (0-32); Blood Urea Nitrogen 10 mg/dL (6-20); Calcium 9.6 mg/dL (8.5-10.5); Carbon Dioxide 22 mmol/L (22-29); Chloride 103 mmol/L (98-107); Globulin 3.1 g/dL (1.3-4.6); Glomerular Filtration Rate 97.6 mL/min (90-130); Glucose 83 mg/dL (65-115); Osmolality Calculated 280 mOsm/kg (285-295); Sodium 136 mmol/L (136-145); Total Bilirubin 0.6 mg/dL (0.15-1.2)
[2022-08-19 12:28] LABS: Potassium 2.9 mmol/L (3.5-5.1)
[2022-08-19 12:45] LABS: Add Urine Microscopic? YES; Bilirubin Urine Neg (Negative); Blood Urine 3+ (Negative); Glucose Urine UA Norm (Normal); Ketones Urine 1+ (Negative); Leukocyte Esterase Urine Negative (Negative); Nitrate Urine Negative (Negative); Protein Urine 1+ (Negative); Urine Appearance Cloudy (CLEAR); Urine Color Red (Yellow); Urobilinogen Urine Norm (Negative); pH Urine 5 (5-7)
[2022-08-19 12:46] LABS: Add Urine Culture? Yes; RBC Urine TOO NUMEROUS TO CNT /hpf (0-2); Squamous Epithelial Cell Urine 0-4 /hpf (0-5); WBC Urine 0-4 /hpf (0-5)
--- NOTE | 2022-08-19 13:01 | US_ITS ---
WS: [id number] ULTRASOUND RENAL TECHNIQUE: Ultrasound examination of both kidneys. CLINICAL INFORMATION: left flank pain COMPARISON: None. FINDINGS: RIGHT: Right kidney is normal in size and appearance. Echogenicity: Normal. Cortical thickness: 1.2 cm; Normal. Hydronephrosis: None. Perinephric fluid: None. Right kidney measures: 11.0 cm x 4.7 cm x 5.3 cm. LEFT: Left kidney is normal in size and appearance. Echogenicity: Normal. Cortical thickness: 1.3 cm; Normal. Hydronephrosis: None. Perinephric fluid: None. Left kidney measures: 10.8 cm x 4.6 cm x 4.7 cm. Normal visualized aorta. Normal bladder. US/US renal BI* [id number] IMPRESSION: Normal renal ultrasound
[2022-08-19] MEDS: potassium bicarb 25 mEq Tablet 50 MEQ PO (13:15)
[2022-08-19] MEDS: hyoscyamine ODT 0.125 mg Tablet 0.25 MG PO (15:41)
[2022-08-19] MEDS: ceFAZolin 1,000 MG in sodium chloride 0.9% (plus) 50 ML 100 MG IV (15:42)
== END 2022-08-19 16:36 | disposition home or self-care (01) ==
PROVIDERS: Emergency Provider Emergency Medicine; PCP Family Medicine
DX: N23 Unspecified renal colic (principal); Z77.22 Contact with and (suspected) exposure to environmental tobacco smoke (acute) (chronic); Z87.442 Personal history of urinary calculi
CPT/HCPCS: 76770; 80053; 81001; 81025; 85025; 87077; 87086; 87186; 96365; 96372; 96375; 96376; 99285; J0690; J1885; J2270; J2405; J7030

== ENCOUNTER → 2022-08-24 15:28 | Outpatient (BNVA) | payer BC, MEDICAID, SELFPAY | PROVIDERS: PCP Family Medicine; Visit Provider Registered Nurse | DX: N20.0 Calculus of kidney (principal); E87.6 Hypokalemia | CPT/HCPCS: 80053; 81000 ==

== ENCOUNTER → 2022-09-29 13:55 | Outpatient (BNVA) | payer BC, MEDICAID, SELFPAY | PROVIDERS: PCP Family Medicine; Visit Provider Registered Nurse | DX: J11.1 Influenza due to unidentified influenza virus with other respiratory manifestations (principal); R68.89 Other general symptoms and signs | CPT/HCPCS: 87400; 87426 ==

== ENCOUNTER → 2022-10-02 09:00 | Outpatient (BNVA) | payer BC, MEDICAID, SELFPAY | PROVIDERS: PCP Family Medicine; Visit Provider Registered Nurse | DX: R50.9 Fever, unspecified (principal) | CPT/HCPCS: 87400; 87426 ==

== ENCOUNTER 2023-01-07 16:41 | Emergency (ER) | payer BC, MEDICAID, SELFPAY ==
[2023-01-07 17:00] VITALS: BP 151/101; PULSE 86; RESP 14; TEMP 36.7; O2SAT 100; BMI 21.2
--- NOTE | 2023-01-07 18:23 | W.ED.FEMALGU ---
HPI - Female Genitourinary General: Chief complaint: Urogenital-Female Stated complaint: pelvic pain Time Seen by Provider: 01/07/23 18:23 History of Present Illness: Ms. Daniel is a 32-year-old lady with history of tubal ligation presenting to the emergency department for right lower pelvic pain and abnormal vaginal bleeding. She reports being at her baseline health and symptoms started subacutely without known specific provoking event 2 days ago. Initially had lower pelvic pain associated with clots and dark red bleeding which resolved however has recurred today. Intensity is moderate. No other specific changes in health, exacerbating, or alleviating factors identified. Patient had expected normal period earlier this month. This is heavier than a typical period. Onset (ago): day(s) Consistency: constant Vaginal discharge: none Vaginal bleeding: moderate Exacerbating factors: none Relieving factors: none Associated symptoms: Reports no associated symptoms Review of Systems General: Reports: 10 or more systems reviewed and unremarkable except in HPI and below PFSH ED PFSH: Medical History Endometriosis determined by laparoscopy (~2013) Initially diagnosed with endometriosis in 2013 by laparoscopy. 09/03/2020: Laparoscopy with cauterization of endometriosis History of PID (~2017) Migraine (~10/22/22) Nausea and vomiting Recurrent UTI Renal stones Multiple small stones left kidney Urolithiasis Surgical History H/O laparoscopy 2013--ov cyst removal; caut of endometriosis 2014-- cautery of endometriosis H/O tubal ligation (09/03/20) Laparoscopic bilateral complete salpingectomy, cauterization of pelvic peritoneal endometriosis. [place] [facility] [place] History of appendectomy (~2017) laparosopic History of bilateral breast reduction surgery History of cholecystectomy (~2011) Laparoscopic Family History Mother Hyperlipidemia Hypertension Family history of thyroid problem Social History Smoking and tobacco status: never smoked Second hand smoke exposure: Yes Alcohol intake: former Former alcohol use details: Social before Marital status: Current occupational status: employed Physical Exam Const: COMMON NORMALS: alert GENERAL APPEARANCE: cooperative and well developed HENMT: COMMON NORMALS: normocephalic and atraumatic HEAD & SCALP: normocephalic and atraumatic THROAT: posterior oropharynx normal Eye: COMMON NORMALS: conjunctivae normal CONJUNCTIVA: Yes conjunctivae normal SCLERA: sclerae normal Neck/C-Spine: COMMON NORMALS: supple GENERAL: Yes trachea midline Resp: COMMON NORMALS: normal respiratory effort EFFORT & INSPECTION: Yes able to speak in complete sentences Cardio: COMMON NORMALS: regular rate and regular rhythm RATE: regular rate RHYTHM: regular rhythm GI: COMMON NORMALS: Soft to palpation PALPATION: Yes Soft to palpation and No Tenderness to palpation present (GI) : OTHER: Pelvic exam performed with tank hoop bender present. Extremity: GENERAL: Yes normal exam except as noted and No edema Neuro: COMMON NORMALS: moves all extremities SENSORIUM/ORIENTATION: Yes alert and No Orientation impaired Psych: COMMON NORMALS: mental status grossly normal and Normal thought process present THOUGHT PROCESS: Normal thought process present Course Vital Signs: Vital signs: Vital Signs Temperature 98.0 F 01/07/23 21:40 Pulse Rate 84 01/07/23 21:40 Respiratory Rate 14 01/07/23 21:40 Blood Pressure 125/81 01/07/23 21:40 Pulse Oximetry 99 01/07/23 21:40 Oxygen Delivery Me thod 01/07/23 19:40 MDM - Female Medical Decision Making 32-year-old lady presenting to the emergency department for abnormal uterine bleeding. Exam as above. Vitally satisfactory and nontoxic in appearance. Labs notable for no leukocytosis, normal hemoglobin and platelet count. Metabolic panel with minimal hypokalemia, hematuria and urinalysis likely contamination. hCG is negative. Ultrasound demonstrates possible intramural or submucosal fibroid versus other lesion at the uterine fundus. No other acute abnormality identified. Negative wet prep. Exact etiology of patient's symptoms is unclear, may be related to submucosal/intramural lesion. Plan for PROGRAMMING EQUIPMENT OPERATOR follow-up. The results of ED evaluation were discussed with the patient including prescriptions and/or symptomatic cares (if applicable) including appropriate and responsible use, followup plan, and return precautions. The patient verbalized understanding and felt safe for discharge. Medical Records I reviewed the patient's medical records. Lab Data I reviewed the patient's lab results. 01/07/23 18:52 01/07/23 18:52 Radiology Impressions Pelvis Ultrasound 01/07/23 19:31 IMPRESSION: 1. Unremarkable 4.5 mm endometrial stripe. 2. 2.4 x 1.0 x 1.8 cm heterogeneous intramural and submucosal fibroid versus other lesion in the uterine fundus. 3. Normal ovarian perfusion bilaterally with no torsion. Laboratory Results WBC 5.4 10^3/uL (4.0-10.0) 01/07/23 18:52 RBC 3.95 10^6/uL (4.1-5.3) L 01/07/23 18:52 Hgb 12.4 g/dL (11.5-15.3) 01/07/23 18:52 Hct 35.8 % (37.0-47.0) L 01/07/23 18:52 MCV 90.6 fl (81-99) 01/07/23 18:52 MCH 31.4 pg (28.0-34.0) 01/07/23 18:52 MCHC 34.6 g/dL (30.0-36.0) 01/07/23 18:52 RDW 11.6 % (12.1-15.1) L 01/07/23 18:52 Plt Count 186 10^3/cmm (130-400) 01/07/23 18:52 MPV 9.7 fL (7.4-10.4) 01/07/23 18:52 Neut % (Auto) 57.0 % 01/07/23 18:52 Lymph % (Auto) 33.6 % 01/07/23 18:52 Stokes % (Auto) 7.1 % 01/07/23 18:52 Eos % (Auto) 1.7 % 01/07/23 18:52 Baso % (Auto) 0.4 % 01/07/23 18:52 Neut # (Auto) 3.07 10^3/uL (1.8-7.7) 01/07/23 18:52 Lymph # (Auto) 1.8 10^3/uL (0.8-4.8) 01/07/23 18:52 Stokes # (Auto) 0.4 10^3/uL (0.2-0.9) 01/07/23 18:52 Eos # (Auto) 0.1 10^3/uL (0.0-0.8) 01/07/23 18:52 Baso # (Auto) 0.0 10^3/uL (0.0-0.1) 01/07/23 18:52 Nucleated RBC % (auto) 0 % 01/07/23 18:52 Nucleated RBCs # 0.0 /100WBC 01/07/23 18:52 Sodium 139 mmol/L (136-145) 01/07/23 18:52 Potassium 3.3 mmol/L (3.5-5.1) L 01/07/23 18:52 Chloride 105 mmol/L (98-107) 01/07/23 18:52 Carbon Dioxide 24 mmol/L (22-29) 01/07/23 18:52 Anion Gap 13.3 (5-19) 01/07/23 18:52 BUN 7 mg/dL (6-20) 01/07/23 18:52 Creatinine 0.6 mg/dL (0.5-0.9) 01/07/23 18:52 GFR Calculation 115.9 mL/min (90-130) 01/07/23 18:52 Glucose 85 mg/dL (65-115) 01/07/23 18:52 Calculated Osmolality 285 mOsm/kg (285-295) 01/07/23 18:52 Calcium 8.8 mg/dL (8.5-10.5) 01/07/23 18:52 Urine Color Light yellow (Yellow) 01/07/23 18:21 Urine Appearance Clear (CLEAR) 01/07/23 18:21 Urine pH 6 (5-7) 01/07/23 18:21 Ur Specific [place] 1.015 (1.005-1.030) 01/07/23 18:21 Urine Protein Neg (Negative) 01/07/23 18:21 Urine Glucose (UA) Norm (Normal) 01/07/23 18:21 Urine Ketones Negative (Negative) 01/07/23 18:21 Urine Blood 3+ (Negative) H 01/07/23 18:21 Urine Nitrate Negative (Negative) 01/07/23 18:21 Urine Bilirubin Neg (Negative) 01/07/23 18:21 Urine Urobilinogen Neg mg/dL (Negative) 01/07/23 18:21 Ur Leukocyte Esterase Negative (Negative) 01/07/23 18:21 Urine RBC 5-10 /hpf (0-2) H 01/07/23 18:21 Urine WBC None /hpf (0-5) 01/07/23 18:21 Ur Squamous Epith Cells 0-4 /hpf (0-5) H 01/07/23 18:21 Amorphous Sediment Not Reportable 01/07/23 18:21 Urine Bacteria None /hpf (NONE) 01/07/23 18:21 Urine HCG, Qual Negative (Negative) 01/07/23 18:21 Discharge Plan Discharge Patient Disposition: Home Clinical Impression: Abnormal uterine bleeding Condition: Stable Prescriptions: No Action cyclobenzaprine 5 mg tablet 5 mg PO TID PRN (Reason: muscle spasm) Qty: 30 2RF omeprazole 40 mg capsule,delayed release(DR/EC) 40 mg PO DAILY PRN Rx Instructions: for stomach discomfort amitriptyline 10 mg tablet 10 mg PO DAILY 30 Days Qty: 30 0RF Rx Instructions: Take at bedtime Discharge Orders: Discharge ED (Routine); Ordered 01/07/23 Ordered By: Willis Torres Referrals: Adonay Pennington MD [Primary Care Provider] - Discharge Diet: Usual diet Discharge Activity: Resume usual activity Patient Instructions: Abnormal (Dysfunctional) Uterine Bleeding (ED), Opioid Safety Activity Restrictions/Additional Instructions: Thank you for visiting the emergency department. You were seen and evaluated for abnormal uterine bleeding and abdominal pain. The exact cause your symptoms is unclear however may be related to uterine fibroid. I will message case management for follow-up with PROGRAMMING EQUIPMENT OPERATOR. You may use [id number] medications such as acetaminophen and ibuprofen for pain however please do not exceed the daily recommended dosage as listed on the packaging and please keep in mind that many namebrand medications contain the same active ingredients. Please avoid these medications if previously instructed to do so by another physician due to other underlying medical condition. I will also prescribe oxycodone for pain not controlled by [id number] medications. Use this cautiously as discussed. Return to the emergency department for uncontrolled pain, fainting, lightheadedness, shortness of breath, chest pain, soaking through more than 2 pads per hour, or anything else that you are concerned about and feel needs emergency department evaluation. Ultrasound notes 2.4 x 1.0 x 1.8 cm heterogeneous intramural and submucosal fibroid versus other lesion in the uterine fundus. This requires further evaluation by PROGRAMMING EQUIPMENT OPERATOR. Coding Level of Care Code ED Precision Assembly Inspector for Zenaida Hairston
[2023-01-07 19:11] LABS: Add Urine Microscopic? YES; Bilirubin Urine Neg (Negative); Blood Urine 3+ (Negative); Glucose Urine UA Norm (Normal); Ketones Urine Negative (Negative); Leukocyte Esterase Urine Negative (Negative); Nitrate Urine Negative (Negative); Protein Urine Neg (Negative); Specific Gravity, Urine 1.015 (1.005-1.030); Urine Appearance Clear (CLEAR); Urine Color Light yellow (Yellow); Urobilinogen Urine Neg (Negative); pH Urine 6 (5-7)
[2023-01-07 19:12] LABS: Add Urine Culture? No; Squamous Epithelial Cell Urine 0-4 /hpf (0-5)
[2023-01-07] MEDS: morphine 4 mg/mL SDV 1 mL IVP ×2 (19:13→20:46)
[2023-01-07] MEDS: sodium chloride 0.9% 1,000 ML 999 ML IV (19:14)
[2023-01-07 19:29] LABS: Basophils % 0.4 %; Eosinophils # 0.1 10^3/uL (0.0-0.8); Eosinophils % 1.7 %; Hematocrit 35.8 % (37.0-47.0); Hemoglobin 12.4 g/dL (11.5-15.3); Lymphocytes # 1.8 10^3/uL (0.8-4.8); Lymphocytes % 33.6 %; Mean Corpuscular HGB Conc 34.6 g/dL (30.0-36.0); Mean Corpuscular Hemoglobin 31.4 pg (28.0-34.0); Mean Corpuscular Volume 90.6 fl (81-99); Mean Platelet Volume 9.7 fL (7.4-10.4); Monocytes # 0.4 10^3/uL (0.2-0.9); Monocytes % 7.1 %; Neutrophils # 3.07 10^3/uL (1.8-7.7); Nucleated Red Blood Cells % 0 %; Platelet Count 186 10^3/cmm (130-400); Red Blood Count 3.95 10^6/uL (4.1-5.3); Red Cell Distribution Width 11.6 % (12.1-15.1); White Blood Count 5.4 10^3/uL (4.0-10.0)
--- NOTE | 2023-01-07 19:31 | USR_ITS ---
PROCEDURE INFORMATION: Exam: US Nonobstetric Pelvis; Complete Exam date and time: 01/07/2023 8:10 PM Age: 32 years old Clinical indication: Menstruation abnormalities; Excessive menstruation; With regular cycle; Pelvic pain; Prior surgery; Surgery date: 6+ months; Surgery type: HX tubal ligation 2019, HX endometriosis S/P cauterizations 2013, 2019, HX pid. [id number]-l4; Additional info: Abnormal uterine bleeding, right adnexal tenderness, eval torsion versus other TECHNIQUE: Imaging protocol: Transabdominal pelvic nonobstetric ultrasound. Complete exam. Real time ultrasound with image documentation. COMPARISON: CT kidney stone [id number] 04/24/2022 3:05 PM FINDINGS: Uterus: 9.3 x 4.1 x 5.9 cm uterus. Unremarkable 4.5 mm endometrial stripe. 2.4 x 1.0 x 1.8 cm heterogeneous intramural and submucosal fibroid versus other lesion in the uterine fundus. Right ovary/adnexa: 3.8 x 3.2 x 2.8 cm right ovary with estimated volume 17.3 cc. 0.8 cm right ovarian cyst. Left ovary/adnexa: 3.1 x 1.9 x 3.3 cm left ovary with estimated volume 10 cc. Intraperitoneal space: No intraperitoneal fluid. Urinary bladder: Normal. US/US pelvic complete* [id number] IMPRESSION: 1. Unremarkable 4.5 mm endometrial stripe. 2. 2.4 x 1.0 x 1.8 cm heterogeneous intramural and submucosal fibroid versus other lesion in the uterine fundus. 3. Normal ovarian perfusion bilaterally with no torsion.
[2023-01-07 19:40] VITALS: PULSE 88; RESP 14; O2SAT 99
[2023-01-07 19:42] VITALS: BP 130/80
[2023-01-07 19:49] LABS: Anion Gap 13.3 (5-19); Blood Urea Nitrogen 7 mg/dL (6-20); Calcium 8.8 mg/dL (8.5-10.5); Carbon Dioxide 24 mmol/L (22-29); Chloride 105 mmol/L (98-107); Creatinine Clr Calc Pharmacy 113.0764; Glomerular Filtration Rate 115.9 mL/min (90-130); Glucose 85 mg/dL (65-115); Osmolality Calculated 285 mOsm/kg (285-295); Potassium 3.3 mmol/L (3.5-5.1); Sodium 139 mmol/L (136-145)
[2023-01-07 21:40] VITALS: BP 125/81; PULSE 84; RESP 14; TEMP 36.7; O2SAT 99
== END 2023-01-07 21:41 | disposition home or self-care (01) ==
PROVIDERS: Nurse Practitioner Family; Emergency Provider Emergency Medicine; PCP Family Medicine
DX: N93.9 Abnormal uterine and vaginal bleeding, unspecified (principal)
CPT/HCPCS: 36415; 76856; 80048; 81001; 81025; 85025; 87210; 96361; 96374; 96375; 99285; J2270; J7030

== ENCOUNTER 2023-01-24 14:52 | Emergency (ER) | payer BC, MEDICAID, SELFPAY ==
[2023-01-24 15:18] VITALS: BP 137/90; PULSE 106; RESP 18; TEMP 36.6; O2SAT 99
[2023-01-24 16:45] VITALS: PULSE 79; RESP 16; O2SAT 100
--- NOTE | 2023-01-24 16:45 | PC.NURSE ---
WHILE IN LOBBY WITH PT, PT IS IN NAD. PT DOES NOT VERBALIZE ANY NEEDS AT THIS TIME.
--- NOTE | 2023-01-24 17:32 | W.ED.ABDPA2 ---
HPI - Abdominal Pain General: Chief Complaint: Abdominal Pain Stated Complaint: pelvic pain Time Seen by Provider: 01/24/23 17:27 History of Present Illness: 32-year-old female comes in today with complaints of pelvic pain. Patient has a history of endometriosis and uterine fibroids. Patient had seen CAMERA OPERATOR Dr. Stoner on 16 January and is scheduled to have laparoscopic surgery this coming . Patient came into the ER today due to inability to get control of her pain at home. Patient reports some bleeding but not pronounced. Patient appears nontoxic. Patient appears in moderate pain. Associated Symptoms: Reports nausea; Denies constipation, diarrhea, fever(s) and vomiting Review of Systems General: Reports: 10 or more systems reviewed and unremarkable except in HPI and below Const: Denies: fever(s) Card: Denies: chest pain Resp: Denies: dyspnea GI: Reports: nausea; Denies: vomiting, diarrhea or constipation : Reports: vaginal bleeding and dysmenorrhea; Denies: difficulty voiding Musc: Denies: neck pain PFSH ED PFSH: Medical History Endometriosis determined by laparoscopy (~2013) Initially diagnosed with endometriosis in 2013 by laparoscopy. 09/03/2020: Laparoscopy with cauterization of endometriosis History of PID (~2017) Migraine (~10/22/22) Nausea and vomiting Recurrent UTI Renal stones Multiple small stones left kidney Urolithiasis Surgical History H/O laparoscopy 2013--ov cyst removal; caut of endometriosis 2014-- cautery of endometriosis H/O tubal ligation (09/03/20) Laparoscopic bilateral complete salpingectomy, cauterization of pelvic peritoneal endometriosis. [place] [facility] [place] History of appendectomy (~2017) laparosopic History of bilateral breast reduction surgery History of cholecystectomy (~2011) Laparoscopic Family History Mother Hyperlipidemia Hypertension Family history of thyroid problem Social History Smoking and tobacco status: never smoked Second hand smoke exposure: Yes Alcohol intake: former Former alcohol use details: Social before Marital status: Current occupational status: employed Physical Exam Const: COMMON NORMALS: alert HENMT: COMMON NORMALS: normocephalic HEAD & SCALP: normocephalic Neck/C-Spine: COMMON NORMALS: full ROM Resp: COMMON NORMALS: normal respiratory effort and clear to auscultation bilaterally AUSCULTATION: clear to auscultation bilaterally Cardio: COMMON NORMALS: regular rate and regular rhythm RATE: regular rate RHYTHM: regular rhythm GI: COMMON NORMALS: Soft to palpation PALPATION: Yes Soft to palpation and Yes Tenderness to palpation present (GI) (Suprapubic) : COMMON NORMALS: Yes no CVA tenderness BLADDER/KIDNEY EXAM: Yes no CVA tenderness Back/Pelvis: COMMON NORMALS: no CVA tenderness and thoracic and lumbar spine normal to inspection Extremity: COMMON NORMALS: normal to inspection Neuro: SENSORIUM/ORIENTATION: Yes alert Skin: COMMON NORMALS: turgor normal GENERAL SKIN EXAM: turgor normal Course Vital Signs: Vital signs: Vital Signs Temperature 97.9 F 01/24/23 15:18 Pulse Rate 82 01/24/23 17:50 Respiratory Rate 16 01/24/23 16:45 Blood Pressure 129/86 01/24/23 17:50 Pulse Oximetry 99 01/24/23 17:50 Oxygen Delivery Me thod 01/24/23 15:18 MDM - Abdominal Pain Medical Decision Making 32-year-old female comes in today with complaints of pelvic pain. Patient reports pain is severe and she is unable to control it at home. Patient has tried acetaminophen and ibuprofen. Patient had a full work-up on 07 January with ultrasound and laboratory values that showed uterine fibroids. Patient has known history of endometriosis. Patient was then followed up on 16 January with CAMERA OPERATOR, Dr. Stoner, and is scheduled for laparoscopic surgery on the for further evaluation and treatment. Differential diagnosis includes but not limited to UTI, ovarian cyst, pain due to endometriosis, uterine fibroids. No signs of severe illness is noted. Patient was treated for her pain with hydrocodone. Laboratory values were unremarkable. No signs of significant anemia or signs of infection. Reviewed exam with patient with recommendations for treatment and follow-up. Believe the pain was caused secondary to her endometriosis. Patient reported understanding of care plan and recommendations. Lab Data 01/24/23 17:45 01/24/23 17:45 Labs/Radiology: Laboratory Results WBC 8.1 10^3/uL (4.0-10.0) 01/24/23 17:45 RBC 4.53 10^6/uL (4.1-5.3) 01/24/23 17:45 Hgb 14.1 g/dL (11.5-15.3) 01/24/23 17:45 Hct 40.7 % (37.0-47.0) 01/24/23 17:45 MCV 89.8 fl (81-99) 01/24/23 17:45 MCH 31.1 pg (28.0-34.0) 01/24/23 17:45 MCHC 34.6 g/dL (30.0-36.0) 01/24/23 17:45 RDW 11.8 % (12.1-15.1) L 01/24/23 17:45 Plt Count 252 10^3/cmm (130-400) 01/24/23 17:45 MPV 9.0 fL (7.4-10.4) 01/24/23 17:45 Neut % (Auto) 72.6 % 01/24/23 17:45 Lymph % (Auto) 18.9 % 01/24/23 17:45 [place] % (Auto) 7.2 % 01/24/23 17:45 Eos % (Auto) 0.5 % 01/24/23 17:45 Baso % (Auto) 0.4 % 01/24/23 17:45 Neut # (Auto) 5.87 10^3/uL (1.8-7.7) 01/24/23 17:45 Lymph # (Auto) 1.5 10^3/uL (0.8-4.8) 01/24/23 17:45 [place] # (Auto) 0.6 10^3/uL (0.2-0.9) 01/24/23 17:45 Eos # (Auto) 0.0 10^3/uL (0.0-0.8) 01/24/23 17:45 Baso # (Auto) 0.0 10^3/uL (0.0-0.1) 01/24/23 17:45 Nucleated RBC % (auto) 0 % 01/24/23 17:45 Nucleated RBCs # 0.0 /100WBC 01/24/23 17:45 Sodium 135 mmol/L (136-145) L 01/24/23 17:45 Potassium 3.5 mmol/L (3.5-5.1) 01/24/23 17:45 Chloride 101 mmol/L (98-107) 01/24/23 17:45 Carbon Dioxide 24 mmol/L (22-29) 01/24/23 17:45 Anion Gap 13.5 (5-19) 01/24/23 17:45 BUN 10 mg/dL (6-20) 01/24/23 17:45 Creatinine 0.6 mg/dL (0.5-0.9) 01/24/23 17:45 GFR Calculation 115.9 mL/min (90-130) 01/24/23 17:45 Glucose 90 mg/dL (65-115) 01/24/23 17:45 Calculated Osmolality 279 mOsm/kg (285-295) L 01/24/23 17:45 Calcium 9.8 mg/dL (8.5-10.5) 01/24/23 17:45 Total Bilirubin 0.5 mg/dL (0.15-1.2) 01/24/23 17:45 AST 14 U/L (0-32) 01/24/23 17:45 ALT 13 U/L (0-33) 01/24/23 17:45 Alkaline Phosphatase 53 U/L (35-105) 01/24/23 17:45 Total Protein 8.0 g/dL (6.6-8.7) 01/24/23 17:45 Albumin 5.2 g/dL (3.5-5.2) 01/24/23 17:45 Globulin 2.8 g/dL (1.3-4.6) 01/24/23 17:45 HCG, Qual Negative (Negative) 01/24/23 17:45 Urine Color Yellow (Yellow) 01/24/23 17:45 Urine Appearance Clear (CLEAR) 01/24/23 17:45 Urine pH 7 (5-7) 01/24/23 17:45 Ur Specific [place] 1.015 (1.005-1.030) 01/24/23 17:45 Urine Protein Neg (Negative) 01/24/23 17:45 Urine Glucose (UA) Norm (Normal) 01/24/23 17:45 Urine Ketones Negative (Negative) 01/24/23 17:45 Urine Blood Neg (Negative) 01/24/23 17:45 Urine Nitrate Negative (Negative) 01/24/23 17:45 Urine Bilirubin Neg (Negative) 01/24/23 17:45 Urine Urobilinogen Norm mg/dL (Negative) 01/24/23 17:45 Ur Leukocyte Esterase Negative (Negative) 01/24/23 17:45 Discharge Plan Discharge Patient Disposition: Home Clinical Impression: Pelvic pain, Endometriosis Fibroid, uterine Qualifiers: Uterine leiomyoma location: unspecified location Qualified Code(s): D25.9 - Leiomyoma of uterus, unspecified Condition: Stable Prescriptions: New hydrocodone-acetaminophen 5-325 mg tablet 1 tab PO Q8H PRN (Reason: pain (scale score 7-10)) Qty: 10 0RF ondansetron 4 mg tablet,disintegrating 4 mg PO Q8H PRN (Reason: nausea and vomiting) Qty: 10 0RF No Action cyclobenzaprine 5 mg tablet 5 mg PO TID PRN (Reason: muscle spasm) Qty: 30 2RF omeprazole 40 mg capsule,delayed release(DR/EC) 40 mg PO DAILY PRN Rx Instructions: for stomach discomfort amitriptyline 10 mg tablet 10 mg PO DAILY 30 Days Qty: 30 0RF Rx Instructions: Take at bedtime Discharge Orders: Discharge ED (Routine); Ordered 01/24/23 Ordered By: Masood Garland Referrals: Adonay Pennington MD [Primary Care Provider] - Discharge Diet: Usual diet Discharge Activity: Increase activity as tolerated Patient Instructions: Opioid Safety, Pain Management Activity Restrictions/Additional Instructions: Drink plenty of water. Use acetaminophen or ibuprofen to help control pain. Use hydrocodone for severe pain. Use ice or heat for further pain relief. Follow-up with primary care as needed. Return to ED for new concerns. Coding Level of Care Code ED Combination Worker for Zenaida Hairston
[2023-01-24] MEDS: HYDROcodone-acetaminophen 7.5-325 mg Tablet 1 TAB PO (17:37)
[2023-01-24] MEDS: ondansetron 4 MG Tablet PO (17:45)
[2023-01-24 17:50] VITALS: BP 129/86; PULSE 82; O2SAT 99
[2023-01-24 17:51] LABS: Add Urine Microscopic? NO; Charge for UA Resulting for Rev
[2023-01-24 17:55] LABS: Specific Gravity, Urine 1.015 (1.005-1.030); Urine Appearance Clear (CLEAR); Urine Color Yellow (Yellow); pH Urine 7 (5-7)
[2023-01-24 17:56] LABS: Bilirubin Urine Neg (Negative); Blood Urine Neg (Negative); Glucose Urine UA Norm (Normal); Ketones Urine Negative (Negative); Leukocyte Esterase Urine Negative (Negative); Nitrate Urine Negative (Negative); Protein Urine Neg (Negative); Urobilinogen Urine Norm (Negative)
[2023-01-24 18:14] LABS: Basophils % 0.4 %; Eosinophils % 0.5 %; Hematocrit 40.7 % (37.0-47.0); Hemoglobin 14.1 g/dL (11.5-15.3); Lymphocytes # 1.5 10^3/uL (0.8-4.8); Lymphocytes % 18.9 %; Mean Corpuscular HGB Conc 34.6 g/dL (30.0-36.0); Mean Corpuscular Hemoglobin 31.1 pg (28.0-34.0); Mean Corpuscular Volume 89.8 fl (81-99); Monocytes # 0.6 10^3/uL (0.2-0.9); Monocytes % 7.2 %; Neutrophils # 5.87 10^3/uL (1.8-7.7); Neutrophils % 72.6 %; Nucleated Red Blood Cells % 0 %; Platelet Count 252 10^3/cmm (130-400); Red Blood Count 4.53 10^6/uL (4.1-5.3); Red Cell Distribution Width 11.8 % (12.1-15.1); White Blood Count 8.1 10^3/uL (4.0-10.0)
[2023-01-24 18:36] LABS: Alanine Aminotransferase 13 U/L (0-33); Albumin Level 5.2 g/dL (3.5-5.2); Alkaline Phosphatase 53 U/L (35-105); Anion Gap 13.5 (5-19); Aspartate Amino Transferase 14 U/L (0-32); Blood Urea Nitrogen 10 mg/dL (6-20); Calcium 9.8 mg/dL (8.5-10.5); Carbon Dioxide 24 mmol/L (22-29); Chloride 101 mmol/L (98-107); Creatinine Clr Calc Pharmacy 113.0764; Globulin 2.8 g/dL (1.3-4.6); Glomerular Filtration Rate 115.9 mL/min (90-130); Glucose 90 mg/dL (65-115); Osmolality Calculated 279 mOsm/kg (285-295); Potassium 3.5 mmol/L (3.5-5.1); Sodium 135 mmol/L (136-145); Total Bilirubin 0.5 mg/dL (0.15-1.2)
[2023-01-24 18:45] LABS: HCG, Serum Qual Negative (Negative)
== END 2023-01-24 18:58 | disposition home or self-care (01) ==
PROVIDERS: Emergency Provider Nurse Practitioner Family; PCP Family Medicine
DX: N80.9 Endometriosis, unspecified (principal); D35.9 Benign neoplasm of endocrine gland, unspecified; Z77.22 Contact with and (suspected) exposure to environmental tobacco smoke (acute) (chronic)
CPT/HCPCS: 36415; 80053; 81003; 84703; 85025; 87491; 87591; 99284; Q0162

== ENCOUNTER 2023-02-18 10:44 | Day surgery (SDC) | payer BC, MEDICAID, SELFPAY ==
[2023-02-16 11:35] VITALS: BMI 22.1
[2023-02-18] VITALS (13 sets, daily range): BP systolic 99–126; BP diastolic 50–97; PULSE 68–86; RESP 16–20; TEMP 36.3–36.7; O2SAT 96–100
--- NOTE | 2023-02-18 08:31 | W.PM.OPSFHP ---
Same Day Surgery H&P Indication for Procedure/HPI DATE OF PROCEDURE: February 18, 2023 CHIEF COMPLAINT/INDICATIONFOR SURGICAL PROCEDURE: chronic dysmenorrhea, dyspareunia, menorrhagia PREOP DIAGNOSIS: chronic dysmenorrhea, menorrhagia, dyspareunia PLANNED PROCEDURE: Operation Date: 02/18/23 12:00 Proposed Procedures p Laparoscopy with fulguration or excision of endometrial lesions 63488, R10.2 -PATIENT IS ALLERGIC TO LATEX, CAUSES A RASH(Not Applicable) - Jimenez Stoner MD Medications/Allergies* Home Medications Medication Instructions Recorded Confirmed Type omeprazole 40 mg capsule,delayed 40 mg PO DAILY PRN Nausea 11/30/22 02/16/23 History release Allergies/Adverse Reactions Allergy/AdvReac Type Severity Reaction Status Date / Time latex Allergy ALGY-Rash Verified 02/16/23 11:34 metoclopramide [From Reglan] AdvReac ADR-Anxiety Verified 02/16/23 11:34 Pertinent History/Comorbid Conditions* Medical History (Updated 02/01/23 @ 00:01 by JAMIL Kim) Endometriosis determined by laparoscopy (~2013) Initially diagnosed with endometriosis in 2013 by laparoscopy. 09/03/2020: Laparoscopy with cauterization of endometriosis History of PID (~2017) Migraine (~10/22/22) Nausea and vomiting Recurrent UTI Renal stones Multiple small stones left kidney Urolithiasis Surgical History (Updated 10/22/22 @ 14:23 by KARELY Borjas) H/O laparoscopy 2013--ov cyst removal; caut of endometriosis 2014-- cautery of endometriosis H/O tubal ligation (09/03/20) Laparoscopic bilateral complete salpingectomy, cauterization of pelvic peritoneal endometriosis. [place]. Rich [place] [facility] [place], [place] History of appendectomy (~2017) laparosopic History of bilateral breast reduction surgery History of cholecystectomy (~2011) Laparoscopic Family History (Updated 12/12/19 @ 13:03 by Marybeth Clifford LPN) Hyperlipidemia Mother Family history of thyroid problem Mother Hypertension Mother Social History Smoking and tobacco status: never smoked Second hand smoke exposure: Yes Alcohol intake: former Former alcohol use details: Social before Substance/Drug Use: never Marital status: Current occupational status: employed Pertinent Exam Findings alert, oriented x 3, clear to auscultation bilaterally and regular rate & rhythm Recommendations Surgery/Procedure today Coding Level of Care Code Acute Code for Chg Fwd Diagnoses Time Spent (min) 15
--- NOTE | 2023-02-18 11:09 | ANES.PREANE2 ---
Pre-Anesthetic Assessment Height/Weight: Height 1.6 m Weight 56.699 kg Temp Pulse Resp BP Pulse Ox O2 Del Method 97.9 F 86 18 126/89 100 Room Air 02/18/23 10:57 02/18/23 10:57 02/18/23 10:57 02/18/23 10:57 02/18/23 10:57 02/18/23 10:59 Preop Diagnosis: chronic dysmenorrhea, menorrhagia, dyspareunia Operation Date: 02/18/23 12:00 Proposed Procedures p Laparoscopy with fulguration or excision of endometrial lesions 38277, R10.2 -PATIENT IS ALLERGIC TO LATEX, CAUSES A RASH(Not Applicable) - Jimenez Stoner MD Familial anesthetic complications: None Was Beta Ade taken within 24 hours: N/A Was Clonidine taken within 24 hours: N/A Last intake: > 8hrs Social No alcohol and No tobacco Exam alert, oriented x 3, clear to auscultation bilaterally and regular rate & rhythm Airway Mallampati: Class II Dentition: full GI Gastroesophageal Reflux Disease Anesthetic Plan ASA status: 2 Anesthesia: General Risk of > 500 ml blood loss (7ml/kg in children): No Medications/Allergies Home Medications Medication Instructions Recorded Confirmed Last Taken Type cyclobenzaprine 5 mg tablet 5 mg PO TID PRN muscle spasm #30 07/24/22 02/18/23 02/08/23 Rx tabs omeprazole 40 mg capsule,delayed 40 mg PO DAILY PRN Nausea 11/30/22 02/18/23 02/01/23 History release amitriptyline 10 mg tablet 10 mg PO DAILY 90 days #90 tabs 02/15/23 02/16/23 02/17/23 Rx Allergies Allergy/AdvReac Type Severity Reaction Status Date / Time latex Allergy ALGY-Rash Verified 02/18/23 10:50 metoclopramide [From Reglan] AdvReac ADR-Anxiety Verified 02/18/23 10:50 [facility] Anesthesia Medical History Endometriosis determined by laparoscopy (~2013) Initially diagnosed with endometriosis in 2013 by laparoscopy. 09/03/2020: Laparoscopy with cauterization of endometriosis History of PID (~2017) Migraine (~10/22/22) Nausea and vomiting Recurrent UTI Renal stones Multiple small stones left kidney Urolithiasis Surgical History H/O laparoscopy 2013--ov cyst removal; caut of endometriosis 2014-- cautery of endometriosis H/O tubal ligation (09/03/20) Laparoscopic bilateral complete salpingectomy, cauterization of pelvic peritoneal endometriosis. Performed by Dr. Rich at [facility] in [place], [place] History of appendectomy (~2017) laparosopic History of bilateral breast reduction surgery History of cholecystectomy (~2011) Laparoscopic Family History Mother Hyperlipidemia Hypertension Family history of thyroid problem Social History Smoking and tobacco status: never smoked Second hand smoke exposure: Yes Alcohol intake: former Former alcohol use details: Social before Substance/Drug Use: never Marital status: Current occupational status: employed Data Anesthesia Cardiac Studies: No Data to Display
[2023-02-18] MEDS: sodium chloride 0.9% 1,000 ML 30 ML IV (11:16)
--- NOTE | 2023-02-18 12:04 | P.HP_ITS ---
Same Day Surgery H&P Indication for Procedure/HPI DATE OF PROCEDURE: February 18, 2023 CHIEF COMPLAINT/INDICATIONFOR SURGICAL PROCEDURE: chronic pelvic pain and dysmenorrhea PREOP DIAGNOSIS: chronic dysmenorrhea, menorrhagia, dyspareunia PLANNED PROCEDURE: Operation Date: 02/18/23 12:00 Proposed Procedures p Laparoscopy with fulguration or excision of endometrial lesions 75620, R10.2 - PATIENT IS ALLERGIC TO LATEX, CAUSES A RASH(Not Applicable) - Jimenez Stoner MD Medications/Allergies* Home Medications Medication Instructions Recorded Confirmed Type omeprazole 40 mg capsule,delayed 40 mg PO DAILY PRN Nausea 11/30/22 02/18/23 History release Allergies/Adverse Reactions Allergy/AdvReac Type Severity Reaction Status Date / Time latex Allergy ALGY-Rash Verified 02/18/23 10:50 metoclopramide [From Reglan] AdvReac ADR-Anxiety Verified 02/18/23 10:50 Current Medications: Generic Name Dose Route Start Last Admin Trade Name Freq PRN Reason Stop Dose Admin Sodium Chloride 1,000 mls @ 30 mls/hr 02/18/23 10:45 02/18/23 11:16 Sodium Chloride 0.9% IV 02/19/23 10:44 30 mls/hr .Q24H ROLANDA Administration Pertinent History/Comorbid Conditions* Medical History (Updated 02/01/23 @ 00:01 by JAMIL Kim) Endometriosis determined by laparoscopy (~2013) Initially diagnosed with endometriosis in 2013 by laparoscopy. 09/03/2020: Laparoscopy with cauterization of endometriosis History of PID (~2017) Migraine (~10/22/22) Nausea and vomiting Recurrent UTI Renal stones Multiple small stones left kidney Urolithiasis Surgical History (Updated 10/22/22 @ 14:23 by KARELY Borjas) H/O laparoscopy 2013--ov cyst removal; caut of endometriosis 2014-- cautery of endometriosis H/O tubal ligation (09/03/20) Laparoscopic bilateral complete salpingectomy, cauterization of pelvic peritoneal endometriosis. Performed by Dr. Rich at [facility] in [place], [place] History of appendectomy (~2017) laparosopic History of bilateral breast reduction surgery History of cholecystectomy (~2011) Laparoscopic Family History (Updated 12/12/19 @ 13:03 by Marybeth Clifford LPN) Hyperlipidemia Mother Family history of thyroid problem Mother Hypertension Mother Social History Smoking and tobacco status: never smoked Second hand smoke exposure: Yes Alcohol intake: former Former alcohol use details: Social before Substance/Drug Use: never Marital status: Current occupational status: employed Pertinent Exam Findings alert, oriented x 3, clear to auscultation bilaterally and regular rate & rhythm Recommendations Surgery/Procedure today Coding Level of Care Code Acute Code for Chg Fwd Diagnoses Time Spent (min) 15
[2023-02-18 12:28] LABS: OR HCG Qualitative Urine Negative (Negative)
[2023-02-18] MEDS: HYDROmorphone 1 mg/mL INJ 1 mL 0.5 MG IVP (14:18)
[2023-02-18] MEDS: ondansetron 2 mg/ML SDV 2 mL 4 MG IVP (14:35)
[2023-02-18] MEDS: oxyCODONE-APAP 5-325 mg Tablet 1 TAB PO (14:49)
--- NOTE | 2023-02-18 17:07 | ANE.PACU2 ---
Inpatient post-anesthesia follow up: Airway intact: Yes Vital signs: Temperature 97.4 F Pulse Rate 84 Respiratory Rate 16 Blood Pressure 125/97 Pulse Oximetry 96 Oxygen Delivery Me thod Room Air Oxygen Flow Rate Fraction of Inspir ed Oxygen Hydration adequate: Yes Nausea and vomiting: No Pain level: 1 Mental status: Baseline
--- NOTE | 2023-02-18 22:12 | P.OP_ITS ---
Operative Report Date of procedure: February 18, 2023 Pre-op diagnosis: Preop Diagnosis chronic dysmenorrhea, menorrhagia, dyspareunia Post-op diagnosis: chronic dysmenorrhea, menorrhagia, dyspareunia endometriosis Post-op findings: single dark endometriotic implant in the posterior cul-de-sac no lesions seen anywhere else bilateral fallopian tubes absent normal uterus and ovaries endometriotic implant excised and sent to pathology Procedure done: laparoscopy excisional biopsy of posterior cul-de-sac endometriotic lesion Specimens removed/disposition: endometriotic lesion Surgeon: Jimenez Stoner MD Anesthesia: General Estimated blood loss (mL): 5 Complications: none Condition: stable Disposition: PACU Brief History: patient with long history of dysmenorrhea, dyspareunia and menorrhagia Procedure: Informed consent obtained. The patient was taken to the OR and placed supine on the table. General endotracheal anesthesia was given. The patient was then placed in dorsolithotomy position. The abdomen and perineum were prepped and draped in usual fashion. A hernandez catheter was placed. A [employer] uterine manipulator was placed. A 5 mm subumbilical skin incision was made. A laparoscopic trocar with sheath was inserted into the peritoneal cavity under direct vision with the laparoscope. Pneumoperitoneum was achieved. Two separate 5 mm incisions were made in the right and left mid-abdominal quadrants under direct visualization to accommodate additional trocars and sheaths. The pelvis was explored with the laparoscope. Bilateral fallopian tubes were absent from prior bilateral tubal ligation. Normal uterus and ovaries were seen. No abnormalities were seen in the utero-ovarian ligaments, broad ligaments, anterior cul-de-sac and pelvic side-allen. No white or red lesions, fenestrations, or vascular abnormalities were seen. There was a solitary dark lesion c/w endometriotic implant seen in the posterior cul-de-sac on the peritoneum overlying the area between the utero-sacral ligaments. An enseal device was then used to excise the lesion superficially without injuring the underlying tissues. The lesion measured approximately 5 mm. This was sent to pathology. No bleeding was seen The liver edge was visualized and was normal. The remainder of the pelvis was again examined and seen to be normal. All instruments were then removed from the abdominal cavity after the pneumoperitoneum was allowed to escape. The skin incisions were closed with 4-O monocryl. Dermabond was applied. The hernandez catheter and Zumi were removed. There was no bleeding from the cervix. The patient was then awakened and taken to the recovery room in good condition. Postop condition stable. EBL 5 cc. There were no complications.
== END 2023-02-18 15:17 | disposition home or self-care (01) ==
PROVIDERS: PCP Family Medicine; Visit Provider Obstetrics & Gynecology
PROC: (CPT 49320; principal; 2023-02-18 12:00)
DX: N85.8 Other specified noninflammatory disorders of uterus (principal); K21.9 Gastro-esophageal reflux disease without esophagitis; Z79.899 Other long term (current) drug therapy; Z90.79 Acquired absence of other genital organ(s); Z91.040 Latex allergy status
CPT/HCPCS: 58662; 51702; 81025; 84703; 88307; J1100; J1170; J1200; J2250; J2405; J2704; J2710; J3010; J3490; J7030

== ENCOUNTER 2023-02-23 09:38 | Emergency (ER) | payer BC, MEDICAID, SELFPAY ==
[2023-02-23 09:40] VITALS: BP 128/90; PULSE 102; RESP 18; TEMP 36.4; O2SAT 97
[2023-02-23 09:44] VITALS: BP 135/92; RESP 18
[2023-02-23 10:14] VITALS: RESP 18
--- NOTE | 2023-02-23 10:40 | ED_ITS ---
HPI - Abdominal Pain General: Chief Complaint: Abdominal Pain Stated Complaint: Abd pain Time Seen by Provider: 02/23/23 09:39 Source: patient Mode of arrival: ambulatory History of Present Illness: 32-year-old female who presents to the emergency room with complaints of abdominal succumbs that began overnight. She did have episode of vomiting and more severe abdominal pain. She is postop 5 today for laparoscopic procedure f or endometriosis. She denies any hematemesis coffee-ground emesis she had flatus and a bowel movement since her surgery. She denies dysuria urgency or frequency. She has a little bit of vaginal spotting. She localizes the pain to the suprapubic region at the midline. MD elicited complaint: abdominal pain Onset (ago): hour(s) Pain Consistency: constant Location: Suprapubic Severity: moderate Quality: cramping Radiation: none Exacerbating factors: nothing Relieving factors: nothing Associated Symptoms: Reports GI cramping; Denies anorexia, belching, bloating, change in bowel habits, change in stool character, chills, coffee ground emesis, constipation, diarrhea, dyspepsia, dysuria, excessive flatus, fever(s), heartburn, hematochezia, hematuria, hematemesis, fecal incontinence, loose stools, melena, nausea, poor appetite, syncope and vomiting Review of Systems 2 Const: Denies: fever(s) or chills ENMT: Denies: throat pain, ear or mastoid pain, nasal discharge or nasal congestion Card: Denies: syncope Resp: Denies: dyspnea, productive cough or non-productive cough GI: Reports: GI cramping; Denies: nausea, vomiting, hematemesis, coffee ground emesis, heartburn, diarrhea, constipation, bloating, belching, excessive flatus, fecal incontinence, change in bowel habits, change in stool character, hematochezia or melena : Denies: dysuria or hematuria Skin/Breast: Denies: rash or pruritus PFSH ED PFSH: Medical History Endometriosis determined by laparoscopy (~2013) Initially diagnosed with endometriosis in 2013 by laparoscopy. 09/03/2020: Laparoscopy with cauterization of endometriosis History of PID (~2017) Migraine (~10/22/22) Nausea and vomiting Recurrent UTI Renal stones Multiple small stones left kidney Urolithiasis Surgical History H/O laparoscopy 2013--ov cyst removal; caut of endometriosis 2014-- cautery of endometriosis H/O tubal ligation (09/03/20) Laparoscopic bilateral complete salpingectomy, cauterization of pelvic peritoneal endometriosis. Performed by Dr. Rich at [facility] in [place], [place] History of appendectomy (~2017) laparosopic History of bilateral breast reduction surgery History of cholecystectomy (~2011) Laparoscopic Family History Mother Hyperlipidemia Hypertension Family history of thyroid problem Social History Smoking and tobacco status: never smoked Second hand smoke exposure: Yes Alcohol intake: former Former alcohol use details: Social before Substance/Drug Use: never Marital status: Current occupational status: employed Physical Exam Const: GENERAL APPEARANCE: cooperative and comfortable ORIENTATION/CONSCIOUSNESS: Yes awake, Yes oriented to person, Yes oriented to place and Yes oriented to time HENMT: COMMON NORMALS: normocephalic, atraumatic and hearing grossly normal bilaterally HEAD & SCALP: normocephalic and atraumatic Resp: COMMON NORMALS: normal respiratory effort, No retractions, No use of accessory muscles and clear to auscultation bilaterally AUSCULTATION: clear to auscultation bilaterally Cardio: COMMON NORMALS: regular rate, regular rhythm and No murmurs present (Cardio) RATE: regular rate RHYTHM: regular rhythm GI: COMMON NORMALS: No hepatosplenomegaly present AUSCULTATION: Yes normoac tive bowel sounds PALPATION: Yes Tenderness to palpation present (GI) (Mi dline suprapubic tenderness no guarding rebound moderate pain with percus) and Yes No hepatosplenomegaly present Extremity: COMMON NORMALS: normal to inspection, capillary refill normal, no clubbing, cyanosis or edema, no calf tenderness and no pedal edema Neuro: SENSORIUM/ORIENTATION: Yes oriented to person, Yes oriented to place and Yes oriented to time Skin: COMMON NORMALS: no rashes or lesions noted GENERAL SKIN EXAM: no rashes or lesions noted Course Vital Signs: Vital signs: Vital Signs Temperature 97.6 F 02/23/23 09:40 Pulse Rate 102 H 02/23/23 09:40 Respiratory Rate 18 02/23/23 11:30 Blood Pressure 135/92 02/23/23 09:44 Pulse Oximetry 98 02/23/23 11:30 Oxygen Delivery Me thod Room Air 02/23/23 09:44 MDM - Abdominal Pain Medical Decision Making Labs and imaging reviewed no acute findings on CT Labs unremarkable. No sign of perforation hematoma abscess or free fluid in the abdomen. Patient is feeling better after pain medications and fluids will discharge home refilled some of her Percocet to use as needed she has a follow-up appointment with her surgeon tomorrow keep that appointment and return to the emergency room if she has further problems Medical Records I reviewed the patient's medical records. Lab Data I reviewed the patient's lab results. 02/23/23 10:25 02/23/23 10:25 Labs/Radiology: Radiology Impressions Abdomen/Pelvis CT 02/23/23 10:54 IMPRESSION: 1. Diffuse fatty infiltration the liver. 2. Prior cholecystectomy and appendectomy. 3. No hydronephrosis in either kidney. 4. Physiologic uterine enhancement with multiple follicular ovaries. No evidence of pelvic hematoma or drainable fluid collection. 5. No acute findings in the abdomen or pelvis. Laboratory Results WBC 5.0 10^3/uL (4.0-10.0) 02/23/23 10:25 RBC 4.24 10^6/uL (4.1-5.3) 02/23/23 10:25 Hgb 13.2 g/dL (11.5-15.3) 02/23/23 10:25 Hct 37.9 % (37.0-47.0) 02/23/23 10:25 MCV 89.4 fl (81-99) 02/23/23 10:25 MCH 31.1 pg (28.0-34.0) 02/23/23 10:25 MCHC 34.8 g/dL (30.0-36.0) 02/23/23 10:25 RDW 11.5 % (12.1-15.1) L 02/23/23 10:25 Plt Count 226 10^3/cmm (130-400) 02/23/23 10:25 MPV 8.7 fL (7.4-10.4) 02/23/23 10:25 Neut % (Auto) 63.7 % 02/23/23 10:25 Lymph % (Auto) 22.9 % 02/23/23 10:25 Upson % (Auto) 7.2 % 02/23/23 10:25 Eos % (Auto) 5.6 % 02/23/23 10:25 Baso % (Auto) 0.4 % 02/23/23 10:25 Neut # (Auto) 3.21 10^3/uL (1.8-7.7) 02/23/23 10:25 Lymph # (Auto) 1.2 10^3/uL (0.8-4.8) 02/23/23 10:25 Upson # (Auto) 0.4 10^3/uL (0.2-0.9) 02/23/23 10:25 Eos # (Auto) 0.3 10^3/uL (0.0-0.8) 02/23/23 10:25 Baso # (Auto) 0.0 10^3/uL (0.0-0.1) 02/23/23 10:25 Nucleated RBC % (auto) 0 % 02/23/23 10:25 Nucleated RBCs # 0.0 /100WBC 02/23/23 10:25 Sodium 140 mmol/L (136-145) 02/23/23 10:25 Potassium 3.6 mmol/L (3.5-5.1) 02/23/23 10:25 Chloride 105 mmol/L (98-107) 02/23/23 10:25 Carbon Dioxide 25 mmol/L (22-29) 02/23/23 10:25 Anion Gap 13.6 (5-19) 02/23/23 10:25 BUN 13 mg/dL (6-20) 02/23/23 10:25 Creatinine 0.6 mg/dL (0.5-0.9) 02/23/23 10:25 GFR Calculation 115.9 mL/min (90-130) 02/23/23 10:25 Glucose 92 mg/dL (65-115) 02/23/23 10:25 Calculated Osmolality 290 mOsm/kg (285-295) 02/23/23 10:25 Calcium 9.1 mg/dL (8.5-10.5) 02/23/23 10:25 Total Bilirubin 0.4 mg/dL (0.15-1.2) 02/23/23 10:25 AST 19 U/L (0-32) 02/23/23 10:25 ALT 14 U/L (0-33) 02/23/23 10:25 Alkaline Phosphatase 51 U/L (35-105) 02/23/23 10:25 Total Protein 7.5 g/dL (6.6-8.7) 02/23/23 10:25 Albumin 4.5 g/dL (3.5-5.2) 02/23/23 10:25 Globulin 3.0 g/dL (1.3-4.6) 02/23/23 10:25 HCG, Qual Negative (Negative) 02/23/23 10:25 Discharge Plan Discharge Patient Disposition: Home Clinical Impression: Abdominal pain Condition: Stable Prescriptions: New Percocet 5-325 mg tablet 1 tab PO Q4H PRN (Reason: pain) Qty: 10 0RF No Action oxycodone-acetaminophen [Percocet] 5-325 mg tablet 1 tab PO Q8H PRN (Reason: pain) 7 Days Qty: 20 0RF Tums 200 mg calcium (500 mg) Tablet,Chewable 200 mg PO QID PRN (Reason: Stomach Upset) ibuprofen 200 mg Tablet 400 - 800 mg PO Q6H PRN (Reason: Pain) ondansetron 4 mg tablet,disintegrating 4 mg PO Q8H PRN (Reason: Nausea And Vomiting) amitriptyline 10 mg tablet 10 mg PO BEDTIME Discharge Orders: Discharge ED (Routine); Ordered 02/23/23 Ordered By: Fernando Almeida Referrals: Adonay Pennington MD [Primary Care Provider] - Discharge Diet: Advance as tolerated Discharge Activity: Increase activity as tolerated Patient Instructions: Abdominal Pain (ED), Opioid Safety, Pain Management Activity Restrictions/Additional Instructions: You are seen today for abdominal pain Labs and CT of the abdomen did not show anything acute. Recommend liquid diet and use the pain and nausea medications given follow-up with Dr. Stoner tomorrow as scheduled. Return emergency room if sudden change of your symptoms. Coding Level of Care Code ED Senior Information Developer for Zenaida Hairston
[2023-02-23 10:48] LABS: Basophils % 0.4 %; Eosinophils # 0.3 10^3/uL (0.0-0.8); Eosinophils % 5.6 %; Hematocrit 37.9 % (37.0-47.0); Hemoglobin 13.2 g/dL (11.5-15.3); Lymphocytes # 1.2 10^3/uL (0.8-4.8); Lymphocytes % 22.9 %; Mean Corpuscular HGB Conc 34.8 g/dL (30.0-36.0); Mean Corpuscular Hemoglobin 31.1 pg (28.0-34.0); Mean Corpuscular Volume 89.4 fl (81-99); Mean Platelet Volume 8.7 fL (7.4-10.4); Monocytes # 0.4 10^3/uL (0.2-0.9); Monocytes % 7.2 %; Neutrophils # 3.21 10^3/uL (1.8-7.7); Neutrophils % 63.7 %; Nucleated Red Blood Cells % 0 %; Platelet Count 226 10^3/cmm (130-400); Red Blood Count 4.24 10^6/uL (4.1-5.3); Red Cell Distribution Width 11.5 % (12.1-15.1)
--- NOTE | 2023-02-23 10:54 | CT_ITS ---
WS: [id number] CT ABDOMEN PELVIS TECHNIQUE: Contrast-enhanced CT of the abdomen and pelvis with coronal and sagittal reformatted image s. CLINICAL INFORMATION: abd pain COMPARISON: None. DLP: 465.[address] scans at [facility] use at least one of these dose optimization techniques: automated e xposure control; mA and/or kV adjustment per patient size (includes targeted exams where dose is matc hed to clinical indication); or iterative reconstruction. FINDINGS: Prior cholecystectomy and appendectomy. Diffuse fatty infiltration liver. Normal portal vein and spl enic vein. Normal spleen. Normal GE junction. Lung bases are well aerated. Normal portal vein and spl enic vein. Normal pancreatic parenchymal enhancement. Adrenal glands are normal. No hydronephrosis in either kidney. Normal caliber abdominal aorta. Physiologic uterine enhancement. Multifollicular ovaries bilaterally. No evidence of pelvic hematoma or drainable fluid collection in the pelvis. Normal lumbar spine.Normal sigmoid colon. No evidence of high-grade small or large bowel obstruction. CT/CT abdomen pelvis w con* [id number] IMPRESSION: 1. Diffuse fatty infiltration the liver. 2. Prior cholecystectomy and appendectomy. 3. No hydronephrosis in either kidney. 4. Physiologic uterine enhancement with multiple follicular ovaries. No eviden ce of pelvic hematoma or drainable fluid collection. 5. No acute findings in the abdomen or pelvis.
[2023-02-23 11:09] LABS: HCG, Serum Qual Negative (Negative)
[2023-02-23 11:15] LABS: Alanine Aminotransferase 14 U/L (0-33); Albumin Level 4.5 g/dL (3.5-5.2); Alkaline Phosphatase 51 U/L (35-105); Anion Gap 13.6 (5-19); Aspartate Amino Transferase 19 U/L (0-32); Blood Urea Nitrogen 13 mg/dL (6-20); Calcium 9.1 mg/dL (8.5-10.5); Carbon Dioxide 25 mmol/L (22-29); Chloride 105 mmol/L (98-107); Glomerular Filtration Rate 115.9 mL/min (90-130); Glucose 92 mg/dL (65-115); Osmolality Calculated 290 mOsm/kg (285-295); Potassium 3.6 mmol/L (3.5-5.1); Sodium 140 mmol/L (136-145); Total Bilirubin 0.4 mg/dL (0.15-1.2); Total Protein 7.5 g/dL (6.6-8.7)
[2023-02-23] MEDS: iohexol 350 mg/mL 500 mL Btl (per mL) IV (11:21)
[2023-02-23] MEDS: ondansetron 2 mg/ML SDV 2 mL 4 MG IVP (11:29)
[2023-02-23 11:30] VITALS: RESP 18; O2SAT 98
[2023-02-23] MEDS: morphine 4 mg/mL SDV 1 mL 6 MG IVP (11:30)
[2023-02-23 12:30] VITALS: BP 135/93; PULSE 96; RESP 16; O2SAT 98
[2023-02-23 12:59] VITALS: BP 135/93; PULSE 96; RESP 16; O2SAT 98
== END 2023-02-23 13:01 | disposition home or self-care (01) ==
PROVIDERS: Emergency Provider Family Medicine; PCP Family Medicine
DX: R10.9 Unspecified abdominal pain (principal); Z87.440 Personal history of urinary (tract) infections; Z87.442 Personal history of urinary calculi; Z77.22 Contact with and (suspected) exposure to environmental tobacco smoke (acute) (chronic)
CPT/HCPCS: 36415; 74177; 80053; 84703; 85025; 96374; 96375; 99285; J2270; J2405; Q9967

== ENCOUNTER 2023-04-20 15:50 | Emergency (ER) | payer BC, MEDICAID, SELFPAY ==
[2023-04-20 15:56] VITALS: BP 124/89; PULSE 87; RESP 16; TEMP 36.4; O2SAT 100; BMI 21.9
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
[2023-04-20 16:13] VITALS: BP 117/89; PULSE 88; RESP 18; O2SAT 99
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
[2023-04-20] MEDS: HYDROcodone-acetaminophen 5-325 mg Tablet 1 TAB PO (16:20)
== END 2023-04-20 17:59 | disposition home or self-care (01) ==
PROVIDERS: Emergency Provider Registered Nurse; PCP Family Medicine
DX: M62.830 Muscle spasm of back (principal); Z77.22 Contact with and (suspected) exposure to environmental tobacco smoke (acute) (chronic)
CPT/HCPCS: 72125; 72128; 99284

== ENCOUNTER 2023-06-25 17:10 | Emergency (ER) | payer BC, MEDICAID, SELFPAY ==
[2023-06-25 17:26] VITALS: BP 117/83; PULSE 100; RESP 18; TEMP 36.6; O2SAT 100; BMI 21.2
[2023-06-25 18:28] LABS: Basophils % 0.3 %; Eosinophils # 0.1 10^3/uL (0.0-0.8); Eosinophils % 1.2 %; Hematocrit 40.3 % (36-47); Lymphocytes # 1.6 10^3/uL (0.8-4.8); Mean Corpuscular Hemoglobin 32.4 pg (27-33); Mean Corpuscular Volume 92.6 fl (85-98); Mean Platelet Volume 9.1 fL (7.4-10.4); Monocytes # 0.4 10^3/uL (0.2-0.9); Monocytes % 7.5 %; Neutrophils # 3.67 10^3/uL (1.8-7.7); Neutrophils % 63.7 %; Nucleated Red Blood Cells % 0 %; Platelet Count 237 10^3/cmm (157-399); Red Blood Count 4.35 10^6/uL (3.85-5.65); Red Cell Distribution Width 11.5 % (12.1-15.1); White Blood Count 5.77 10^3/uL (3.29-11.43)
[2023-06-25 18:39] LABS: HCG, Serum Qual Negative (Negative)
[2023-06-25 18:49] LABS: Alanine Aminotransferase 12 U/L (0-33); Albumin Level 5.1 g/dL (3.5-5.2); Alkaline Phosphatase 46 U/L (35-105); Anion Gap 15.9 (5-19); Aspartate Amino Transferase 20 U/L (0-32); Blood Urea Nitrogen 9 mg/dL (6-20); Calcium 9.6 mg/dL (8.5-10.5); Carbon Dioxide 24 mmol/L (22-29); Chloride 102 mmol/L (98-107); Globulin 2.9 g/dL (1.3-4.6); Glucose 95 mg/dL (65-115); Osmolality Calculated 284 mOsm/kg (285-295); Potassium 3.9 mmol/L (3.5-5.1); Sodium 138 mmol/L (136-145); Total Bilirubin 0.9 mg/dL (0.15-1.2)
--- NOTE | 2023-06-25 20:57 | W.ED.FEMALGU ---
HPI - Female Genitourinary General: Chief complaint: Vaginal Bleeding Stated complaint: pelvic pain Time Seen by Provider: 06/25/23 20:57 History of Present Illness: 32-year-old female presenting with pelvic pain and vaginal bleeding. She states the pain started yesterday, along with passage of significant clots. Bleeding continued through today, but has slowed some now. She still continues to have significant pain. No other discharge. No diarrhea. No vomiting. She is nauseated. No fever. She has a history of endometriosis, and had an exploratory laparoscopy earlier in the year for this with removal of fibroid. She has had bilateral tubal ligation. She states that her periods are irregular, and usually have significant pain, but not like this. Associated symptoms: Reports abdominal pain and nausea; Deny vaginal discharge Review of Systems Const: Denies: fever(s) Card: Denies: chest pain or palpitations Resp: Denies: dyspnea, productive cough or non-productive cough GI: Reports: abdominal pain and nausea; Denies: vomiting : Reports: vaginal bleeding; Denies: flank pain, difficulty voiding, dysuria or vaginal discharge [facility] ED PFSH: Medical History Endometriosis determined by laparoscopy (~2013) Initially diagnosed with endometriosis in 2013 by laparoscopy. 09/03/2020: Laparoscopy with cauterization of endometriosis History of PID (~2017) Migraine (~10/22/22) Nausea and vomiting Recurrent UTI Renal stones Multiple small stones left kidney Urolithiasis Surgical History H/O laparoscopy 2013--ov cyst removal; caut of endometriosis 2014-- cautery of endometriosis H/O tubal ligation (09/03/20) Laparoscopic bilateral complete salpingectomy, cauterization of pelvic peritoneal endometriosis. Performed by Dr. Rich at [facility] in [place], [place] History of appendectomy (~2017) laparosopic History of bilateral breast reduction surgery History of cholecystectomy (~2011) Laparoscopic Family History Mother Hyperlipidemia Hypertension Family history of thyroid problem Social History Smoking and tobacco status: never smoked Second hand smoke exposure: Yes Alcohol intake: former Former alcohol use details: Social before Substance/Drug Use: never Marital status: Current occupational status: employed Physical Exam Const: COMMON NORMALS: no acute distress GENERAL APPEARANCE: cooperative; not ill appearing and not frail appearing HENMT: COMMON NORMALS: normocephalic, atraumatic and Normal external nose present HEAD & SCALP: normocephalic and atraumatic FACE & SINUS: normal facial exam and face symmetric NOSE: Normal external nose present Eye: COMMON NORMALS: Equal, round and reactive pupils present and EOMs intact bilaterally PUPIL: Yes Equal, round and reactive pupils present Neck/C-Spine: GENERAL: Yes trachea midline Chest: CHEST: Yes Symmetrical chest wall rise Resp: COMMON NORMALS: normal respiratory effort, No retractions, No use of accessory muscles and clear to auscultation bilaterally AUSCULTATION: clear to auscultation bilaterally Cardio: COMMON NORMALS: regular rate and regular rhythm RATE: regular rate RHYTHM: regular rhythm GI: COMMON NORMALS: Normal to inspection, nondistended, normoactive bowel sounds present and Soft to palpation PALPATION: Yes Soft to palpation and Yes Tenderness to palpation present (GI) Extremity: COMMON NORMALS: no pedal edema Neuro: LOU COMA SCALE: document GCS findings Lou coma scale eye opening: Spontaneous Lou coma scale verbal response: Orientated [place] coma scale motor response: Obey commands [place] coma scale total score: 15 SENSORY EXAM: Yes extremities (intact) Psych: COMMON NORMALS: speech normal SPEECH: Yes normal speech Skin: COMMON NORMALS: no rashes or lesions noted GENERAL SKIN EXAM: no rashes or lesions noted Course Vital Signs: Vital signs: Vital Signs Temperature 97.9 F 06/25/23 17:26 Pulse Rate 100 06/25/23 17:26 Respiratory Rate 16 06/25/23 21:28 Blood Pressure 117/83 06/25/23 17:26 Pulse Oximetry 98 06/25/23 21:28 MDM - Female Medical Decision Making Patient has significant suprapubic tenderness. Exam is otherwise benign. Her vitals are stable. She is afebrile. Her CBC is normal including a hemoglobin of 14. BMP is normal. Liver enzymes are normal. Urinalysis is negative including blood. Pelvic ultrasound is pending. Ultrasound reveals no masses, small cyst, blood flow to both ovaries. Endometrium is normal. Pain is improved. She will be allowed home. Lab Data 06/25/23 18:06 06/25/23 18:06 Radiology Impressions Transvaginal US 06/25/23 21:14 IMPRESSION: Normal duplex of the ovaries. No evidence of ovarian torsion. IMPRESSION: No acute findings. Laboratory Results WBC 5.77 10^3/uL (3.29-11.43) 06/25/23 18:06 RBC 4.35 10^6/uL (3.85-5.65) 06/25/23 18:06 Hgb 14.10 g/dL (11.27-16.99) 06/25/23 18:06 Hct 40.3 % (36-47) 06/25/23 18:06 MCV 92.6 fl (85-98) 06/25/23 18:06 MCH 32.4 pg (27-33) 06/25/23 18:06 MCHC 35.0 g/dL (30-55) 06/25/23 18:06 RDW 11.5 % (12.1-15.1) L 06/25/23 18:06 Plt Count 237 10^3/cmm (157-399) 06/25/23 18:06 MPV 9.1 fL (7.4-10.4) 06/25/23 18:06 Neut % (Auto) 63.7 % 06/25/23 18:06 Lymph % (Auto) 27.0 % 06/25/23 18:06 [place] % (Auto) 7.5 % 06/25/23 18:06 Eos % (Auto) 1.2 % 06/25/23 18:06 Baso % (Auto) 0.3 % 06/25/23 18:06 Neut # (Auto) 3.67 10^3/uL (1.8-7.7) 06/25/23 18:06 Lymph # (Auto) 1.6 10^3/uL (0.8-4.8) 06/25/23 18:06 [place] # (Auto) 0.4 10^3/uL (0.2-0.9) 06/25/23 18:06 Eos # (Auto) 0.1 10^3/uL (0.0-0.8) 06/25/23 18:06 Baso # (Auto) 0.0 10^3/uL (0.0-0.1) 06/25/23 18:06 Nucleated RBC % (auto) 0 % 06/25/23 18:06 Nucleated RBCs # 0.0 /100WBC 06/25/23 18:06 Sodium 138 mmol/L (136-145) 06/25/23 18:06 Potassium 3.9 mmol/L (3.5-5.1) 06/25/23 18:06 Chloride 102 mmol/L (98-107) 06/25/23 18:06 Carbon Dioxide 24 mmol/L (22-29) 06/25/23 18:06 Anion Gap 15.9 (5-19) 06/25/23 18:06 BUN 9 mg/dL (6-20) 06/25/23 18:06 Creatinine 0.7 mg/dL (0.5-0.9) 06/25/23 18:06 GFR Calculation 97.0 mL/min (90-130) 06/25/23 18:06 Glucose 95 mg/dL (65-115) 06/25/23 18:06 Calculated Osmolality 284 mOsm/kg (285-295) L 06/25/23 18:06 Calcium 9.6 mg/dL (8.5-10.5) 06/25/23 18:06 Total Bilirubin 0.9 mg/dL (0.15-1.2) 06/25/23 18:06 AST 20 U/L (0-32) 06/25/23 18:06 ALT 12 U/L (0-33) 06/25/23 18:06 Alkaline Phosphatase 46 U/L (35-105) 06/25/23 18:06 Total Protein 8.0 g/dL (6.6-8.7) 06/25/23 18:06 Albumin 5.1 g/dL (3.5-5.2) 06/25/23 18:06 Globulin 2.9 g/dL (1.3-4.6) 06/25/23 18:06 HCG, Qual Negative (Negative) 06/25/23 18:06 Urine Color Straw (Yellow) 06/25/23 20:48 Urine Appearance Clear (CLEAR) 06/25/23 20:48 Urine pH 6.5 (5-7) 06/25/23 20:48 Ur Specific [place] 1.000 (1.005-1.030) L 06/25/23 20:48 Urine Protein Neg (Negative) 06/25/23 20:48 Urine Glucose (UA) Norm (Normal) 06/25/23 20:48 Urine Ketones Negative (Negative) 06/25/23 20:48 Urine Blood Neg (Negative) 06/25/23 20:48 Urine Nitrate Negative (Negative) 06/25/23 20:48 Urine Bilirubin Neg (Negative) 06/25/23 20:48 Urine Urobilinogen Norm mg/dL (Negative) 06/25/23 20:48 Ur Leukocyte Esterase Negative (Negative) 06/25/23 20:48 Discharge Plan Discharge Patient Disposition: Home Clinical Impression: Dysfunctional uterine bleeding Condition: Stable Prescriptions: New ketorolac 10 mg tablet 10 mg PO TID PRN (Reason: pain) Qty: 10 0RF Continued Percocet 5-325 mg tablet 1 tab PO Q4H PRN (Reason: pain) Qty: 10 0RF Discontinued naproxen 375 mg tablet 375 mg PO BID Qty: 30 0RF ibuprofen 200 mg Tablet 400 - 800 mg PO Q6H PRN (Reason: Pain) No Action oxycodone-acetaminophen [Percocet] 5-325 mg tablet 1 tab PO Q8H PRN (Reason: pain) 7 Days Qty: 14 0RF norethindrone-e.estradiol-iron [Junel FE 1.5/30 (28)] 1.5 mg-30 mcg (21)/75 mg (7) tablet 1 tab PO DAILY Qty: 84 3RF tizanidine 4 mg capsule 4 mg PO BID PRN (Reason: muscle spasticity) Qty: 10 0RF Tums 200 mg calcium (500 mg) Tablet,Chewable 200 mg PO QID PRN (Reason: Stomach Upset) ondansetron 4 mg tablet,disintegrating 4 mg PO Q8H PRN (Reason: Nausea And Vomiting) amitriptyline 10 mg tablet 10 mg PO BEDTIME Discharge Orders: Discharge ED (Routine); Ordered 06/25/23 Ordered By: Melo Cuenca Referrals: Jimenez Stoner MD [Physician] - 4-7 days Adonay Pennington MD [Primary Care Provider] - 1-3 days Patient Instructions: Abnormal (Dysfunctional) Uterine Bleeding (ED), Opioid Safety, Pain Management Activity Restrictions/Additional Instructions: Return for fever greater than 100, vomiting liquids or medications, worsening pain despite treatment, other concerning symptoms. Follow-up with your doctor next week. You may alternate medications for pain as needed. Coding Level of Care Code ED Cutlery Grinder for Zenaida Hairston
[2023-06-25 21:02] LABS: Add Urine Microscopic? NO; Bilirubin Urine Neg (Negative); Blood Urine Neg (Negative); Glucose Urine UA Norm (Normal); Ketones Urine Negative (Negative); Leukocyte Esterase Urine Negative (Negative); Nitrate Urine Negative (Negative); Protein Urine Neg (Negative); Urine Appearance Clear (CLEAR); Urine Color Straw (Yellow); Urobilinogen Urine Norm (Negative); pH Urine 6.5 (5-7)
[2023-06-25 21:03] LABS: Charge for UA Resulting for Rev
--- NOTE | 2023-06-25 21:14 | USR_ITS ---
PROCEDURE INFORMATION: Exam: US Duplex Artery or Vein of the Abdominal and/or Reproductive Organs, Limited Ovaries Exam date and time: 06/25/2023 10:02 PM Age: 32 years old Clinical indication: Pelvic pain; Prior surgery; Surgery date: 1-6 months; Surgery type: HX of laproscopic surgeries; Additional info: Pelvic pain, vaginal bleeding, HX endometriosis TECHNIQUE: Imaging protocol: Real-time duplex ultrasound scan of the arterial or venous flow with barriga scale, color Doppler flow and spectral waveform analysis with image documentation. Limited duplex exam focused on the ovaries. Duplex exam was performed to evaluate for torsion and other vascular conditions. COMPARISON: US pelvic complete* [id number] 01/07/2023 8:10 PM FINDINGS: Right ovary/adnexa: Normal duplex of the ovary. Normal Doppler waveforms and color flow. No evidence of ovarian torsion. Left ovary/adnexa: Normal duplex of the ovary. Normal Doppler waveforms and color flow. No evidence of ovarian torsion. PROCEDURE INFORMATION: Exam: US Pelvis, Transvaginal Exam date and time: 06/25/2023 10:02 PM Age: 32 years old Clinical indication: Pelvic pain; Prior surgery; Surgery date: 1-6 months; Surgery type: HX of laproscopic surgeries; Additional info: Pelvic pain, vaginal bleeding, HX endometriosis TECHNIQUE: Imaging protocol: Real-time transvaginal pelvic ultrasound with image documentation. Transvaginal imaging was used for better evaluation of the endometrium, adnexa, and/or cervix. COMPARISON: US pelvic complete* [id number] 01/07/2023 8:10 PM FINDINGS: Uterus: No focal uterine mass or endometrial thickening is identified. Cervix: Few tiny nabothian cysts. Right ovary/adnexa: Unremarkable. No mass. Normal ovarian blood flow. Left ovary/adnexa: Unremarkable. No mass. Normal ovarian blood flow. Small probable dominant follicle measures 1.6 cm. Intraperitoneal space: No free fluid. US/US transvaginal [id number] IMPRESSION: Normal duplex of the ovaries. No evidence of ovarian torsion. IMPRESSION: No acute findings.
[2023-06-25] MEDS: ondansetron 4 MG Tablet 8 MG PO (21:27)
[2023-06-25 21:28] VITALS: RESP 16; O2SAT 98
[2023-06-25] MEDS: ketorolac 30 mg/mL INJ IM (21:28)
[2023-06-25] MEDS: oxyCODONE-APAP 5-325 mg Tablet 2 TAB PO (21:28)
== END 2023-06-25 22:55 | disposition home or self-care (01) ==
PROVIDERS: Nurse Practitioner Family; Emergency Provider Emergency Medicine; PCP Family Medicine
DX: N93.8 Other specified abnormal uterine and vaginal bleeding (principal); Z77.22 Contact with and (suspected) exposure to environmental tobacco smoke (acute) (chronic)
CPT/HCPCS: 36415; 76830; 80053; 81003; 84703; 85025; 96372; 99284; J1885; Q0162

== ENCOUNTER → 2023-06-28 11:05 | Outpatient (BNVA) | payer BC, MEDICAID, SELFPAY | PROVIDERS: PCP Family Medicine; Visit Provider Registered Nurse | DX: R05.9 Cough, unspecified (principal); J02.9 Acute pharyngitis, unspecified; B34.9 Viral infection, unspecified | CPT/HCPCS: 87400; 87880 ==

== ENCOUNTER 2023-10-18 13:34 | Emergency (ER) | payer BC, MEDICAID, SELFPAY ==
[2023-10-18 13:37] VITALS: BP 144/91; PULSE 84; RESP 16; TEMP 36.4; O2SAT 100; BMI 23.2
[2023-10-18 14:55] VITALS: BP 128/91; PULSE 80; RESP 16; O2SAT 100
[2023-10-18 15:10] LABS: Basophils % 0.3 %; Eosinophils # 0.1 10^3/uL (0.0-0.8); Eosinophils % 1.1 %; Hematocrit 36.8 % (36-47); Lymphocytes # 1.2 10^3/uL (0.8-4.8); Lymphocytes % 15.7 %; Mean Corpuscular HGB Conc 35.3 g/dL (30-55); Mean Corpuscular Hemoglobin 32.4 pg (27-33); Mean Corpuscular Volume 91.8 fl (85-98); Mean Platelet Volume 9.3 fL (7.4-10.4); Monocytes # 0.5 10^3/uL (0.2-0.9); Monocytes % 6.9 %; Neutrophils # 5.94 10^3/uL (1.8-7.7); Neutrophils % 75.7 %; Nucleated Red Blood Cells % 0 %; Platelet Count 211 10^3/cmm (157-399); Red Blood Count 4.01 10^6/uL (3.85-5.65); Red Cell Distribution Width 11.9 % (12.1-15.1); White Blood Count 7.84 10^3/uL (3.29-11.43)
[2023-10-18] MEDS: sodium chloride 0.9% 1,000 ML 999 ML IV (15:14)
[2023-10-18] MEDS: ondansetron 2 mg/ML SDV 2 mL 4 MG IVP (15:15)
[2023-10-18 15:16] LABS: HCG Qualitative Urine. Negative (Negative)
[2023-10-18] MEDS: ketorolac 30 mg/mL INJ 15 MG IVP (15:18)
[2023-10-18] MEDS: morphine 4 mg/mL SDV 1 mL IVP (15:18)
[2023-10-18 15:29] LABS: Alanine Aminotransferase 9 U/L (0-33); Albumin Level 4.5 g/dL (3.5-5.2); Alkaline Phosphatase 45 U/L (35-105); Anion Gap 13.3 (5-19); Aspartate Amino Transferase 17 U/L (0-32); Blood Urea Nitrogen 7 mg/dL (6-20); Calcium 9.4 mg/dL (8.5-10.5); Carbon Dioxide 21 mmol/L (22-29); Chloride 107 mmol/L (98-107); Globulin 2.9 g/dL (1.3-4.6); Glomerular Filtration Rate 115.1 mL/min (90-130); Glucose 90 mg/dL (65-115); Osmolality Calculated 284 mOsm/kg (285-295); Potassium 3.3 mmol/L (3.5-5.1); Sodium 138 mmol/L (136-145); Total Bilirubin 0.5 mg/dL (0.15-1.2); Total Protein 7.4 g/dL (6.6-8.7)
[2023-10-18 15:32] LABS: Bilirubin Urine Neg (Negative); Blood Urine 2+ (Negative); Glucose Urine UA Norm (Normal); Ketones Urine Negative (Negative); Leukocyte Esterase Urine Negative (Negative); Nitrate Urine Negative (Negative); Protein Urine Neg (Negative); Urine Appearance Clear (CLEAR); Urine Color Yellow (Yellow); Urobilinogen Urine 1 mg/dL (Negative); pH Urine 5 (5-7)
[2023-10-18 15:33] LABS: Add Urine Culture? No; Add Urine Microscopic? YES; Bacteria Urine TRACE /hpf; RBC Urine 0-4 /hpf (0-2); WBC Urine 0-4 /hpf (0-5)
--- NOTE | 2023-10-18 15:38 | ED_ITS ---
HPI - Abdominal Pain 2 General: Chief Complaint: Abdominal Pain Stated Complaint: pelvic pain Time Seen by Provider: 10/18/23 14:36 History of Present Illness: 33-year-old female here with significant other for recurrence of pelvic pain. She has a long history of irregular periods, endometriosis, and chronic menorrhagia/dyssmenorrhea.. She reports she missed her last menstrual cycle which typically means that the following cycle (which started last night) will be particularly heavy and painful. She is a patient of Dr. Jimenez Stoner. According to the patient and confirmed with chart review, she is scheduled for hysterectomy for chronic menorrhagia. She has a history of multiple laparoscopic procedures confirming endometriosis. Patient denies any change in the quality or character of her symptoms. She feels like it is an exacerbation of her endometriosis and dysmenorrhea. She has a history of tubal ligation. Denies concerns for STDs. Associated Symptoms: Reports GI cramping, nausea and vomiting; Denies constipation and diarrhea Review of Systems 2 General: Reports: 10 or more systems reviewed and unremarkable except in HPI and below GI: Reports: abdominal pain (Pelvic pain radiates into the low back), nausea, vomiting and GI cramping; Denies: diarrhea or constipation PFSH ED 2 PFSH: Medical History (Updated 10/18/23 @ 15:44 by Angelo Early MD) Cervical radiculopathy Urolithiasis Nausea and vomiting Recurrent UTI Renal stones Multiple small stones left kidney Migraine (~10/22/22) Endometriosis determined by laparoscopy (~2013) Initially diagnosed with endometriosis in 2013 by laparoscopy. 09/03/2020: Laparoscopy with cauterization of endometriosis History of PID (~2017) Surgical History History of bilateral breast reduction surgery H/O tubal ligation (09/03/20) Laparoscopic bilateral complete salpingectomy, cauterization of pelvic peritoneal endometriosis. [place] [facility] [place] History of appendectomy (~2017) laparosopic H/O laparoscopy 2013--ov cyst removal; caut of endometriosis 2014-- cautery of endometriosis History of cholecystectomy (~2011) Laparoscopic Family History Mother Hyperlipidemia Hypertension Family history of thyroid problem Social History Smoking and tobacco/nicotine status: never used tobacco/nicotine Second hand smoke exposure: Yes Alcohol intake: former Former alcohol use details: Social before Substance/Drug Use: never Marital status: Current occupational status: employed Physical Exam 2 Const: COMMON NORMALS: no limitations, alert and well nourished EXAM LIMITATIONS: no altered mental status HENMT: COMMON NORMALS: normocephalic, atraumatic and external ears normal H EAD & SCALP: normocephalic and atraumatic EXTERNAL EAR: Yes external ears normal MOUTH: no muffled voice Eye: COMMON NORMALS: EOMs intact bilaterally, conjunctivae normal and no scleral icterus CONJUNCTIVA: Yes conjunctivae normal Neck/C-Spine: GENERAL: Yes normal visual inspection and Yes trachea midline Resp: COMMON NORMALS: normal respiratory effort and No use of accessory muscles Cardio: COMMON NORMALS: regular rate and regular rhythm RATE: regular rate RHYTHM: regular rhythm GI: COMMON NORMALS: Soft to palpation PALPATION: Yes Soft to palpation, Yes Tenderness to palpation present (GI) Details: other (Suprapubic region), No Guarding due to palpation present (GI), No Rigid due to palpation, No Palpable mass present, No Ascites present and No Bladder palpation abnormal : BLADDER/KIDNEY EXAM: No Bladder palpation abnormal Extremity: COMMON NORMALS: normal to inspection Neuro: COMMON NORMALS: moves all extremities, no focal motor deficits and no sensory deficits noted SENSORIUM/ORIENTATION: Yes alert SPEECH: speech normal Psych: COMMON NORMALS: mental status grossly normal, Normal thought process present, cooperative, normal affect and speech normal SPEECH: Yes normal speech THOUGHT PROCESS: Normal thought process present Skin: COMMON NORMALS: no rashes or lesions noted, turgor normal and no jaundice GENERAL SKIN EXAM: no rashes or lesions noted and turgor normal Course 2 Vital Signs: Vital signs: Vital Signs Temperature 97.6 F 10/18/23 13:37 Pulse Rate 80 10/18/23 14:55 Respiratory Rate 16 10/18/23 14:55 Blood Pressure 128/91 10/18/23 14:55 Pulse Oximetry 100 10/18/23 14:55 Oxygen Delivery Me thod Room Air 10/18/23 13:37 MDM - Abdominal Pain Medical Decision Making Patient presents with exacerbation of pelvic pain after starting her period last night. She has a long history of endometriosis, menorrhagia, dysmenorrhea. She is scheduled for hysterectomy. She is not tachycardic and does not appear pale. Her hemoglobin is 13 today. Patient is not . She was given Zofran, IV fluids, morphine, Toradol. Will prescribe some hydrocodone to take as a supplement to her baseline pain control with NSAIDs and Tylenol as needed. 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 10/18/23 14:52 10/18/23 14:52 Labs/Radiology: Laboratory Results WBC 7.84 10^3/uL (3.29-11.43) 10/18/23 14:52 RBC 4.01 10^6/uL (3.85-5.65) 10/18/23 14:52 Hgb 13.00 g/dL (11.27-16.99) 10/18/23 14:52 Hct 36.8 % (36-47) 10/18/23 14:52 MCV 91.8 fl (85-98) 10/18/23 14:52 MCH 32.4 pg (27-33) 10/18/23 14:52 MCHC 35.3 g/dL (30-55) 10/18/23 14:52 RDW 11.9 % (12.1-15.1) L 10/18/23 14:52 Plt Count 211 10^3/cmm (157-399) 10/18/23 14:52 MPV 9.3 fL (7.4-10.4) 10/18/23 14:52 Neut % (Auto) 75.7 % 10/18/23 14:52 Lymph % (Auto) 15.7 % 10/18/23 14:52 Elbert % (Auto) 6.9 % 10/18/23 14:52 Eos % (Auto) 1.1 % 10/18/23 14:52 Baso % (Auto) 0.3 % 10/18/23 14:52 Neut # (Auto) 5.94 10^3/uL (1.8-7.7) 10/18/23 14:52 Lymph # (Auto) 1.2 10^3/uL (0.8-4.8) 10/18/23 14:52 Elbert # (Auto) 0.5 10^3/uL (0.2-0.9) 10/18/23 14:52 Eos # (Auto) 0.1 10^3/uL (0.0-0.8) 10/18/23 14:52 Baso # (Auto) 0.0 10^3/uL (0.0-0.1) 10/18/23 14:52 Nucleated RBC % (auto) 0 % 10/18/23 14:52 Nucleated RBCs # 0.0 /100WBC 10/18/23 14:52 Sodium 138 mmol/L (136-145) 10/18/23 14:52 Potassium 3.3 mmol/L (3.5-5.1) L 10/18/23 14:52 Chloride 107 mmol/L (98-107) 10/18/23 14:52 Carbon Dioxide 21 mmol/L (22-29) L 10/18/23 14:52 Anion Gap 13.3 (5-19) 10/18/23 14:52 BUN 7 mg/dL (6-20) 10/18/23 14:52 Creatinine 0.6 mg/dL (0.5-0.9) 10/18/23 14:52 GFR Calculation 115.1 mL/min (90-130) 10/18/23 14:52 Glucose 90 mg/dL (65-115) 10/18/23 14:52 Calculated Osmolality 284 mOsm/kg (285-295) L 10/18/23 14:52 Calcium 9.4 mg/dL (8.5-10.5) 10/18/23 14:52 Total Bilirubin 0.5 mg/dL (0.15-1.2) 10/18/23 14:52 AST 17 U/L (0-32) 10/18/23 14:52 ALT 9 U/L (0-33) 10/18/23 14:52 Alkaline Phosphatase 45 U/L (35-105) 10/18/23 14:52 Total Protein 7.4 g/dL (6.6-8.7) 10/18/23 14:52 Albumin 4.5 g/dL (3.5-5.2) 10/18/23 14:52 Globulin 2.9 g/dL (1.3-4.6) 10/18/23 14:52 HCG, Qual Negative (Negative) 10/18/23 13:54 Urine Color Yellow (Yellow) 10/18/23 13:54 Urine Appearance Clear (CLEAR) 10/18/23 13:54 Urine pH 5 (5-7) 10/18/23 13:54 Ur Specific [place] 1.010 (1.005-1.030) 10/18/23 13:54 Urine Protein Neg (Negative) 10/18/23 13:54 Urine Glucose (UA) Norm (Normal) 10/18/23 13:54 Urine Ketones Negative (Negative) 10/18/23 13:54 Urine Blood 2+ (Negative) H 10/18/23 13:54 Urine Nitrate Negative (Negative) 10/18/23 13:54 Urine Bilirubin Neg (Negative) 10/18/23 13:54 Urine Urobilinogen 1 mg/dL (Negative) H 10/18/23 13:54 Ur Leukocyte Esterase Negative (Negative) 10/18/23 13:54 Urine RBC 0-4 /hpf (0-2) H 10/18/23 13:54 Urine WBC 0-4 /hpf (0-5) H 10/18/23 13:54 Ur Squamous Epith Cells 10-15 /hpf (0-5) H 10/18/23 13:54 Amorphous Sediment Not Reportable 10/18/23 13:54 Urine Bacteria Trace /hpf (NONE) 10/18/23 13:54 No radiology studies performed this visit Discharge Plan Discharge Patient Disposition: Home Clinical Impression: Dysmenorrhea, Endometriosis determined by laparoscopy Condition: Stable Prescriptions: New hydrocodone-acetaminophen 7.5-325 mg tablet 1 tab PO Q4H PRN (Reason: pain (scale score 7-10)) Qty: 14 0RF Senna with Docusate Sodium 8.6-50 mg tablet 1 tab-cap PO BID PRN (Reason: constipation) Qty: 14 0RF No Action methocarbamol 500 mg tablet 500 mg PO TID 15 Days Qty: 45 0RF Rx Instructions: Watch for drowsiness ibuprofen 800 mg tablet 800 mg PO Q8H PRN (Reason: pain) 14 Days Qty: 30 0RF amitriptyline 10 mg tablet 10 mg PO BEDTIME Discharge Orders: Discharge ED (Routine); Ordered 10/18/23 Ordered By: Angelo Early Referrals: Jimenez Stoner MD [Physician] - 1-3 days (ED f/u for pelvic pain, dysmorrhea) Adonay Pennington MD [Primary Care Provider] - Discharge Diet: Regular Discharge Activity: Increase activity as tolerated Patient Instructions: Endometriosis (ED), Dysmenorrhea (ED), Opioid Safety, Pain Management Coding Level of Care Code ED Director Pharmacology for Zenaida Hairston
== END 2023-10-18 16:10 | disposition home or self-care (01) ==
PROVIDERS: Emergency Provider Emergency Medicine; PCP Family Medicine
DX: N94.6 Dysmenorrhea, unspecified (principal); N80.9 Endometriosis, unspecified
CPT/HCPCS: 80053; 81001; 81025; 85025; 96361; 96374; 96375; 99284; J1885; J2270; J2405; J7030

== ENCOUNTER 2023-10-28 09:22 | Observation (INO) | payer BC, MEDICAID, SELFPAY ==
[2023-10-28] VITALS (29 sets, daily range): BP systolic 92–128; BP diastolic 58–91; PULSE 74–121; RESP 12–18; TEMP 36.3–36.8; O2SAT 96–100; BMI 23.0
--- NOTE | 2023-10-28 04:35 | PM.OBGYHP ---
Providers/Chief Complaint Admitting Physician: Jimenez Stoner MD Primary CELLULAR TOWER CLIMBER: Jimenez Stoner MD Primary Care Provider: Adonay Pennington MD Chief Complaint: N94.6 N80.9 [id number] HPI CELLULAR TOWER CLIMBER History of Present Illness 32 y.o. A1 h/o x four h/o BTL h/o dysmenorrhea, dyspareunia, and menorrhagia h/o endometriosis now scheduled for hysterectomy for chronic menorrhagia and pelvic pain PMHx: none PSHx: laparoscopy Breast biopsy Cholecystectomy Appendectomy Present Details Date of Last Menstrual Period: 10/18/23 Calculated Date of Delivery: 07/24/24 Gestational Age Based on Last Menstrual Period: 1 Medications/Allergies Home Medications Medication Instructions Recorded Confirmed Last Taken Type amitriptyline 10 mg tablet 10 mg PO BEDTIME 02/23/23 10/27/23 10/27/23 History ibuprofen 800 mg tablet 800 mg PO Q8H PRN pain 14 days #30 08/13/23 10/27/23 Unknown Rx tabs methocarbamol 500 mg tablet 500 mg PO TID 15 days #45 tabs 08/13/23 10/27/23 Unknown Rx sennosides 8.6 mg-docusate sodium 1 tab-cap PO BID PRN constipation 10/18/23 10/27/23 Unknown Rx 50 mg tablet (Senna with Docusate #14 tabs Sodium) Allergies Allergy/AdvReac Type Severity Reaction Status Date / Time latex Allergy ALGY-Rash Verified 10/27/23 12:45 metoclopramide [From Reglan] AdvReac ADR-Anxiety Verified 10/27/23 12:45 PFSH 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 09/03/2020: Laparoscopy with cauterization of endometriosis History of PID (~2017) Surgical History History of bilateral breast reduction surgery H/O tubal ligation (09/03/20) Laparoscopic bilateral complete salpingectomy, cauterization of pelvic peritoneal endometriosis. Performed [place] Dr. Rich [place] [facility], [place] History of appendectomy (~2017) laparosopic H/O laparoscopy 2013--ov cyst removal; caut of endometriosis 2014-- cautery of endometriosis History of cholecystectomy (~2011) Laparoscopic Family History Mother Hyperlipidemia Hypertension Family history of thyroid problem Social History Smoking and tobacco/nicotine status: never used tobacco/nicotine Second hand smoke exposure: Yes Alcohol intake: former Former alcohol use details: Social before Substance/Drug Use: never Marital status: Current occupational status: employed Other Female Reproductive History: Hx Age of Menarche: 13 Menstrual flow: normal/abnormal: normal History History History 5 Term 4 0 Miscarriages/Ectopic 1 Living Children 4 Physical Exam Const: COMMON NORMALS: no acute distress, patient oriented x3, healthy appearing and alert Resp: COMMON NORMALS: normal respiratory effort, No use of accessory muscles and clear to auscultation bilaterally Cardio: COMMON NORMALS: regular rate and regular rhythm GI: COMMON NORMALS: Normal to inspection, nondistended, normoactive bowel sounds present, Soft to palpation and non-tender Results Labs OB ([facility]): Obstetrics US 07/18/20 Obstetrics US/Biophysical Profile 06/24/20 Hct 36.8 % (36-47) 10/18/23 Hgb 13.00 g/dL (11.27-16.99) 10/18/23 Rho(D) Type Positive 12/14/19 Plt Count 211 10^3/cmm (157-399) 10/18/23 Hep Bs Antibody 175.3 (11.5-1000) 12/02/21 Rubella IgG Antibody 169.4 IU/mL (0.0-10.0) H 12/02/21 VZV IgG Antibody 1052.00 index 12/02/21 Ser , Semi-Qnt 24873.00 mIU/mL 12/14/19 HCG, Qual Negative (Negative) 10/18/23 Micro Urine Specimen 01/24/23 A&P Assessment and plan (1) Dysmenorrhea: h/o x four h/o BTL h/o dysmenorrhea, dyspareunia, and menorrhagia h/o endometriosis patient wants hysterectomy does not want any other options for management plan laparoscopic-assisted vaginal hysterectomy, possible open hysterectomy procedure and risks explained to patient, including, but not limited to,? risks of infection;? bleeding;? injury to internal organs, such as bladder, bowel, blood vessels;? anesthesia;? blood transfusions patient understands and wants to proceed Attestations Medical Necessity Statement*: patient with h/o endometriosis, chronic pelvic pain, admitted for hysterectomy Coding Level of Care Code Acute Code for Chg Fwd Diagnoses Dysmenorrhea N94.6 Time Spent (min) 20
[2023-10-28] MEDS: sodium chloride 0.9% 1,000 ML 30 ML IV (06:29)
--- NOTE | 2023-10-28 06:29 | W.PM.OPSUD ---
Surgery/Procedure H&P Update DATE OF PROCEDURE: October 28, 2023 DATE H&P PERFORMED: 10/28/23 H&P UPDATE INFORMATION: I have reviewed H&P completed within last 30 days, I have examined patient prior to procedure and No changes to prior documentation PREOP DIAGNOSIS: chronic pelvic pain PRIMARY INDICATION FOR PROCEDURE: chronic pelvic pain PLANNED PROCEDURE: Operation Date: 10/28/23 07:00 Proposed Procedures p Laparoscopic assisted vaginal hysterectomy 05078, possible total abdominal hysterectomy 29541,N94.6,N80.9(Not Applicable) - Jimenez Stoner MD s Total Abdominal Hysterectomy(Not Applicable) - Jimenez Stoner MD
[2023-10-28 06:32] LABS: OR HCG Qualitative Urine Negative (Negative)
[2023-10-28] MEDS: ceFAZolin 2,000 MG in sodium chloride 0.9% (plus) 50 ML 100 MG IV (07:03)
--- NOTE | 2023-10-28 07:16 | P.ANESASSM_ITS ---
Pre-Anesthetic Assessment Height/Weight: Height 1.6 m Weight 58.967 kg Temp Pulse Resp BP Pulse Ox O2 Del Method 97.9 F 108 H 16 128/91 96 Room Air 10/28/23 06:24 10/28/23 06:24 10/28/23 06:24 10/28/23 06:24 10/28/23 06:24 10/28/23 06:24 Preop Diagnosis: chronic pelvic pain Operation Date: 10/28/23 07:00 Proposed Procedures p Laparoscopic assisted vaginal hysterectomy 72259, possible total abdominal hysterectomy 38754,N94.6,N80.9(Not Applicable) - Jimenez Stoner MD s Total Abdominal Hysterectomy(Not Applicable) - Jimenez Stoner MD Was Beta Ade taken within 24 hours: N/A Was Clonidine taken within 24 hours: N/A Last intake: Intake Last Liquid Date 10/27/23 Last Liquid Time 21:30 Last Solid Date 10/27/23 Last Solid Time 18:30 Social No tobacco Exam alert and oriented x 3 Airway Submandibular: within normal limits Mallampati: Class II History/ROS No significant history except as noted and No significant complaints Hx renal stones Anesthetic Plan ASA status: 2 Anesthesia: General Risk of > 500 ml blood loss (7ml/kg in children): No Medications/Allergies Home Medications Medication Instructions Recorded Confirmed Last Taken Type amitriptyline 10 mg tablet 10 mg PO BEDTIME 02/23/23 10/28/23 10/27/23 History ibuprofen 800 mg tablet 800 mg PO Q8H PRN pain 14 days #30 08/13/23 10/28/23 0 10/25/23 Rx tabs methocarbamol 500 mg tablet 500 mg PO TID 15 days #45 tabs 08/13/23 10/28/23 10/21/23 Rx sennosides 8.6 mg-docusate sodium 1 tab-cap PO BID PRN constipation 10/18/23 10/28/23 10/26/23 Rx 50 mg tablet (Senna with Docusate #14 tabs Sodium) Allergies Allergy/AdvReac Type Severity Reaction Status Date / Time latex Allergy ALGY-Rash Verified 10/28/23 06:10 metoclopramide [From Reglan] AdvReac ADR-Anxiety Verified 10/28/23 06:10 Current Medications Generic Name Dose Route Start Last Admin Trade Name Freq PRN Reason Stop Dose Admin Sodium Chloride 1,000 mls @ 30 mls/hr 10/28/23 06:00 10/28/23 06:29 Sodium Chloride 0.9% IV 10/29/23 05:59 30 mls/hr .Q24H ROLANDA Administration PFSH Anesthesia Medical History (Updated 10/18/23 @ 15:44 by Angelo Early MD) Cervical radiculopathy Urolithiasis Nausea and vomiting Recurrent UTI Renal stones Multiple small stones left kidney Migraine (~10/22/22) Endometriosis determined by laparoscopy (~2013) Initially diagnosed with endometriosis in 2013 by laparoscopy. 09/03/2020: Laparoscopy with cauterization of endometriosis History of PID (~2017) Surgical History History of bilateral breast reduction surgery H/O tubal ligation (09/03/20) Laparoscopic bilateral complete salpingectomy, cauterization of pelvic peritoneal endometriosis. Performed by Dr. Rich at [facility] [place] in [place], [place] History of appendectomy (~2017) laparosopic H/O laparoscopy 2013--ov cyst removal; caut of endometriosis 2014-- cautery of endometriosis History of cholecystectomy (~2011) Laparoscopic Family History Mother Hyperlipidemia Hypertension Family history of thyroid problem Social History Smoking and tobacco/nicotine status: never used tobacco/nicotine Second hand smoke exposure: Yes Alcohol intake: former Former alcohol use details: Social before Substance/Drug Use: never Marital status: Current occupational status: employed Female Reproductive History Date of last menstrual period: 10/18/23 Data Anesthesia Cardiac Studies: No Data to Display
[2023-10-28] MEDS: BUPivacaine liposome 13.3 mg/mL SDV 10 mL 133 MG INJECTION (08:09)
[2023-10-28] MEDS: lidocaine-epi 2% 20 mL INJ INJECTION (08:10)
[2023-10-28] MEDS: fentaNYL 50 mcg/mL INJ 2mL IVP ×2 (09:46→09:57)
[2023-10-28] MEDS: HYDROmorphone 1 mg/mL INJ 1 mL 0.5 MG IVP (10:16)
--- NOTE | 2023-10-28 10:50 | P.OP_ITS ---
Operative Report Date of procedure: October 28, 2023 Pre-op diagnosis: chronic pelvic pain chronic dysmenorrhea chronic dyspareunia endometriosis Post-op diagnosis: same Post-op findings: normal uterus and ovaries prior bilateral salpingectomy Procedure done: laparoscopic-assisted vaginal hysterectomy Implants: none Specimens removed/disposition: uterus Surgeon: Christiano Pettit MD Plant Operator Control Room Operator: Jimenez Stoner MD Anesthesia: General Estimated blood loss (mL): 25 Complications: none Condition: stable Disposition: PACU Brief History: 33 y.o. with history of laparoscopically confirmed endometriosis, h/o chronic pelvic pain and dysmenorrhea, scheduled for hysterctomy Procedure: The patient was taken to the operating room, placed supine on the table.? General endotracheal anesthesia was induced.? A hernandez catheter was placed which drained clear urine.? The patient was placed in dorsolithotomy position for laparoscopic surgery.? The abdomen and perineum were prepped and draped in the usual sterile fashion.? A Zumi uterine elevator was placed via the cervix for manipulation of the uterus.? An umbilical skin incision was made measuring approximately 1 cm.? A Veress needle was inserted. ? After confirming intraperitoneal entry, a pneumoperitoneum was achieved.? The Veress needle was removed.? A trocar with sheath was placed.? A laparoscope was inserted and used to visualize the pelvic organs.? Normal uterus, tubes, and ovaries were seen. Two additional skin incisions were made measuring 0.5 cm each in the suprapubic and left lower quadrant.? 5 mm trocars with sheaths were inserted via these incisions under laparoscopic visualization.?? A Ligasure device and endograsper were placed.? The Ligasure device was used to divide the round ligaments on both sides followed by the uteroovarian ligaments.? These were successfully coagulated and divided without any bleeding.?? It was then decided to proceed vaginally to complete the vaginal hysterectomy portion of the procedure.? The pneumoperitoneum was allowed to escape.? The Zumi was removed.? A vaginal Bookwalter retractor was placed.? The cervicovaginal junction was incised and the anterior and posterior cul-de-sacs were entered without any injury to the underlying organs including the bowel and the bladder.? The uterine vessels on both sides were then divided and coagulated without any difficulties.? The uterus was removed.? No bleeding was seen. The vaginal cuff was then closed using a running suture of O-Chromic. The pneumoperitoneum was re-instituted and the pelvis was examined using the laparoscope to confirm good hemostasis. ? Following this, all instruments were removed from the abdomen after the pneumoperitoneum was allowed to escape.? The laparoscopic skin incisions were then closed using 4-O skin sutures.? The patient was placed supine and taken to the recovery room. Postoperative condition stable EBL:? 25 cc Complications:? none To PACU in good condition
[2023-10-28] MEDS: HYDROcodone-acetaminophen 5-325 mg Tablet PO (10:52)
[2023-10-28] MEDS: ketorolac 30 mg/mL INJ IVP ×3 (10:52→23:00)
[2023-10-28] MEDS: dextrose 5%-lactated ringers 1,000 ML 125 ML IV (11:31)
[2023-10-28] MEDS: oxyCODONE-APAP 5-325 mg Tablet PO ×2 (12:20→19:12)
--- NOTE | 2023-10-28 14:21 | ANE.PACU2 ---
Inpatient post-anesthesia follow up: Airway intact: Yes Vital signs: Temperature 97.8 F Pulse Rate 90 Respiratory Rate 18 Blood Pressure 99/60 Pulse Oximetry 100 Oxygen Delivery Me thod Room Air Oxygen Flow Rate Fraction of Inspir ed Oxygen Hydration adequate: Yes Nausea and vomiting: No Pain level: 4 Mental status: Baseline
[2023-10-28] MEDS: morphine 4 mg/mL SDV 1 mL IVP ×2 (14:37→21:06)
[2023-10-28] MEDS: ondansetron 2 mg/ML SDV 2 mL 4 MG IVP ×2 (14:40→17:36)
--- NOTE | 2023-10-28 20:35 | PC.NURSE ---
PT AMBULATED 3 LAPS AROUND UNIT. TOLERATED WELL AND ASSISTED BACK TO BED BY THIS NURSE.
[2023-10-29] MEDS: ondansetron 2 mg/ML SDV 2 mL 4 MG IVP (00:20)
[2023-10-29 00:40] VITALS: RESP 16
[2023-10-29] MEDS: oxyCODONE-APAP 5-325 mg Tablet PO ×2 (00:40→08:07)
[2023-10-29 03:06] VITALS: RESP 16
[2023-10-29] MEDS: morphine 4 mg/mL SDV 1 mL IVP (03:06)
[2023-10-29 05:21] LABS: Hematocrit 29.9 % (36-47); Mean Corpuscular HGB Conc 35.1 g/dL (30-55); Mean Corpuscular Hemoglobin 32.8 pg (27-33); Mean Corpuscular Volume 93.4 fl (85-98); Platelet Count 186 10^3/cmm (157-399); Red Cell Distribution Width 11.3 % (12.1-15.1); White Blood Count 9.15 10^3/uL (3.29-11.43)
[2023-10-29 05:50] VITALS: BP 125/68; PULSE 93; RESP 16; TEMP 36.9
[2023-10-29 08:07] VITALS: RESP 16
[2023-10-29] MEDS: docusate sodium 100 mg Capsule PO (08:07)
[2023-10-29 11:00] VITALS: BP 126/89; PULSE 102; RESP 16; TEMP 36.8
[2023-10-29] MEDS: ibuprofen 800 mg tablet PO (11:02)
--- NOTE | 2023-10-29 11:25 | P.PN_ITS ---
RANGE CONSERVATIONIST Subjective 2 Subjective: Interval history: c/o moderate pain, relieved with pain medications no bleeding tolerating PO voiding well Vitals/I&O/Wt Last Vital Signs Temp 98.2 F 10/29/23 11:00 Pulse 102 H 10/29/23 11:00 Resp 16 10/29/23 11:00 BP 126/89 10/29/23 11:00 Pulse Ox 99 10/28/23 21:16 O2 Del Method Room Air 10/29/23 11:00 Weight last 48 hrs Weight 130 lb Weight 130 lb Physical Exam 2 Narrative: Comfortable Awake, alert Lungs: clear Cor: RRR Abd: soft, nondistended Mild tenderness No rebound Laparoscopic incisions clean and dryExt:nontender Urinary Catheter Management: Mancia: Cath Placed During This Visit: yes, but has since been removed by the nurse Reason for Continuing Indwelling Catheter: Decision to DC Catheter Urinary Catheter Date of Insertion: 10/28/23 Urinary Catheter Time of Insertion: 07:44 Date Urinary Catheter Removed: 10/29/23 Time Urinary Catheter Discontinued: 05:10 Data 10/29/23 05:15 A&P Assessment and plan (1) S/P hysterectomy: POD #1 laparoscopic-assisted vaginal hysterectomy Will discharge patient home Instructions / precautions given Call / return immediately if fever, chills, nausea, vomiting, worsening pain, vaginal bleeding, chest pain, shortness of breath, leg pain or swelling Return to see me in one week Attestations 2 Medical Necessity Statement*: patient s/p hysterectomy, plan discharge to home today Coding Level of Care Code Acute Code for Chg Fwd Diagnoses S/P hysterectomy Z90.710 Time Spent (min) 20
--- NOTE | 2023-10-29 11:50 | PM.OBGYDC ---
Discharge Providers RN ACUTE DIALYSIS Date of Admission: 10/28/23 09:22 Date of Discharge: 10/29/23 Attending Provider at Admission: Jimenez Stoner MD Attending Provider at Discharge: Jimenez Stoner MD Primary RN ACUTE DIALYSIS: Jimenez Stoner MD Primary Care Provider: Adonay Pennington MD Diagnoses at Discharge Discharge Diagnosis (1) S/P hysterectomy: Details from hospital stay: patient s/p laparoscopic-assisted vaginal hysterectomy did well postop was discharged to home on postoperative day #1 Status: Acute Reason for Visit Reason for Visit: N94.6 N80.9 [id number] Brief History: 33 y.o. with h/o endometriosis, chronic pelvic pain, and chronic dysmenorrhea, scheduled for hysterectomy Hospital Course Hospital Course patient did well postoperatively was able to eat, void, and ambulate Physical Exam Narrative: Comfortable Awake, alert Lungs: clear Cor: RRR Abd: soft, nondistended Mild tenderness No rebound Laparoscopic incisions clean and dryExt:nontender Urinary Catheter Management: Mancia: Cath Placed During This Visit: yes, but has since been removed by the nurse Reason for Continuing Indwelling Catheter: Decision to DC Catheter Urinary Catheter Date of Insertion: 10/28/23 Urinary Catheter Time of Insertion: 07:44 Date Urinary Catheter Removed: 10/29/23 Time Urinary Catheter Discontinued: 05:10 History History History 5 Term 4 0 Miscarriages/Ectopic 1 Living Children 4 Discharge Data Studies Completed and Pending Pending at discharge Category Date Time Status Pathology: Surgical [PTH] Routine Pth 10/28/23 08:56 Received Laboratory Results WBC 9.15 10^3/uL (3.29-11.43) 10/29/23 05:15 RBC 3.20 10^6/uL (3.85-5.65) L 10/29/23 05:15 Hgb 10.50 g/dL (11.27-16.99) L 10/29/23 05:15 Hct 29.9 % (36-47) L 10/29/23 05:15 MCV 93.4 fl (85-98) 10/29/23 05:15 MCH 32.8 pg (27-33) 10/29/23 05:15 MCHC 35.1 g/dL (30-55) 10/29/23 05:15 RDW 11.3 % (12.1-15.1) L 10/29/23 05:15 Plt Count 186 10^3/cmm (157-399) 10/29/23 05:15 MPV 9.0 fL (7.4-10.4) 10/29/23 05:15 Urine HCG, Qual Negative (Negative) 10/28/23 06:15 Procedures Performed laparoscopic-assisted vaginal hysterectomy Vitals Last Vital Signs Temp 98.2 F 10/29/23 11:00 Pulse 102 H 10/29/23 11:00 Resp 16 10/29/23 11:00 BP 126/89 10/29/23 11:00 Pulse Ox 99 10/28/23 21:16 O2 Del Method Room Air 10/29/23 11:00 Results Labs OB ([facility]): Obstetrics US 07/18/20 Obstetrics US/Biophysical Profile 06/24/20 Hct 29.9 % (36-47) L 10/29/23 Hgb 10.50 g/dL (11.27-16.99) L 10/29/23 Rho(D) Type Positive 12/14/19 Plt Count 186 10^3/cmm (157-399) 10/29/23 Hep Bs Antibody 175.3 (11.5-1000) 12/02/21 Rubella IgG Antibody 169.4 IU/mL (0.0-10.0) H 12/02/21 VZV IgG Antibody 1052.00 index 12/02/21 Ser , Semi-Qnt 75971.00 mIU/mL 12/14/19 HCG, Qual Negative (Negative) 10/18/23 Micro Urine Specimen 01/24/23 Discharge Plan Discharge Patient Disposition: Home Condition: Stable Prescriptions: New Percocet 5-325 mg tablet 1 tab PO BID PRN (Reason: pain) Qty: 30 0RF Continued methocarbamol 500 mg tablet 500 mg PO TID 15 Days Qty: 45 0RF Rx Instructions: Watch for drowsiness ibuprofen 800 mg tablet 800 mg PO Q8H PRN (Reason: pain) 14 Days Qty: 30 0RF sennosides-docusate sodium [Senna with Docusate Sodium] 8.6-50 mg tablet 1 tab-cap PO BID PRN (Reason: constipation) Qty: 14 0RF amitriptyline 10 mg tablet 10 mg PO BEDTIME No Action oxycodone 10 mg tablet 10 mg PO Q6H PRN (Reason: pain) 5 Days Qty: 20 0RF Discharge Orders: Discharge Order (Routine); Ordered 10/29/23 Ordered By: Jimenez Stoner Referrals: Jimenez Stoner MD [Physician] - 11/03/23 9:00 am Discharge Diet: Usual diet Discharge Activity: Increase activity as tolerated Patient Instructions: Laparoscopic Hysterectomy (GEN), OB Abdominal Surgery - [facility], OB Food/Drug Interaction Guide, Opioid Safety Activity Restrictions/Additional Instructions: call Dr. Stoner at [phone] if problems Discharge Attestations RN ACUTE DIALYSIS Time Spent in Discharge Care*: less than 30 min Coding Level of Care Code Acute Code for Chg Fwd Diagnoses S/P hysterectomy Z90.710 Time Spent (min) 20
== END 2023-10-29 11:20 | disposition home or self-care (01) ==
LOC: OBGYN 09:25
PROVIDERS: Student in an Organized Health Care Education/Training Program; Admitting Provider Obstetrics & Gynecology; PCP Family Medicine; Visit Provider Obstetrics & Gynecology
PROC: 0UT9FZZ Resection of Uterus, Via Natural or Artificial Opening With Percutaneous Endoscopic Assistance (ICD-10-PCS; CPT 58550; principal; 2023-10-28 07:00)
DX: N80.30 Endometriosis of pelvic peritoneum, unspecified (principal); G89.29 Other chronic pain; N94.4 Primary dysmenorrhea; N94.10 Unspecified dyspareunia
CPT/HCPCS: 58550; 81025; 84703; 85027; 88307; C9290; G0378; J0690; J1100; J1170; J1885; J2270; J2371; J2405; J2704; J2710; J3010; J3490; J7030; J7121

== ENCOUNTER → 2023-11-28 12:43 | Outpatient (BNVA) | payer BC, MEDICAID, SELFPAY | PROVIDERS: PCP Family Medicine; Visit Provider Emergency Medicine | DX: M79.641 Pain in right hand (principal); M79.89 Other specified soft tissue disorders | CPT/HCPCS: 73130 ==

== ENCOUNTER → 2024-01-19 09:04 | Outpatient (BNVA) | payer BC, SELFPAY | PROVIDERS: PCP Registered Nurse; Visit Provider Registered Nurse | DX: M19.041 Primary osteoarthritis, right hand (principal); M19.031 Primary osteoarthritis, right wrist; W57.XXXA Bitten or stung by nonvenomous insect and other nonvenomous arthropods, initial encounter; S30.860A Insect bite (nonvenomous) of lower back and pelvis, initial encounter | CPT/HCPCS: 86618; 86666; 86757 ==

== ENCOUNTER → 2024-02-23 10:56 | Outpatient (BNVA) | payer BC, SELFPAY | PROVIDERS: PCP Registered Nurse; Visit Provider Registered Nurse | DX: I73.00 Raynaud's syndrome without gangrene (principal) | CPT/HCPCS: 80053; 82306; 82607; 85025; 86008; 86431 ==

== ENCOUNTER 2024-04-08 22:49 | Emergency (ER) | payer BC, MEDICAID, SELFPAY ==
[2024-04-08 22:53] VITALS: BP 151/86; PULSE 88; RESP 16; TEMP 36.5; O2SAT 100; BMI 21.2
[2024-04-09] MEDS: HYDROcodone-acetaminophen 7.5-325 mg Tablet 1 TAB PO (00:10)
[2024-04-09] MEDS: dexamethasone 10 mg/mL INJ IM (00:11)
[2024-04-09 00:38] VITALS: BP 125/74; PULSE 70; RESP 18; O2SAT 98
--- NOTE | 2024-05-01 22:35 | W.ED.EXTPRO ---
HPI - Extremity Problem General: Chief complaint: Extremity Problem,Nontraumatic Stated complaint: hand pain / unable to flex Time Seen by Provider: 04/08/24 23:24 Source: patient Mode of arrival: ambulatory Limitations: no limitations History of Present Illness: Patient is a 33-year-old female presenting to the emergency department complaining of bilateral swelling to her knuckles and pain worsening since yesterday. Was initially seen in urgent care and prescribed Toradol, states this has not helped and her symptoms have continued to worsen. Denies any history of rheumatological disease that she knows of. States that she is set to follow-up with primary care in regard to this, however the pain is too bad tonight. States that this is affecting her work. No other symptoms reported at this time. MD Complaint: joint swelling and joint pain Onset (ago): day(s) Pain Consistency: constant Location: left, right and upper extremity Relieving factors: nothing Exacerbating factors: range of motion Associated symptoms: Deny chest pain, fever(s) or rash Review of Systems General: Reports: 10 or more systems reviewed and unremarkable except in HPI and below Const: Denies: fever(s) or chills Card: Denies: chest pain Resp: Denies: dyspnea or productive cough GI: Denies: abdominal pain, nausea, vomiting or diarrhea : Denies: flank pain Musc: Reports: joint pain and joint swelling; Denies: neck pain, back pain, extremity pain, extremity swelling, joint redness, joint warmth, limited range of motion or muscle weakness Skin/Breast: Denies: rash Neuro: Denies: headache(s), numbness in extremities or weakness in extremities PFS ED PFSH: Medical History Psychiatric care Constipation Retained ureteral stent Headache, variant migraine Dysmenorrhea Cervical radiculopathy Urolithiasis Nausea and vomiting Recurrent UTI Renal stones Multiple small stones left kidney Migraine (~10/22/22) Endometriosis determined by laparoscopy (~2013) Initially diagnosed with endometriosis in 2013 by laparoscopy. 09/03/2020: Laparoscopy with cauterization of endometriosis History of PID (~2017) Surgical History H/O hysterectomy for benign disease S/P hysterectomy History of bilateral breast reduction surgery H/O tubal ligation (09/03/20) Laparoscopic bilateral complete salpingectomy, cauterization of pelvic peritoneal endometriosis. Performed by Dr. Rich at [facility] in [place], [place] History of appendectomy (~2017) laparosopic H/O laparoscopy 2013--ov cyst removal; caut of endometriosis 2014-- cautery of endometriosis History of cholecystectomy (~2011) Laparoscopic Family History Mother Hyperlipidemia Hypertension Family history of thyroid problem Social History Smoking and tobacco/nicotine status: never used tobacco/nicotine Physical Exam Const: COMMON NORMALS: patient oriented x3, no limitations, healthy appearing, alert and well nourished GENERAL APPEARANCE: in distress (From pain, tearful) HENMT: COMMON NORMALS: normocephalic and atraumatic HEAD & SCALP: normocephalic and atraumatic Neck/C-Spine: COMMON NORMALS: full ROM, supple and no meningeal signs Resp: COMMON NORMALS: normal respiratory effort, No use of accessory muscles and clear to auscultation bilaterally AUSCULTATION: clear to auscultation bilaterally Cardio: COMMON NORMALS: regular rate and regular rhythm RATE: regular rate RHYTHM: regular rhythm Extremity: COMMON NORMALS: capillary refill normal, no joint enlargement and no clubbing, cyanosis or edema NARRATIVE EXTREMITY EXAM: No real appreciable joint swelling at this time, there does appear to be some limited range of motion with flexion of the hands. MCPs bilaterally are tender to palpation. Distal neurovascular exam is intact. GENERAL: Yes normal exam except as noted Neuro: COMMON NORMALS: patient oriented x3, moves all extremities, no focal motor deficits and no sensory deficits noted SENSORIUM/ORIENTATION: Yes alert MENINGEAL SIGNS: Yes no meningeal signs Skin: COMMON NORMALS: no rashes or lesions noted GENERAL SKIN EXAM: no rashes or lesions noted Course Vital Signs: Vital signs: Vital Signs Temperature 97.7 F 04/08/24 22:53 Pulse Rate 70 04/09/24 00:38 Respiratory Rate 18 04/09/24 00:38 Blood Pressure 125/74 04/09/24 00:38 Pulse Oximetry 98 04/09/24 00:38 Oxygen Delivery Me thod Room Air 04/08/24 22:53 MDM - Extremity (Nontraumatic) Medical Decision Making Patient presents with worsening of hand swelling, atraumatic. She was seen in urgent care yesterday and had Toradol shot that has not seemed to help her symptoms. She denies any pertinent past medical history, however I do believe that she would benefit from following up with primary care for a rheumatological workup. X-rays not indicated at this time due to the atraumatic nature and lack of physical exam findings. She will be prescribed short course of pain medication and steroids to take to see if this improves her symptoms, and she will follow-up with primary care as planned. Reasons to return discussed. No radiology studies performed this visit Discharge Plan Discharge Patient Disposition: Home Clinical Impression: Joint swelling Condition: Stable Prescriptions: New hydrocodone-acetaminophen 7.5-325 mg tablet 1 tab PO Q8H PRN (Reason: pain) Qty: 20 0RF Discontinued tramadol 50 mg tablet 50 mg PO BID PRN (Reason: pain) 5 Days Qty: 10 0RF Rx Instructions: To takes as needed for flare up No Action amitriptyline 10 mg tablet 10 mg PO BEDTIME 90 Days Qty: 90 1RF prednisone 5 mg tablet 5 mg PO DAILY Qty: 30 1RF diclofenac sodium 3 % gel 1 applic topical BID 7 Days Qty: 100 0RF Discharge Orders: Discharge ED (Routine); Ordered 04/09/24 Ordered By: Kev Guerra Referrals: Faith Daniel, TECHNOLOGY OFFICER [Primary Care Provider] - Discharge Diet: Usual diet Discharge Activity: Increase activity as tolerated Patient Instructions: Swollen Joint (ED), Opioid Safety, Pain Management Activity Restrictions/Additional Instructions: Steroids as prescribed. Pain medications. Follow-up with rheumatology as discussed. Return with any new or worsening. Coding Level of Care Code ED Fox[employer] Developer for Zenaida Hairston
== END 2024-04-09 00:39 | disposition home or self-care (01) ==
PROVIDERS: Emergency Provider Physician Assistant; PCP Registered Nurse
DX: M25.442 Effusion, left hand (principal); M25.441 Effusion, right hand
CPT/HCPCS: 96372; 99284; J1100

== ENCOUNTER → 2024-04-14 18:17 | Outpatient (BNVA) | payer BC, MEDICAID, SELFPAY | PROVIDERS: PCP Registered Nurse; Visit Provider Family Medicine | DX: J02.9 Acute pharyngitis, unspecified (principal); J01.90 Acute sinusitis, unspecified; R21 Rash and other nonspecific skin eruption | CPT/HCPCS: 87880 ==

== ENCOUNTER 2024-06-03 17:06 | Emergency (ER) | payer BC, MEDICAID, SELFPAY ==
[2024-06-03 17:20] VITALS: BP 113/79; PULSE 118; RESP 24; TEMP 36.8; O2SAT 100; BMI 23.0
[2024-06-03 17:44] LABS: Basophils % 0.3 %; Eosinophils # 0.1 10^3/uL (0.0-0.8); Eosinophils % 1.1 %; Hematocrit 40.7 % (36-47); Lymphocytes # 1.9 10^3/uL (0.8-4.8); Lymphocytes % 29.7 %; Mean Corpuscular HGB Conc 35.4 g/dL (30-55); Mean Corpuscular Hemoglobin 31.4 pg (27-33); Mean Corpuscular Volume 88.7 fl (85-98); Mean Platelet Volume 9.1 fL (7.4-10.4); Monocytes # 0.4 10^3/uL (0.2-0.9); Monocytes % 6.8 %; Neutrophils # 3.94 10^3/uL (1.8-7.7); Neutrophils % 61.8 %; Nucleated Red Blood Cells % 0 %; Platelet Count 218 10^3/cmm (157-399); Red Blood Count 4.59 10^6/uL (3.85-5.65); Red Cell Distribution Width 12.2 % (12.1-15.1); White Blood Count 6.37 10^3/uL (3.29-11.43)
[2024-06-03 17:56] LABS: HCG, Serum Qual Negative (Negative)
[2024-06-03 18:01] LABS: Alanine Aminotransferase < 5 U/L (0-33); Albumin Level 4.7 g/dL (3.5-5.2); Alkaline Phosphatase 44 U/L (35-105); Anion Gap 16.3 (5-19); Aspartate Amino Transferase 17 U/L (0-32); Blood Urea Nitrogen 6 mg/dL (6-20); Calcium 9.5 mg/dL (8.5-10.5); Carbon Dioxide 22 mmol/L (22-29); Chloride 105 mmol/L (98-107); Creatinine Clr Calc Pharmacy 99.2994; Globulin 2.9 g/dL (1.3-4.6); Glomerular Filtration Rate 96.4 mL/min (90-130); Glucose 105 mg/dL (65-115); Lipase 19 U/L (13-60); Osmolality Calculated 286 mOsm/kg (285-295); Potassium 4.3 mmol/L (3.5-5.1); Sodium 139 mmol/L (136-145); Total Bilirubin 0.7 mg/dL (0.15-1.2); Total Protein 7.6 g/dL (6.6-8.7)
--- NOTE | 2024-06-03 18:57 | USR_ITS ---
PROCEDURE INFORMATION: Exam: US Pelvis, Transvaginal, Non-Obstetric Exam date and time: 06/03/2024 7:28 PM Age: 33 years old Clinical indication: Pelvic pain; Prior surgery; Surgery date: 6+ months; Surgery type: Hysterectomy; Additional info: R pelvic pain. ? Vaginal bleeding S/P hysterectomy TECHNIQUE: Imaging protocol: Real-time transvaginal pelvic (non-obstetric) ultrasound with image documentation. Transvaginal imaging was used for better evaluation of the endometrium, adnexa, and/or cervix. COMPARISON: US transvaginal [id number] 06/25/2023 10:02 PM FINDINGS: Uterus: Uterus is absent. Right ovary/adnexa: Right ovary 10 mm complex cyst may reflect a partially collapsed follicle. Right ovary demonstrates color blood flow. Left ovary/adnexa: Left ovary not visualized. Urinary bladder: Debris in the urinary bladder, nonspecific. Intraperitoneal space: No free fluid. US/US transvaginal [id number] IMPRESSION: 1. Uterus is absent. 2. Left ovary not visualized. 3. Right ovary 10 mm complex cyst may reflect a partially collapsed follicle. 4. Right ovary demonstrates color blood flow. 5. Debris in the urinary bladder, nonspecific.
--- NOTE | 2024-06-03 18:57 | CTR_ITS ---
PROCEDURE INFORMATION: Exam: CT Abdomen And Pelvis Without Contrast Exam date and time: 06/03/2024 7:45 PM Age: 33 years old Clinical indication: Abdominal pain; Localized; Lower; Prior surgery; Surgery date: 6+ months; Surgery type: Gb. Appy. Hysterectomy. Patient HX: C/O RT sided pelvic pain with CVA tenderness. ; Additional info: R pelvic pain, CVA pain TECHNIQUE: Imaging protocol: Computed tomography of the abdomen and pelvis without contrast. Radiation optimization: All CT scans at this facility use at least one of these dose optimization techniques: automated exposure control; mA and/or kV adjustment per patient size (includes targeted exams where dose is matched to clinical indication); or iterative reconstruction. COMPARISON: CT abdomen pelvis w con* [id number] 02/23/2023 11:16 AM RADIATION DOSE METRICS: Total DLP (mGy-cm): 338.94 FINDINGS: Liver: Normal. No mass. Gallbladder and biliary ducts: Cholecystectomy. Pancreas: Normal. No ductal dilation. Spleen: Normal. No splenomegaly. Adrenal glands: Normal. No mass. Kidneys and ureters: Left kidney lower pole nonobstructing calyceal stones. Stomach and bowel: Prominent fluid in the small bowel without dilation may reflect an enteritis. Constipation. Appendix: No evidence of appendicitis. Intraperitoneal space: Unremarkable. No free air. No significant fluid collection. Vasculature: Unremarkable. No abdominal aortic aneurysm. Lymph nodes: Unremarkable. No enlarged lymph nodes. Urinary bladder: Unremarkable as visualized. Reproductive: Unremarkable as visualized. Bones/joints: Unremarkable. No acute fracture. Soft tissues: Unremarkable. CT/CT kidney stone [id number] IMPRESSION: 1. Prominent fluid in the small bowel without dilation may reflect an enteritis. 2. Cholecystectomy. 3. Constipation. 4. Left kidney lower pole nonobstructing calyceal stones.
--- NOTE | 2024-06-03 19:11 | W.ED.ABDPA2 ---
HPI - Abdominal Pain General: Chief Complaint: Abdominal Pain Stated Complaint: lower right abd pain Time Seen by Provider: 06/03/24 18:49 History of Present Illness: 33-year-old female presenting with right-sided pelvic pain, radiating into her lower back. Pain started yesterday. No vomiting. No fever. She has noticed spotting in her underwear twice. She has a history of a hysterectomy, cervix included, last October without complication. She has not had problems since that time. She also has a history of cholecystectomy and appendectomy in the past. No diarrhea. No definite blood in the urine. No vaginal discharge otherwise. Related Data Previous Rx's Medication Instructions Recorded amitriptyline 10 mg tablet 10 mg PO BEDTIME 90 days #90 tabs 02/23/24 diclofenac sodium 3 % topical gel 1 applic topical BID 7 days #100 04/07/24 grams celecoxib 200 mg capsule 200 mg PO BID 30 days #60 caps 05/11/24 hydrocodone 7.5 mg-acetaminophen 1 tab PO Q8H PRN pain #7 tabs 06/03/24 325 mg tablet ondansetron 4 mg disintegrating 4 mg PO Q6H PRN nausea and 06/03/24 tablet vomiting #14 tabs Allergies Allergy/AdvReac Type Severity Reaction Status Date / Time latex Allergy ALGY-Rash Verified 06/03/24 17:24 metoclopramide [From Reglan] AdvReac ADR-Anxiety Verified 06/03/24 17:24 [facility] ED PFSH: Medical History Psychiatric care Constipation Retained ureteral stent Headache, variant migraine Dysmenorrhea Cervical radiculopathy Urolithiasis Nausea and vomiting Recurrent UTI Renal stones Multiple small stones left kidney Migraine (~10/22/22) Endometriosis determined by laparoscopy (~2013) Initially diagnosed with endometriosis in 2013 by laparoscopy. 09/03/2020: Laparoscopy with cauterization of endometriosis History of PID (~2017) Surgical History H/O hysterectomy for benign disease S/P hysterectomy History of bilateral breast reduction surgery H/O tubal ligation (09/03/20) Laparoscopic bilateral complete salpingectomy, cauterization of pelvic peritoneal endometriosis. [place] Dr. Rich [place] [facility] [place], [place] History of appendectomy (~2017) laparosopic H/O laparoscopy 2013--ov cyst removal; caut of endometriosis 2014-- cautery of endometriosis History of cholecystectomy (~2011) Laparoscopic Family History Mother Hyperlipidemia Hypertension Family history of thyroid problem Social History Smoking and tobacco/nicotine status: never used tobacco/nicotine Physical Exam Const: COMMON NORMALS: no acute distress GENERAL APPEARANCE: cooperative; not ill appearing and not frail appearing HENMT: COMMON NORMALS: normocephalic, atraumatic and Normal external nose present HEAD & SCALP: normocephalic and atraumatic FACE & SINUS: normal facial exam and face symmetric NOSE: Normal external nose present Eye: COMMON NORMALS: Equal, round and reactive pupils present and EOMs intact bilaterally PUPIL: Yes Equal, round and reactive pupils present Neck/C-Spine: GENERAL: Yes trachea midline Chest: CHEST: Yes Symmetrical chest wall rise Resp: COMMON NORMALS: normal respiratory effort, No retractions, No use of accessory muscles and clear to auscultation bilaterally AUSCULTATION: clear to auscultation bilaterally Cardio: COMMON NORMALS: regular rate and regular rhythm RATE: regular rate RHYTHM: regular rhythm GI: COMMON NORMALS: Normal to inspection, nondistended, normoactive bowel sounds present PALPATION: Yes Tenderness to palpation present (GI) Details: RLQ : BLADDER/KIDNEY EXAM: Yes CVA tenderness on the right Back/Pelvis: GENERAL BACK: Yes CVA tenderness Extremity: COMMON NORMALS: no pedal edema Neuro: LOU COMA SCALE: document GCS findings Lou coma scale eye opening: Spontaneous Lou coma scale verbal response: Orientated [place] coma scale motor response: Obey commands [place] coma scale total score: 15 SENSORY EXAM: Yes extremities (intact) Psych: COMMON NORMALS: speech normal SPEECH: Yes normal speech Skin: COMMON NORMALS: no rashes or lesions noted GENERAL SKIN EXAM: no rashes or lesions noted Course Vital Signs: Vital signs: Vital Signs Temperature 98.2 F 06/03/24 21:52 Pulse Rate 88 06/03/24 21:52 Respiratory Rate 16 06/03/24 21:52 Blood Pressure 119/88 06/03/24 21:52 Pulse Oximetry 100 06/03/24 21:52 Oxygen Delivery Me thod Room Air 06/03/24 21:36 MDM - Abdominal Pain Medical Decision Making 33-year-old female with right-sided pelvic pain radiating into her back. No hematuria. Urinalysis is negative. CBC is normal. BMP is normal. CT shows prominent fluid in the small bowel without dilatation reflecting likely enteritis. No other acute findings. There is some constipation. Transvaginal ultrasound reveals blood flow to the right ovary. There is a 1 cm complex cyst likely representing a collapsed follicle. No masses or fluid collections. She is improved after medication and fluids. She was out discharge with symptomatic control. Close outpatient follow-up. Return for worsening symptoms. Lab Data 06/03/24 17:39 06/03/24 17:39 Labs/Radiology: Radiology Impressions Abdomen/Pelvis CT 06/03/24 18:57 IMPRESSION: 1. Prominent fluid in the small bowel without dilation may reflect an enteritis. 2. Cholecystectomy. 3. Constipation. 4. Left kidney lower pole nonobstructing calyceal stones. Transvaginal US 06/03/24 18:57 IMPRESSION: 1. Uterus is absent. 2. Left ovary not visualized. 3. Right ovary 10 mm complex cyst may reflect a partially collapsed follicle. 4. Right ovary demonstrates color blood flow. 5. Debris in the urinary bladder, nonspecific. Laboratory Results WBC 6.37 10^3/uL (3.29-11.43) 06/03/24 17:39 RBC 4.59 10^6/uL (3.85-5.65) 06/03/24 17:39 Hgb 14.40 g/dL (11.27-16.99) 06/03/24 17:39 Hct 40.7 % (36-47) 06/03/24 17:39 MCV 88.7 fl (85-98) 06/03/24 17:39 MCH 31.4 pg (27-33) 06/03/24 17:39 MCHC 35.4 g/dL (30-55) 06/03/24 17:39 RDW 12.2 % (12.1-15.1) 06/03/24 17:39 Plt Count 218 10^3/cmm (157-399) 06/03/24 17:39 MPV 9.1 fL (7.4-10.4) 06/03/24 17:39 Neut % (Auto) 61.8 % 06/03/24 17:39 Lymph % (Auto) 29.7 % 06/03/24 17:39 [place] % (Auto) 6.8 % 06/03/24 17:39 Eos % (Auto) 1.1 % 06/03/24 17:39 Baso % (Auto) 0.3 % 06/03/24 17:39 Neut # (Auto) 3.94 10^3/uL (1.8-7.7) 06/03/24 17:39 Lymph # (Auto) 1.9 10^3/uL (0.8-4.8) 06/03/24 17:39 [place] # (Auto) 0.4 10^3/uL (0.2-0.9) 06/03/24 17:39 Eos # (Auto) 0.1 10^3/uL (0.0-0.8) 06/03/24 17:39 Baso # (Auto) 0.0 10^3/uL (0.0-0.1) 06/03/24 17:39 Nucleated RBC % (auto) 0 % 06/03/24 17:39 Nucleated RBCs # 0.0 /100WBC 06/03/24 17:39 Sodium 139 mmol/L (136-145) 06/03/24 17:39 Potassium 4.3 mmol/L (3.5-5.1) 06/03/24 17:39 Chloride 105 mmol/L (98-107) 06/03/24 17:39 Carbon Dioxide 22 mmol/L (22-29) 06/03/24 17:39 Anion Gap 16.3 (5-19) 06/03/24 17:39 BUN 6 mg/dL (6-20) 06/03/24 17:39 Creatinine 0.7 mg/dL (0.5-0.9) 06/03/24 17:39 GFR Calculation 96.4 mL/min (90-130) 06/03/24 17:39 Glucose 105 mg/dL (65-115) 06/03/24 17:39 Calculated Osmolality 286 mOsm/kg (285-295) 06/03/24 17:39 Calcium 9.5 mg/dL (8.5-10.5) 06/03/24 17:39 Total Bilirubin 0.7 mg/dL (0.15-1.2) 06/03/24 17:39 AST 17 U/L (0-32) 06/03/24 17:39 ALT < 5 U/L (0-33) 06/03/24 17:39 Alkaline Phosphatase 44 U/L (35-105) 06/03/24 17:39 Total Protein 7.6 g/dL (6.6-8.7) 06/03/24 17:39 Albumin 4.7 g/dL (3.5-5.2) 06/03/24 17:39 Globulin 2.9 g/dL (1.3-4.6) 06/03/24 17:39 Lipase 19 U/L (13-60) 06/03/24 17:39 HCG, Qual Negative (Negative) 06/03/24 17:39 Urine Color Yellow (Yellow) 06/03/24 20:02 Urine Appearance Clear (CLEAR) 06/03/24 20:02 Urine pH 6.0 (5-7) 06/03/24 20:02 Ur Specific [place] 1.004 (1.005-1.030) L 06/03/24 20:02 Urine Protein Negative (Negative) 06/03/24 20:02 Urine Glucose (UA) Negative (Normal) 06/03/24 20:02 Urine Ketones Negative (Negative) 06/03/24 20:02 Urine Blood Negative (Negative) 06/03/24 20:02 Urine Nitrate Negative (Negative) 06/03/24 20:02 Urine Bilirubin Negative (Negative) 06/03/24 20:02 Urine Urobilinogen 1.0 mg/dL (Negative) 06/03/24 20:02 Ur Leukocyte Esterase Negative (Negative) 06/03/24 20:02 Amorphous Sediment Not Reportable 06/03/24 20:02 All radiology interpretation(s) finalized by discharge Discharge Plan Discharge Patient Disposition: Home Clinical Impression: Constipation, Enteritis Abdominal pain Qualifiers: Abdominal location: right lower quadrant Qualified Code(s): R10.31 - Right lower quadrant pain Condition: Stable Prescriptions: New ondansetron 4 mg tablet,disintegrating 4 mg PO Q6H PRN (Reason: nausea and vomiting) Qty: 14 0RF Continued hydrocodone-acetaminophen 7.5-325 mg tablet 1 tab PO Q8H PRN (Reason: pain) Qty: 7 0RF No Action amitriptyline 10 mg tablet 10 mg PO BEDTIME 90 Days Qty: 90 1RF celecoxib 200 mg capsule 200 mg PO BID 30 Days Qty: 60 0RF diclofenac sodium 3 % gel 1 applic topical BID 7 Days Qty: 100 0RF Discharge Orders: Discharge ED (Routine); Ordered 06/03/24 Ordered By: Melo Cuenca Referrals: Faith Daniel, LEAD SOFTWARE ARCHITECT [Primary Care Provider] - 1-3 days Patient Instructions: Abdominal Pain (ED), Opioid Safety, Pain Management Activity Restrictions/Additional Instructions: Return for worsening pain despite treatment, vomiting liquids or medications, fever greater than 100, other concerning symptoms. Take medication for severe pain. Follow-up with your doctor early this coming week. Coding Level of Care Code ED Collection Systems Consultant for Zenaida Hairston
[2024-06-03 20:10] LABS: Charge for UA Resulting for Rev
[2024-06-03 20:13] LABS: Bilirubin Urine Negative (Negative); Blood Urine Negative (Negative); Glucose Urine UA Negative (Normal); Ketones Urine Negative (Negative); Leukocyte Esterase Urine Negative (Negative); Nitrate Urine Negative (Negative); Protein Urine Negative (Negative); Specific Gravity, Urine 1.004 (1.005-1.030); Urine Appearance Clear (CLEAR); Urine Color Yellow (Yellow)
[2024-06-03] MEDS: sodium chloride 0.9% 1,000 ML 999 ML IV (20:24)
[2024-06-03 20:26] VITALS: RESP 18
[2024-06-03] MEDS: morphine 4 mg/mL SDV 1 mL IVP (20:26)
[2024-06-03] MEDS: ondansetron 2 mg/ML SDV 2 mL 4 MG IVP (20:26)
[2024-06-03] MEDS: ketorolac 30 mg/mL INJ 15 MG IVP (20:29)
[2024-06-03 20:31] VITALS: BP 122/82; PULSE 98; O2SAT 99
[2024-06-03] MEDS: magnesium hydroxide 30 mL UDC PO (21:35)
[2024-06-03] MEDS: mineral oil 30 mL UDC PO (21:35)
[2024-06-03] MEDS: lactulose oral liq 20 gm/30 mL UDC PO (21:35)
[2024-06-03 21:36] VITALS: BP 119/88; PULSE 88; RESP 16; O2SAT 100
[2024-06-03 21:52] VITALS: BP 119/88; PULSE 88; RESP 16; TEMP 36.8; O2SAT 100
== END 2024-06-03 21:38 | disposition home or self-care (01) ==
PROVIDERS: Emergency Medicine; Emergency Provider Emergency Medicine; PCP Registered Nurse
DX: R10.31 Right lower quadrant pain (principal); K59.00 Constipation, unspecified; K52.9 Noninfective gastroenteritis and colitis, unspecified
CPT/HCPCS: 36415; 74176; 76830; 80053; 81003; 81015; 83690; 84703; 85025; 96374; 96375; 99285; J1885; J2270; J2405; J7030

== ENCOUNTER 2024-08-04 20:03 | Emergency (ER) | payer BC, MEDICAID, SELFPAY ==
[2024-08-04 20:08] VITALS: BP 130/93; PULSE 102; RESP 17; TEMP 36.4; O2SAT 100; BMI 22.1
--- NOTE | 2024-08-04 20:16 | CTR_ITS ---
PROCEDURE INFORMATION: Exam: CT Abdomen And Pelvis Without Contrast Exam date and time: 08/04/2024 8:50 PM Age: 33 years old Clinical indication: Abdominal pain; Prior surgery; Surgery date: 6+ months; Surgery type: Gb. Appy. Hysterectomy. Patient HX: C/O left flank pain with hematuria. History of left ureteral stent. ; Additional info: Left flank pain, HX of stones- lithotripsy and stent HX TECHNIQUE: Imaging protocol: Computed tomography of the abdomen and pelvis without contrast. Radiation optimization: All CT scans at this facility use at least one of these dose optimization techniques: automated exposure control; mA and/or kV adjustment per patient size (includes targeted exams where dose is matched to clinical indication); or iterative reconstruction. COMPARISON: CT kidney stone [id number] 06/03/2024 7:45 PM RADIATION DOSE METRICS: Total DLP (mGy-cm): 357.17 FINDINGS: Lungs: Clear basilar lung parenchyma. Pleural spaces: No pleural fluid. Heart: Normal heart size. Liver: Normal configuration. Homogeneous parenchyma. Gallbladder and biliary ducts: Prior cholecystectomy. No biliary tree dilation or high-density retained stones appreciated. Pancreas: Normal. No ductal dilation. Spleen: Normal. No splenomegaly. Adrenal glands: Normal configuration. Kidneys and ureters: Several tiny left intrarenal stones are noted. There is no evidence of hydronephrosis. No visible ureteral stones on either side. Stomach and bowel: Unremarkable. No obstruction. No mural thickening. Appendix: Prior appendectomy. Intraperitoneal space: No free air. No significant fluid collection. Vasculature: Normal caliber arterial structures. Lymph nodes: No enlarged lymph nodes. Urinary bladder: Unremarkable as visualized. Reproductive: Prior hysterectomy. No evidence of vaginal cuff or adnexal mass. Bones/joints: Normal spine. Widely patent spinal canal and neural foramina. No acute fracture or destructive lesion. Soft tissues: Unremarkable. CT/CT kidney stone [id number] IMPRESSION: Left intrarenal stones are noted, but there are no visible ureteral stones and no findings of renal obstruction. Etiology of patient's hematuria is unclear.
--- NOTE | 2024-08-04 20:17 | W.ED.ABDPA2 ---
HPI - Abdominal Pain General: Chief Complaint: Abdominal Pain Stated Complaint: ABD Pain Possible Kidney Stone Time Seen by Provider: 08/04/24 20:09 Source: patient Mode of arrival: ambulatory Limitations: no limitations History of Present Illness: Patient presents emergency department today for evaluation treatment of left flank pain and concerns for kidney stone. Patient states she noticed discomfort yesterday and her left mid back region which continues today however, throughout the day she has now developed left flank pain. She is nauseated but has not had any vomiting as she admits she has not taken anything orally today. She has felt chills but no fevers. States she has tried Tylenol and ibuprofen for her pain already. Feels her urine is darker but has not seen any blood. Patient has a significant history of recurrent kidney stones stating she has 1 about every year since she was 22 years old. Has had to undergo lithotripsy and stenting in the past. Related Data Previous Rx's Medication Instructions Recorded amitriptyline 10 mg tablet 10 mg PO BEDTIME 90 days #90 tabs 02/23/24 diclofenac sodium 3 % topical gel 1 applic topical BID 7 days #100 04/07/24 grams celecoxib 200 mg capsule 200 mg PO BID 30 days #60 caps 05/11/24 hydrocodone 7.5 mg-acetaminophen 1 tab PO Q8H PRN pain #7 tabs 06/03/24 325 mg tablet ondansetron 4 mg disintegrating 4 mg PO Q6H PRN nausea and 06/03/24 tablet vomiting #14 tabs oxycodone-acetaminophen 5 mg-325 1 tab PO Q8H PRN pain 10 days #30 06/06/24 mg tablet (Percocet) tabs ketorolac 10 mg tablet 10 mg PO Q8H PRN pain 2 days #6 08/04/24 tabs ondansetron 4 mg disintegrating 4 mg PO Q8H 5 days #15 tabs 08/04/24 tablet tizanidine 4 mg capsule 4 mg PO Q8H PRN muscle spasticity 08/04/24 #20 caps Allergies Allergy/AdvReac Type Severity Reaction Status Date / Time latex Allergy ALGY-Rash Verified 08/04/24 20:11 metoclopramide [From Reglan] AdvReac ADR-Anxiety Verified 08/04/24 20:11 Review of Systems General: Reports: 10 or more systems reviewed and unremarkable except in HPI and below PFSH ED PFSH: Medical History Psychiatric care Constipation Retained ureteral stent Headache, variant migraine Dysmenorrhea Cervical radiculopathy Urolithiasis Nausea and vomiting Recurrent UTI Renal stones Multiple small stones left kidney Migraine (~10/22/22) Endometriosis determined by laparoscopy (~2013) Initially diagnosed with endometriosis in 2013 by laparoscopy. 09/03/2020: Laparoscopy with cauterization of endometriosis History of PID (~2017) Surgical History H/O hysterectomy for benign disease S/P hysterectomy History of bilateral breast reduction surgery H/O tubal ligation (09/03/20) Laparoscopic bilateral complete salpingectomy, cauterization of pelvic peritoneal endometriosis. [place] [facility] [place] History of appendectomy (~2017) laparosopic H/O laparoscopy 2013--ov cyst removal; caut of endometriosis 2014-- cautery of endometriosis History of cholecystectomy (~2011) Laparoscopic Family History Mother Hyperlipidemia Hypertension Family history of thyroid problem Social History Smoking and tobacco/nicotine status: never used tobacco/nicotine Physical Exam Const: COMMON NORMALS: patient oriented x3 and alert OTHER: Patient answers her own history but is obviously uncomfortable in bed. HENMT: COMMON NORMALS: normocephalic, atraumatic, hearing grossly normal bilaterally and moist oral mucous membranes HEAD & SCALP: normocephalic and atraumatic Eye: COMMON NORMALS: Equal, round and reactive pupils present, EOMs intact bilaterally and conjunctivae normal CONJUNCTIVA: Yes conjunctivae normal PUPIL: Yes Equal, round and reactive pupils present Neck/C-Spine: COMMON NORMALS: full ROM and no JVD Lymph: LYMPHATIC: no lymphadenopathy noted Resp: COMMON NORMALS: normal respiratory effort, No retractions, No use of accessory muscles and clear to auscultation bilaterally AUSCULTATION: clear to auscultation bilaterally Cardio: COMMON NORMALS: no JVD, regular rate and regular rhythm RATE: regular rate RHYTHM: regular rhythm Back/Pelvis: COMMON NORMALS: no thoracic nor lumbar tenderness and thoraco-lumbar ROM normal OTHER: No right CVA tenderness. Positive left CVA tenderness on percussion. Extremity: COMMON NORMALS: normal to inspection, full ROM and capillary refill normal Neuro: COMMON NORMALS: patient oriented x3 SENSORIUM/ORIENTATION: Yes alert Psych: COMMON NORMALS: mental status grossly normal, Normal thought process present, cooperative, normal affect and activity/motor behavior normal THOUGHT PROCESS: Normal thought process present Skin: COMMON NORMALS: no rashes or lesions noted and no wounds GENERAL SKIN EXAM: no rashes or lesions noted Course Vital Signs: Vital signs: Vital Signs Temperature 97.6 F 08/04/24 20:08 Pulse Rate 16 L 08/04/24 20:41 Respiratory Rate 16 08/04/24 20:42 Blood Pressure 130/93 08/04/24 20:08 Pulse Oximetry 100 08/04/24 20:42 Oxygen Delivery Me thod Room Air 08/04/24 20:41 MDM - Abdominal Pain Medical Decision Making Patient presented to the emergency department today for evaluation and treatment of going on 24 hours of left flank pain. Patient states yesterday she began having left back pain which is now wraps around to the front. She has not been vomiting but admits to not taking anything orally today. She has been chilled but no fevers. Has a long history of kidney stones. Has had to see urology in the past. Labs today are unremarkable. Urinalysis is also unremarkable. CT examination shows left renal stones but no active stone and no signs of hydroureter or hydronephrosis. Given patient's familiarity with signs and symptoms of kidney stone, patient may have already passed the stone and is dealing with residual discomfort. Will treat symptomatically for the next few days with close observation and recommendations for follow-up with her primary care doctor at the beginning of the week. However, strict return precautions through the weekend were given for any change or worsening in her condition. Differential Diagnosis Likely abdominal pain and calculus of kidney; Unlikely acute appendicitis, diverticulitis, gastroenteritis or small bowel obstruction Lab Data 08/04/24 20:24 08/04/24 20:24 Labs/Radiology: Radiology Impressions Abdomen/Pelvis CT 08/04/24 20:16 IMPRESSION: Left intrarenal stones are noted, but there are no visible ureteral stones and no findings of renal obstruction. Etiology of patient's hematuria is unclear. Laboratory Results WBC 8.20 10^3/uL (3.29-11.43) 08/04/24 20: RBC 4.48 10^6/uL (3.85-5.65) 08/04/24 20:24 Hgb 14.10 g/dL (11.27-16.99) 08/04/24 20: Hct 40.2 % (36-47) 08/04/24 20: MCV 89.7 fl (85-98) 08/04/24 20: MCH 31.5 pg (27-33) 08/04/24 20: MCHC 35.1 g/dL (30-55) 08/04/24: RDW 11.9 % (12.1-15.1) L 08/04/24 20: Plt Count 217 10^3/cmm (157-399) 08/04/24 20: MPV 9.2 fL (7.4-10.4) 08/04/24 20: Neut % (Auto) 76.1 % 08/04/24 20: Lymph % (Auto) 16.5 % 08/04/24 20: [place] % (Auto) 6.3 % 08/04/24 20: Eos % (Auto) 0.9 % 08/04/24: Baso % (Auto) 0.1 % 08/04/24:24 Neut # (Auto) 6.24 10^3/uL (1.8-7.7) 08/04/24: Lymph # (Auto) 1.4 10^3/uL (0.8-4.8) 08/04/24 20:24 [place] # (Auto) 0.5 10^3/uL (0.2-0.9) 08/04/24 20: Eos # (Auto) 0.1 10^3/uL (0.0-0.8) 08/04/24 20:24 Baso # (Auto) 0.0 10^3/uL (0.0-0.1) 08/04/24 20:24 Nucleated RBC % (auto) 0 % 08/04/24: Nucleated RBCs # 0.0 /100WBC 08/04/24 20:24 Sodium 138 mmol/L (136-145) 08/04/24 20:24 Potassium 4.3 mmol/L (3.5-5.1) 08/04/24 20:24 Chloride 105 mmol/L (98-107) 08/04/24 20:24 Carbon Dioxide 22 mmol/L (22-29) 08/04/24 20:24 Anion Gap 15.3 (5-19) 08/04/24 20:24 BUN 8 mg/dL (6-20) 08/04/24 20:24 Creatinine 0.6 mg/dL (0.5-0.9) 08/04/24 20:24 GFR Calculation 115.1 mL/min (90-130) 08/04/24 20:24 Glucose 112 mg/dL (65-115) 08/04/24 20:24 Calculated Osmolality 285 mOsm/kg (285-295) 08/04/24 20:24 Calcium 9.6 mg/dL (8.5-10.5) 08/04/24 20:24 Total Bilirubin 0.4 mg/dL (0.15-1.2) 08/04/24 20:24 AST 30 U/L (0-32) 08/04/24 20:24 ALT 35 U/L (0-33) H 08/04/24 20:24 Alkaline Phosphatase 62 U/L (35-105) 08/04/24 20:24 Total Protein 8.1 g/dL (6.6-8.7) 08/04/24 20:24 Albumin 4.8 g/dL (3.5-5.2) 08/04/24 20:24 Globulin 3.3 g/dL (1.3-4.6) 08/04/24 20:24 HCG, Qual Negative (Negative) 08/04/24 20:15 Urine Color Yellow (Yellow) 08/04/24 20:15 Urine Appearance Clear (CLEAR) 08/04/24 20:15 Urine pH 5.5 (5-7) 08/04/24 20:15 Ur Specific [place] 1.006 (1.005-1.030) 08/04/24 20:15 Urine Protein Negative (Negative) 08/04/24 20:15 Urine Glucose (UA) Negative (Normal) 08/04/24 20: Urine Ketones Negative (Negative) 08/04/24 20:15 Urine Blood Negative (Negative) 08/04/24 20:15 Urine Nitrate Negative (Negative) 08/04/24 20:15 Urine Bilirubin Negative (Negative) 08/04/24 20:15 Urine Urobilinogen 0.2 mg/dL (Negative) 08/04/24 20:15 Ur Leukocyte Esterase Negative (Negative) 08/04/24 20:15 Urine RBC 0-2 /hpf (0-2) 08/04/24 20:15 Urine WBC 0-5 /hpf (0-5) 08/04/24 20:15 Ur Squamous Epith Cells 0-5 /hpf (0-5) 08/04/24 20:15 Amorphous Sediment Not Reportable 08/04/24 20:15 Urine Bacteria None seen /hpf (NONE) 08/04/24 20:15 Hyaline Casts 0-4 /lpf H 08/04/24 20:15 All radiology interpretation(s) finalized by discharge Discharge Plan Discharge Patient Disposition: Home Clinical Impression: Calculus of kidney, Acute left flank pain Condition: Stable Prescriptions: New ketorolac 10 mg tablet 10 mg PO Q8H PRN (Reason: pain) 2 Days Qty: 6 0RF ondansetron 4 mg tablet,disintegrating 4 mg PO Q8H 5 Days Qty: 15 0RF tizanidine 4 mg capsule 4 mg PO Q8H PRN (Reason: muscle spasticity) Qty: 20 0RF No Action amitriptyline 10 mg tablet 10 mg PO BEDTIME 90 Days Qty: 90 1RF celecoxib 200 mg capsule 200 mg PO BID 30 Days Qty: 60 0RF oxycodone-acetaminophen [Percocet] 5-325 mg tablet 1 tab PO Q8H PRN (Reason: pain) 10 Days Qty: 30 0RF diclofenac sodium 3 % gel 1 applic topical BID 7 Days Qty: 100 0RF ondansetron 4 mg tablet,disintegrating 4 mg PO Q6H PRN (Reason: nausea and vomiting) Qty: 14 0RF hydrocodone-acetaminophen 7.5-325 mg tablet 1 tab PO Q8H PRN (Reason: pain) Qty: 7 0RF Discharge Orders: Discharge ED (Routine); Ordered 08/04/24 Ordered By: Faiza Van Referrals: Faith Daniel, [employer] [Primary Care Provider] - Discharge Diet: Usual diet Discharge Activity: Increase activity as tolerated Patient Instructions: Kidney Stones (ED) Activity Restrictions/Additional Instructions: Labs today are stable without any signs of acute kidney damage. Urinalysis is also unremarkable. CT examination again confirms findings of stones in your left kidney but no signs of any active stone in the ureter and no signs of any backed up urine of the ureter or the kidney. Is very possible that you have passed the stone however, because of the passing has caused residual injury and pain to the ureter thus resulting in continued discomfort today. Unfortunately, as you may recall, you may have tenderness and soreness in your flank for a couple of days after passing a kidney stone. I am giving use medication to help with this pain and discomfort but, would like you to begin increasing your fluids to help flush through your kidney and ureters as it heals. Follow-up with your doctor at the beginning of the week or, if you have any change or worsening of your condition through the weekend would recommend you be seen and reevaluated back here in the ER. Coding Level of Care Code ED [employer]per for Zenaida Hairston
[2024-08-04 20:29] LABS: Basophils % 0.1 %; Eosinophils # 0.1 10^3/uL (0.0-0.8); Eosinophils % 0.9 %; Hematocrit 40.2 % (36-47); Lymphocytes # 1.4 10^3/uL (0.8-4.8); Lymphocytes % 16.5 %; Mean Corpuscular HGB Conc 35.1 g/dL (30-55); Mean Corpuscular Hemoglobin 31.5 pg (27-33); Mean Corpuscular Volume 89.7 fl (85-98); Mean Platelet Volume 9.2 fL (7.4-10.4); Monocytes # 0.5 10^3/uL (0.2-0.9); Monocytes % 6.3 %; Neutrophils # 6.24 10^3/uL (1.8-7.7); Neutrophils % 76.1 %; Nucleated Red Blood Cells % 0 %; Platelet Count 217 10^3/cmm (157-399); Red Blood Count 4.48 10^6/uL (3.85-5.65); Red Cell Distribution Width 11.9 % (12.1-15.1)
[2024-08-04] MEDS: tamsulosin 0.4 mg Capsule PO (20:32)
[2024-08-04] MEDS: sodium chloride 0.9% 1,000 ML 999 ML IV (20:39)
[2024-08-04] MEDS: ondansetron 2 mg/ML SDV 2 mL 4 MG IVP (20:40)
[2024-08-04] MEDS: ketorolac 30 mg/mL INJ IVP (20:40)
[2024-08-04 20:41] VITALS: PULSE 16; RESP 18
[2024-08-04 20:42] VITALS: RESP 16; O2SAT 100
[2024-08-04] MEDS: morphine 4 mg/mL SDV 1 mL IVP (20:42)
[2024-08-04 20:52] LABS: Alanine Aminotransferase 35 U/L (0-33); Albumin Level 4.8 g/dL (3.5-5.2); Alkaline Phosphatase 62 U/L (35-105); Anion Gap 15.3 (5-19); Aspartate Amino Transferase 30 U/L (0-32); Blood Urea Nitrogen 8 mg/dL (6-20); Calcium 9.6 mg/dL (8.5-10.5); Carbon Dioxide 22 mmol/L (22-29); Chloride 105 mmol/L (98-107); Creatinine Clr Calc Pharmacy 113.9393; Globulin 3.3 g/dL (1.3-4.6); Glomerular Filtration Rate 115.1 mL/min (90-130); Glucose 112 mg/dL (65-115); Osmolality Calculated 285 mOsm/kg (285-295); Potassium 4.3 mmol/L (3.5-5.1); Sodium 138 mmol/L (136-145); Total Bilirubin 0.4 mg/dL (0.15-1.2); Total Protein 8.1 g/dL (6.6-8.7)
[2024-08-04 20:55] LABS: Bilirubin Urine Negative (Negative); Blood Urine Negative (Negative); Glucose Urine UA Negative (Normal); Ketones Urine Negative (Negative); Leukocyte Esterase Urine Negative (Negative); Nitrate Urine Negative (Negative); Protein Urine Negative (Negative); Specific Gravity, Urine 1.006 (1.005-1.030); Urine Appearance Clear (CLEAR); Urine Color Yellow (Yellow); Urobilinogen Urine 0.2 mg/dL (Negative); pH Urine 5.5 (5-7)
[2024-08-04 20:57] LABS: HCG Qualitative Urine. Negative (Negative)
[2024-08-04 21:00] LABS: Add Urine Microscopic? YES; Bacteria Urine None Seen /hpf; Hyaline Casts Urine 0-4 /lpf; RBC Urine 0-2 /hpf (0-2); Squamous Epithelial Cell Urine 0-5 /hpf (0-5); WBC Urine 0-5 /hpf (0-5)
[2024-08-04 22:18] VITALS: BP 119/86; PULSE 114; RESP 16; O2SAT 100
--- NOTE | 2024-08-04 22:22 | PC.NURSE ---
Pt was sent home with Hydrocodone 5/325 per Providers orders.
== END 2024-08-04 22:03 | disposition home or self-care (01) ==
PROVIDERS: Emergency Medicine; Emergency Provider Physician Assistant; PCP Registered Nurse
DX: N20.0 Calculus of kidney (principal); Z87.442 Personal history of urinary calculi; Z87.440 Personal history of urinary (tract) infections
CPT/HCPCS: 74176; 80053; 81001; 81025; 85025; 96361; 96374; 96375; 99285; J1885; J2270; J2405; J7030

== ENCOUNTER → 2024-08-29 15:54 | Outpatient (BNVA) | payer BC, MEDICAID, SELFPAY | PROVIDERS: PCP Registered Nurse; Visit Provider Registered Nurse | DX: M13.80 Other specified arthritis, unspecified site (principal) | CPT/HCPCS: 86038; 86140 ==

== ENCOUNTER → 2024-11-15 09:02 | Outpatient (BNVA) | payer BC, MEDICAID, SELFPAY | PROVIDERS: PCP Registered Nurse; Visit Provider Registered Nurse | DX: R68.89 Other general symptoms and signs (principal); J98.8 Other specified respiratory disorders | CPT/HCPCS: 87400 ==

== ENCOUNTER → 2025-06-29 18:39 | Outpatient (BNVA) | payer BC, MEDICAID, SELFPAY | PROVIDERS: PCP Registered Nurse; Visit Provider Emergency Medicine | DX: M25.511 Pain in right shoulder (principal) | CPT/HCPCS: 73030 ==

== ENCOUNTER → 2025-07-12 14:41 | Outpatient (BNVA) | payer BC, MEDICAID, SELFPAY | PROVIDERS: PCP Registered Nurse; Visit Provider Registered Nurse | DX: E86.0 Dehydration (principal); A08.4 Viral intestinal infection, unspecified; R11.2 Nausea with vomiting, unspecified | CPT/HCPCS: 80053; 81000; 85025 ==

== ENCOUNTER 2025-09-11 09:25 | Outpatient (CLI) | payer BC, MEDICAID, SELFPAY ==
[2025-09-11 09:57] LABS: Hematocrit 38.6 % (36-47); Hemoglobin 13.70 g/dL (11.27-16.99); Mean Corpuscular HGB Conc 35.5 g/dL (30-55); Mean Corpuscular Hemoglobin 31.9 pg (27-33); Mean Corpuscular Volume 89.8 fl (85-98); Nucleated Red Blood Cells % 0 %; Platelet Count 285 10^3/cmm (157-399); Red Blood Count 4.30 10^6/uL (3.85-5.65); White Blood Count 7.41 10^3/uL (3.29-11.43)
[2025-09-11 10:15] LABS: Alanine Aminotransferase 6 U/L (0-33); Albumin Level 4.9 g/dL (3.5-5.2); Alkaline Phosphatase 53 U/L (35-105); Anion Gap 14.3 (5-19); Aspartate Amino Transferase 13 U/L (0-32); Blood Urea Nitrogen 5 mg/dL (6-20); Calcium 9.4 mg/dL (8.5-10.5); Carbon Dioxide 27 mmol/L (22-29); Chloride 101 mmol/L (98-107); Globulin 3.0 g/dL (1.3-4.6); Glucose 93 mg/dL (65-115); Osmolality Calculated 285 mOsm/kg (285-295); Potassium 3.3 mmol/L (3.5-5.1); Sodium 139 mmol/L (136-145); Total Protein 7.9 g/dL (6.6-8.7)
[2025-09-11 10:36] LABS: Hepatitis B Surface Antigen Non-Reactive (Nonreactive)
== END 2025-09-11 09:26 | disposition home or self-care (01) ==
LOC: LAB 09:28
PROVIDERS: PCP Registered Nurse; Visit Provider Dermatology
DX: Z79.899 Other long term (current) drug therapy (principal)
CPT/HCPCS: 36415; 80048; 80076; 85025; 86480; 86704; 86706; 86803; 87340